=== PATIENT | male | born 1955 | race Caucasian/White ===

== ENCOUNTER 2016-05-09 21:38 | Observation (INO) | payer MEDICAID ==
[~2016-05-09 21:38] MED LIST: REGADENOSON INJ 0.4 MG/5 ML DISP.SYRIN IV ONE
--- NOTE | 2016-05-09 22:01 | ER Document Report ---
ED Medical Screen (RME) - General Stated Complaint: CHEST PAIN Notes: 61 yo male c/o substernal chest pain, intermittant, x 1 hr. pressure. nonradiating. + nausea, + shortness of breath. 3/5. pt took 1 Ntg spray with some relief. presently 2/5. Hx/o PA x 2. CABG x 6 in 2004. + HTN, no DM. former smoker. BP is elevated. pt reports being under alot of stress recently. 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 TRAVEL OUTSIDE OF THE [place] IN LAST 30 DAYS: No - Related Data Allergies/Adverse Reactions: No Known Allergies Allergy (Unverified 05/04/14 13:05) Past Medical History - Past Medical History Cardiac Medical History: Reports: Hx Congestive Heart Failure, Hx Coronary Artery Disease, Hx Heart Attack, Hx Hypercholesterolemia, Hx Hypertension Pulmonary Medical History: Denies: Hx Asthma, Hx Bronchitis, Hx COPD, Hx Pneumonia Neurological Medical History: Denies: Hx Cerebrovascular Accident, Hx Seizures Malignancy Medical History: Reports Hx Prostate Cancer Musculoskeltal Medical History: Denies Hx Arthritis - Immunizations Hx Diphtheria, Pertussis, Tetanus Vaccination: Yes
--- NOTE | 2016-05-09 22:06 | ER Document Report ---
ED General - General Chief Complaint: Chest Pain Stated Complaint: CHEST PAIN Notes: Patient is 61-year-old male who presents with complaint of chest pain shortness of breath. He had a AK in 2004 and had coronary artery bypass. No fevers. No vomiting. No abdominal pain. Patient says that the pain is mostly in the substernal area and nonradiating. He also short of breath and gets up and exerts himself. Pain has since subsided after he took nitroglycerin and aspirin at home. He took nitroglycerin and aspirin just prior to come to ER. He still smokes shortness of breath. No recent changes in his medications. He is followed by heart doctor at [facility]. No cardiac catheterization since his bypass. Last cardiac stress test was a few years ago. TRAVEL OUTSIDE OF THE [place] IN LAST 30 DAYS: No - Related Data Allergies/Adverse Reactions: No Known Allergies Allergy (Unverified 05/04/14 13:05) Past Medical History - Social History Smoking Status: Former Smoker Frequency of alcohol use: None Drug Abuse: None Family History: Reviewed & Not Pertinent Patient has suicidal ideation: No Patient has homicidal ideation: No - Past Medical History Cardiac Medical History: Reports: Hx Congestive Heart Failure, Hx Coronary Artery Disease, Hx Heart Attack, Hx Hypercholesterolemia, Hx Hypertension Pulmonary Medical History: Denies: Hx Asthma, Hx Bronchitis, Hx COPD, Hx Pneumonia Neurological Medical History: Denies: Hx Cerebrovascular Accident, Hx Seizures Renal/ Medical History: Denies: Hx Peritoneal Dialysis Malignancy Medical History: Reports Hx Prostate Cancer Musculoskeltal Medical History: Denies Hx Arthritis - Immunizations Hx Diphtheria, Pertussis, Tetanus Vaccination: Yes Review of Systems - Review of Systems Notes: My Normal Review Basic REVIEW OF SYSTEMS: CONSTITUTIONAL : Denies fever, chills, or sweats. Denies recent illness. EENT: Denies eye, ear, throat, or mouth pain or symptoms. Denies nasal or sinus congestion. CARDIOVASCULAR: Had chest pain RESPIRATORY: Some dyspnea. GASTROINTESTINAL: Denies abdominal pain. Denies nausea, vomiting, or diarrhea. Denies constipation. Last BM: MUSCULOSKELETAL: Denies neck or back pain or joint pain or swelling. SKIN: Denies rash or skin lesions. NEUROLOGICAL: Denies altered mental status or loss of consciousness. Denies headache. Denies weakness or paralysis or loss of use of either side. Denies problems with gait or speech. Denies sensory or motor loss. ALL OTHER SYSTEMS REVIEWED AND NEGATIVE. Physical Exam - Vital signs Vitals: Temp Pulse BP Pulse Ox 98.2 F 77 155/103 H 95 05/09/16 21:51 05/09/16 21:51 05/09/16 21:51 05/09/16 21:51 - Notes Notes: General Appearance: Well nourished, alert, cooperative, no acute distress, no obvious discomfort. Well-appearing. Vitals: reviewed, See vital signs table. Head: no swelling or tenderness to the head Eyes: PERRL, EOMI, Conjuctiva clear Mouth: No decreasd moisture Neck: Supple, no neck tenderness, No thyromegaly Lungs: No wheezing, No rales, No rhonci, No accessory muscle use, good air exchange bilaterally. Heart: Normal rate, Regular rythm, No murmur, no rub Abdomen: Normal BS, soft, No rigidity, No abdominal tenderness, No guarding, no rebound, no abdominal masses, no organomegaly Extremities: strength 5/5 in all extremities, good pulses in all extremities, no swelling or tenderness in the extremities, no edema. Skin: warm, dry, appropriate color, no rash Neuro: speech clear, oriented x 3, normal affect, responds appropriately to questions. Course - Re-evaluation Re-evalutation: 05/09/16 23:27 - Vital Signs Vital signs: Temp Pulse Resp BP Pulse Ox 98.2 F 77 15 158/86 H 95 05/09/16 21:51 05/09/16 21:51 05/09/16 22:25 05/09/16 22:25 05/09/16 22:25 - Laboratory Result Diagrams: 05/09/16 22:17 05/09/16 22:17 Laboratory results interpreted by me: 05/09/16 22:17 RBC 4.23 L Hgb 12.6 L Hct 37.4 L - EKG Interpretation by Me Additional EKG results interpreted by me: 05/09/16 22:05 EKG is reviewed and interpreted by me. EKG shows normal sinus rhythm with rate of [address] segment elevation or depression. No ischemic T wave inversions. Occasional PVC. WA interval, QRS duration, QTC intervals are within normal range. There is no old EKG available for comparison. 05/09/16 22:07 05/09/16 23:40 - Transfer of Care Notes: 05/09/16 23:27 Patient is currently chest pain-free and the nitroglycerin did help his shortness of breath. He feels much improved. I am still concerned that symptoms could be related to coronary disease based on his history is Q symptoms today. I will speak with the hospitalist for consideration for admission. Discharge - Discharge Clinical Impression: Chest pain Qualifiers: Chest pain type: unspecified Qualified Code(s): R07.9 - Chest pain, unspecified Condition: Stable Disposition: ADMITTED OBSERVATION Admitting Provider: Hospitalist Unit Admitted: Telemetry
[2016-05-09] MEDS ORDERED: NITROGLYCERIN 2% OINTMENT 1 GM PACKET TP ONE (22:12)
[2016-05-09 22:29] LABS: ABSOLUTE BASOPHILS # (AUTO) 0.1 10^3/uL (0.0-0.2); ABSOLUTE EOSINOPHILS # (AUTO) 0.2 10^3/uL (0.0-0.6); ABSOLUTE LYMPHOCYTES (AUTO) 1.5 10^3/uL (0.5-4.7); ABSOLUTE MONOCYTES (AUTO) 0.7 10^3/uL (0.1-1.4); ABSOLUTE NEUT (AUTO) 5.2 10^3/uL (1.7-8.2); BASOPHILS % (AUTO) 0.8 % (0-2); HEMATOCRIT 37.4 % (37.9-51.0); HEMOGLOBIN 12.6 g/dL (13.5-17.0); HGB HCT DIFFERENCE 0.4; LYMPHOCYTES % (AUTO) 19.8 % (13-45); MEAN CORPUSCULAR HEMOGLOBIN 29.8 pg (27.0-33.4); MEAN CORPUSCULAR HGB CONC 33.8 g/dL (32.0-36.0); MEAN CORPUSCULAR VOLUME 88 fl (80-97); MONOCYTES % (AUTO) 8.6 % (3-13); RED BLOOD COUNT 4.23 10^6/uL (4.35-5.55); RED CELL DISTRIBUTION WIDTH 13.8 % (11.5-14.0); SEGMENTED NEUTROPHILS % (AUTO) 67.8 % (42-78); WHITE BLOOD COUNT 7.6 10^3/uL (4.0-10.5)
[2016-05-09 22:48] LABS: ALANINE AMINOTRANSFERASE 27 U/L (21-72); ALBUMIN 4.4 g/dL (3.5-5.0); ALKALINE PHOSPHATASE 60 U/L (38-126); ANION GAP 10 (5-19); ASPARTATE AMINO TRANSFERASE 18 U/L (17-59); BILIRUBIN,TOTAL 0.7 mg/dL (0.2-1.3); BLOOD UREA NITROGEN 18 mg/dL (7-20); CALCIUM 9.7 mg/dL (8.4-10.2); CARBON DIOXIDE 29 mmol/L (22-30); CHLORIDE 104 mmol/L (98-107); CREATINE KINASE 64 U/L (55-170); CREATININE RESULT 0.81 mg/dL (0.52-1.25); GLUCOSE 100 mg/dL (75-110); POTASSIUM 4.3 mmol/L (3.6-5.0); SODIUM 142.8 mmol/L (137-145); TOTAL PROTEIN 6.9 g/dL (6.3-8.2)
[2016-05-09 23:00] LABS: CREATINE KINASE MB 0.71 ng/mL (<4.55)
[2016-05-09 23:01] LABS: TROPONIN I < 0.012 ng/mL
[2016-05-09] MEDS ORDERED: NITROGLYCERIN 0.4 MG/TAB 25 TAB/BOTTLE SL PRN (23:42)
[2016-05-09] MEDS ORDERED: ENALAPRILAT DIHYDRATE INJ/PF 1.25 MG/1 ML SDV IV PRN (23:42)
[2016-05-10] MEDS ORDERED: AMLODIPINE BESYLATE 5 MG TABLET PO ONE (01:00)
[2016-05-10 04:24] LABS: CHOLESTEROL 139.35 mg/dL (0-200); CREATINE KINASE 52 U/L (55-170); Direct HDL 47 mg/dL (>40); TRIGLYCERIDES 141 mg/dL (<150)
[2016-05-10 04:35] LABS: DIRECT LDL 67 mg/dL (<100)
[2016-05-10 04:37] LABS: CREATINE KINASE MB 0.61 ng/mL (<4.55)
[2016-05-10 04:44] LABS: TROPONIN I < 0.012 ng/mL
--- NOTE | 2016-05-10 04:58 | PDOC H&P ---
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 Who had been in his usual state of health until approximately 24 hours prior to presentation noting exertional shortness of breath which improved with rest but had a recurrence prior to presentation associated with pain in the anterior chest which was relieved by nitroglycerin paste in the emergency room. Patient denies current chest pain and is comfortable. He recently started androgen deprivation therapy resulting in hot flashes within the last 2 weeks. Past Medical History Cardiac Medical History: Reports: Congestive Heart Failure, Coronary Artery Disease, Myocardial Infarction, Hyperlipidema, Hypertension Pulmonary Medical History: Denies: Asthma, Bronchitis, Chronic Obstructive Pulmonary Disease (COPD), Pneumonia Neurological Medical History: Denies: Seizures Musculoskeltal Medical History: Denies: Arthritis Psychiatric Medical History: Reports: Depression Hematology: Denies: Anemia Past Surgical History Past Surgical History: Reports: Coronary Artery Bypass Graft Social History Information Source: Patient Lives with: Family Smoking Status: Former Smoker Frequency of Alcohol Use: None Hx Recreational Drug Use: No Drugs: None - Advance Directive Resuscitation Status: Full Code Family History Family History: CAD Parental Family History Reviewed: Yes Children Family History Reviewed: Yes Sibling(s) Family History Reviewed.: Yes Medication/Allergy Home Medications: Aspirin [Aspirin EC] 81 mg PO DAILY 05/04/14 Furosemide [Lasix] 40 mg PO DAILY 05/04/14 Nebivolol HCl [Bystolic 2.5 mg Tablet] 2.5 mg PO DAILY 05/04/14 Simvastatin 40 mg PO QHS 05/04/14 Valsartan [Diovan 80 mg Tablet] 80 mg PO DAILY 05/04/14 Fluticasone/Salmeterol [Advair 250-50 Diskus 14 Dose/Diskus] 1 inh PO DAILY Oxycodone HCl/Acetaminophen [Percocet 5-325 mg Tablet] 1 tab PO Q4HP PRN #20 tablet 05/03/15 Allergies/Adverse Reactions: No Known Allergies Allergy (Unverified 05/04/14 13:05) Review of Systems Constitutional: ABSENT: chills, fever(s), headache(s), weight gain, weight loss Eyes: ABSENT: visual disturbances Ears: ABSENT: hearing changes Cardiovascular: ABSENT: chest pain, dyspnea on exertion, edema, orthropnea, palpitations Respiratory: ABSENT: cough, hemoptysis Gastrointestinal: ABSENT: abdominal pain, constipation, diarrhea, hematemesis, hematochezia, nausea, vomiting Genitourinary: ABSENT: dysuria, hematuria Musculoskeletal: ABSENT: joint swelling Integumentary: ABSENT: rash, wounds Neurological: ABSENT: abnormal gait, abnormal speech, confusion, dizziness, focal weakness, syncope Psychiatric: ABSENT: anxiety, depression, homidical ideation, suicidal ideation Endocrine: ABSENT: cold intolerance, heat intolerance, polydipsia, polyuria Hematologic/Lymphatic: ABSENT: easy bleeding, easy bruising Physical Exam Vital Signs: Temp Pulse Resp BP Pulse Ox 97.8 F 65 16 146/83 H 100 05/10/16 02:10 05/10/16 02:10 05/10/16 02:10 05/10/16 02:10 05/10/16 02:10 Intake & Output 05/08/16 05/09/16 05/10/16 11:59 11:59 11:59 Weight 86.2 kg General appearance: PRESENT: no acute distress, well-developed, well-nourished Head exam: PRESENT: atraumatic, normocephalic Eye exam: PRESENT: conjunctiva pink, EOMI, PERRLA. ABSENT: scleral icterus Ear exam: PRESENT: normal external ear exam Mouth exam: PRESENT: moist, tongue midline Neck exam: ABSENT: carotid bruit, JVD, lymphadenopathy, thyromegaly Respiratory exam: PRESENT: clear to auscultation ana. ABSENT: rales, rhonchi, wheezes Cardiovascular exam: PRESENT: RRR. ABSENT: diastolic murmur, rubs, systolic murmur Pulses: PRESENT: normal dorsalis pedis pul Vascular exam: PRESENT: normal capillary refill GI/Abdominal exam: PRESENT: normal bowel sounds, soft. ABSENT: distended, guarding, mass, organolmegaly, rebound, tenderness Rectal exam: PRESENT: deferred Extremities exam: PRESENT: full ROM. ABSENT: calf tenderness, clubbing, pedal edema Neurological exam: PRESENT: alert, awake, oriented to person, oriented to place , oriented to time, oriented to situation, CN II-XII grossly intact. ABSENT: motor sensory deficit Psychiatric exam: PRESENT: appropriate affect, normal mood. ABSENT: homicidal ideation, suicidal ideation Skin exam: PRESENT: dry, intact, warm. ABSENT: cyanosis, rash Results Laboratory Results: 05/10/16 04:00 Triglycerides 141 Cholesterol 139.35 LDL Cholesterol Direct 67 VLDL Cholesterol 28.0 HDL Cholesterol 47 05/10/16 05/10/16 04:00 04:00 Creatine Kinase 52 L CK-MB (CK-2) 0.61 Troponin I < 0.012 Impressions: Chest X-Ray 05/09/16 22:02 IMPRESSION: No consolidation, masses or pneumothorax. Mild right basilar pleural scarring. No acute effusion. Assessment & Plan - Diagnosis (1) Coronary artery disease Is this a current diagnosis for this admission?: YesPlan: Chest pain with coronary artery disease without recent stress test he'll be observed on a monitored bed evaluated for acute coronary syndrome and risk factors for coronary artery disease and a Cardiolite stress test (2) COPD (chronic obstructive pulmonary disease) Is this a current diagnosis for this admission?: YesPlan: Albuterol, Atrovent and consideration of antibiotics if bronchitis evolves (3) Prostate cancer Is this a current diagnosis for this admission?: YesPlan: Known prostate cancer with recent initiation of androgen deprivation therapy, clear increased risk for thromboembolism though his history does not suggest. If persistent pain or shortness of breath strongly consider CT of the chest for evaluation of PE - Time Time Spent: 30 to 50 Minutes
[2016-05-10] MEDS ORDERED: LANSOPRAZOLE 15 MG TAB.RAP.DR PO SCH (06:00)
[2016-05-10] MEDS: HEPARIN SOD (PORCINE) 5,000 UNIT/ML 1 ML SYRINGE SUBCUT SCH ×2 (06:08→13:34)
[2016-05-10] MEDS ORDERED: FLUTICASONE/SALMETEROL DISKUS 250-50 MCG/DOSE IH SCH (08:00)
[2016-05-10] MEDS ORDERED: NEBIVOLOL HCL 2.5 MG TABLET PO SCH (10:00)
[2016-05-10] MEDS ORDERED: VALSARTAN 80 MG TABLET PO SCH (10:00)
[2016-05-10] MEDS ORDERED: DOCUSATE SODIUM 100 MG CAPSULE PO SCH (10:00)
[2016-05-10] MEDS ORDERED: FUROSEMIDE 20 MG TABLET PO SCH (10:00)
[2016-05-10] MEDS ORDERED: FUROSEMIDE 40 MG TABLET PO SCH (10:00)
[2016-05-10] MEDS ORDERED: CALCIUM CARBONATE 250 MG/VITAMIN D3 125 UNIT TABLET PO SCH (10:00)
[2016-05-10 10:11] LABS: CREATINE KINASE MB 0.48 ng/mL (<4.55)
[2016-05-10 10:16] LABS: TROPONIN I < 0.012 ng/mL
[2016-05-10] MEDS: ASPIRIN 81 MG TABLET, ENT COATED PO SCH ×2 (10:46→12:00)
--- NOTE | 2016-05-10 11:14 | EKG REPORT ---
SEVERITY:- BORDERLINE ECG - SINUS RHYTHM VENTRICULAR PREMATURE COMPLEX CONSIDER ANTERIOR INFARCT : Confirmed by: Gil Howell 10-May-2016 11:13:25
[2016-05-10 12:21] VITALS: BP 167/80
[2016-05-10] MEDS ORDERED: NEBIVOLOL HCL 5 MG TABLET PO ONE (13:00)
[2016-05-10] MEDS ORDERED: ACETAMINOPHEN 325 MG TABLET PO PRN (13:03)
--- NOTE | 2016-05-10 14:58 | PDOC DISCHARGE SUMMARY ---
General - Admit/Disc Date/PCP Admission Date/Primary Care Provider: 05/09/16 23:42 MIRANDA LOU MD Discharge Date: 05/10/16 - Discharge Diagnosis (1) Coronary artery disease Is this a current diagnosis for this admission?: Yes (2) Recent pneumonia Is this a current diagnosis for this admission?: YesSummary: Chest x-ray shows clearance (3) Chest pain Is this a current diagnosis for this admission?: Yes (4) COPD (chronic obstructive pulmonary disease) Is this a current diagnosis for this admission?: Yes (5) Prostate cancer Is this a current diagnosis for this admission?: Yes - Additional Information Resuscitation Status: Full Code Discharge Diet: Cardiac Discharge Activity: Activity As Tolerated Home Medications: Aspirin [Aspirin EC] 81 mg PO DAILY 05/10/16 Fluticasone/Salmeterol [Advair 250-50 Diskus 14 Dose/Diskus] 1 inh IH Q12 #1 inhaler 05/10/16 Furosemide [Lasix] 40 mg PO DAILY 05/10/16 Nebivolol HCl [Bystolic 2.5 mg Tablet] 2.5 mg PO DAILY 05/10/16 Oxycodone HCl/Acetaminophen [Oxycodone-Acetaminophen 5-325] 1 each PO TID Simvastatin [Zocor 40 mg Tablet] 40 mg PO QHS 05/10/16 Valsartan [Diovan 80 mg Tablet] 80 mg PO DAILY 05/10/16 History of Present Illness Patient complains of: Chest pain History of Present Illness: JEANNINE VALLECILLO is a 61 year old male with a past medical history of COPD, prostate cancer with 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 Who had been in his usual state of health until approximately 24 hours prior to presentation noting exertional shortness of breath which improved with rest but had a recurrence prior to presentation associated with pain in the anterior chest which was relieved by nitroglycerin paste in the emergency room. Patient denies current chest pain and is comfortable. He recently started androgen deprivation therapy resulting in hot flashes within the last 2 weeks. Hospital Course Hospital Course: The patient was observed in a continues telemetry unit, serial cardiac enzymes were obtained which were nonsuggestive. 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 Patient had no further replication of symptoms. The patient underwent a Cardiolite stress test which showed 3 separate areas of scarring fixed defect and minimal reversible ischemia. Cardiology recommendations were to maximize medical therapy. The patient is currently on beta flakita, ARB, aspirin and statin therapies. The patient feels his symptoms may be related to his recent pneumonia. The patient denies any further wheezing and no further symptoms and is ready for discharge. Physical Exam Vital Signs: Temp Pulse Resp BP Pulse Ox 98.1 F 75 12 167/80 H 99 05/10/16 14:35 05/10/16 14:35 05/10/16 14:35 05/10/16 14:35 05/10/16 14:35 Intake & Output 05/08/16 05/09/16 05/10/16 23:59 23:59 23:59 Intake Total 3 Balance 3 Weight 86.2 kg General appearance: PRESENT: no acute distress, cooperative, well-developed, well-nourished Head exam: PRESENT: atraumatic, normocephalic Eye exam: PRESENT: conjunctiva pink, EOMI, PERRLA. ABSENT: scleral icterus Ear exam: PRESENT: normal external ear exam Mouth exam: PRESENT: moist, tongue midline Neck exam: ABSENT: carotid bruit, JVD, lymphadenopathy, thyromegaly Respiratory exam: PRESENT: clear to auscultation ana, symmetrical, unlabored. ABSENT: rales, rhonchi, tachypnea, wheezes Cardiovascular exam: PRESENT: RRR. ABSENT: diastolic murmur, rubs, systolic murmur Pulses: PRESENT: normal dorsalis pedis pul Vascular exam: PRESENT: normal capillary refill GI/Abdominal exam: PRESENT: normal bowel sounds, soft. ABSENT: distended, guarding, mass, organolmegaly, rebound, tenderness Rectal exam: PRESENT: deferred Extremities exam: PRESENT: full ROM. ABSENT: calf tenderness, clubbing, pedal edema Neurological exam: PRESENT: alert, awake, oriented to person, oriented to place , oriented to time, oriented to situation, CN II-XII grossly intact. ABSENT: motor sensory deficit Psychiatric exam: PRESENT: appropriate affect, normal mood. ABSENT: homicidal ideation, suicidal ideation Skin exam: PRESENT: dry, intact, warm. ABSENT: cyanosis, rash Results Laboratory Results: Labs- Last Values WBC 7.6 10^3/uL (4.0-10.5) 05/09/16 22:17 RBC 4.23 10^6/uL (4.35-5.55) L 05/09/16 22:17 Hgb 12.6 g/dL (13.5-17.0) L 05/09/16:17 Hct 37.4 % (37.9-51.0) L 05/09/16: MCV 88 fl (80-97) 05/09/16: MCH 29.8 pg (27.0-33.4) 05/09/16: MCHC 33.8 g/dL (32.0-36.0) 05/09/16: RDW 13.8 % (11.5-14.0) 05/09/16: Plt Count 173 10^3/uL (150-450) 05/09/16: Seg Neutrophils % 67.8 % (42-78) 05/09/16: Lymphocytes % 19.8 % (13-45) 05/09/16: Monocytes % 8.6 % (3-13) 05/09/16: Eosinophils % 3.0 % (0-6) 05/09/16: Basophils % 0.8 % (0-2) 05/09/16: Absolute Neutrophils 5.2 10^3/uL (1.7-8.2) 05/09/16: Absolute Lymphocytes 1.5 10^3/uL (0.5-4.7) 05/09/16: Absolute Monocytes 0.7 10^3/uL (0.1-1.4) 05/09/16: Absolute Eosinophils 0.2 10^3/uL (0.0-0.6) 05/09/16: Absolute Basophils 0.1 10^3/uL (0.0-0.2) 05/09/16:17 Sodium 142.8 mmol/L (137-145) 05/09/16 22:17 Potassium 4.3 mmol/L (3.6-5.0) 05/09/16 22:17 Chloride 104 mmol/L (98-107) 05/09/16 22:17 Carbon Dioxide 29 mmol/L (22-30) 05/09/16 22:17 Anion Gap 10 (5-19) 05/09/16 22: BUN 18 mg/dL (7-20) 05/09/16 22: Creatinine 0.81 mg/dL (0.52-1.25) 05/09/16 22:17 Est GFR ( Amer) > 60 (>60) 05/09/16 22: Est GFR (Non-Af Amer) > 60 (>60) 05/09/16 22: Glucose 100 mg/dL (75-110) 05/09/16 22: Calcium 9.7 mg/dL (8.4-10.2) 05/09/16 22: Total Bilirubin 0.7 mg/dL (0.2-1.3) 05/09/16: Direct Bilirubin 0.0 mg/dL (0.0-0.3) 05/09/16 22: AST 18 U/L (17-59) 05/09/16 22: ALT 27 U/L (21-72) 05/09/16 22: Alkaline Phosphatase 60 U/L (38-126) 05/09/16 22:17 Creatine Kinase 52 U/L (55-170) L 05/10/16 04:00 CK-MB (CK-2) 0.48 ng/mL (<4.55) 05/10/16 08:49 Troponin I < 0.012 ng/mL 05/10/16 08:49 Total Protein 6.9 g/dL (6.3-8.2) 05/09/16 22: Albumin 4.4 g/dL (3.5-5.0) 05/09/16 22:17 Triglycerides 141 mg/dL (<150) 05/10/16 04:00 Cholesterol 139.35 mg/dL (0-200) 05/10/16 04:00 LDL Cholesterol Direct 67 mg/dL (<100) 05/10/16 04:00 VLDL Cholesterol 28.0 mg/dL (10-31) 05/10/16 04:00 HDL Cholesterol 47 mg/dL (>40) 05/10/16 04:00 TSH 2.24 uIU/mL (0.47-4.68) 05/09/16 22:17 Impressions: Chest X-Ray 05/09/16 22:02 IMPRESSION: No consolidation, masses or pneumothorax. Mild right basilar pleural scarring. No acute effusion. Qualifiers PATEINT BEING DISCHARGED WITH ANY OF THE FOLLOWING DIAGNOSIS?: No Plan Time Spent: Less than 30 Minutes
[2016-05-10] MEDS ORDERED: SIMVASTATIN 40 MG TABLET PO SCH (22:00)
--- NOTE | 2016-05-12 19:04 | DRAGON STRESS TEST REPORT ---
Intravenous Lexiscan Cardiolite stress test using single photon emmision computerized tomography. Date of procedure: Ordering Provider: Indication: Chest pain. Coronary risk factors: Resting EKG: Stress EKG:[ No changes of ischemia. Reason for termination: Protocol. Conclusions: Normal EKG and hemodynamic response to IV Lexiscan. Nuclear data: At rest the patient was given millicuries of technetium 99m sestamibi injected intravenously. As per protocol rest non gated SPECT images were obtained. Subsequently the patient was given intravenous Lexiscan at a dose of 0.4 mg in 5 mL intravenously, followed by flush with normal saline. Subsequently the stress dose of millicuries of technetium 99m sestamibi was injected intravenously. As per protocol stress gated images were obtained. Nuclear interpretation: Review of images showed that all segments of the myocardium had normal perfusion at rest, and normal perfusion post stress with IV Lexiscan. All segments of the myocardium had normal motion, contraction, and thickening by gated study. T. I D. ratio was normal at . Computer read rest, and stress left ventricular ejection fraction were %, and %, respectively. Visually both the stress and rest ejection fractions were normal, and greater than 55%. Conclusion: 1. There is no scintigraphic evidence of Lexiscan induced myocardial ischemia. 2. There is no scintigraphic evidence of myocardial infarction/scar. Recommendations: Aggressive risk factor modification, and treating the underlying co- morbidities. MTDD
== END 2016-05-10 15:06 | disposition home or self-care (01) ==
LOC: ER 21:38 → EEVIPCON 21:38 → EH 23:42 → 5 05-10 02:09
PROVIDERS: ADMIT Internal Medicine; ATTEND Internal Medicine
DX: R07.9 Chest pain, unspecified (principal); I25.10 Atherosclerotic heart disease of native coronary artery without angina pectoris; I11.0 Hypertensive heart disease with heart failure; I50.9 Heart failure, unspecified; J44.9 Chronic obstructive pulmonary disease, unspecified; C61 Malignant neoplasm of prostate; C79.51 Secondary malignant neoplasm of bone; I25.2 Old myocardial infarction; Z95.1 Presence of aortocoronary bypass graft; Z87.891 Personal history of nicotine dependence
CPT/HCPCS: 93005; 99285; 36415 ×2; 82553 ×2; 82550 ×2; 84443; 85025; 80053; 84484 ×2; 80061; 93017; 71020; 78452; 93010; G0378 ×2; A9500; J2785; J3490 ×6; J1644; Q9969

== ENCOUNTER → 2017-03-26 | Outpatient (CLI) | payer MEDICAID ==
--- NOTE | 2017-03-26 17:20 | RADIOLOGY REPORT (SQ) ---
EXAM DESCRIPTION: CT CHEST WITH COMPLETED DATE/TIME: 03/26/2017 4:58 pm REASON FOR STUDY: PROSTATE CA (C61), CHEST PAIN (R07.9) C61 MALIGNANT NEOPLASM OF PROSTATE R07.9 C HEST PAIN, UNSPECIFIED COMPARISON: CT chest 09/30/2015, 07/27/2009, 04/07/2009 TECHNIQUE: CT scan of the chest performed using helical scanning technique with dynamic intravenous contrast injection. Images reviewed with lung, soft tissue and bone windows. Reconstructed coronal and sagittal MPR images reviewed. All images stored on PACS. All CT scanners at this facility use dose modulation, iterative reconstruction, and/or weight based d osing when appropriate to reduce radiation dose to as low as reasonably achievable (ALARA). [facility]: Dose Right [facility]: CareDose [facility]: Dose Right [facility]: Teradose 4D [facility]: Diagnovus CONTRAST TYPE AND DOSE: contrast/concentration: Isovue 370.00 mg/ml; Total Contrast Delivered: 80.0 ml; Total Saline Delivered: 41.0 ml RENAL FUNCTION: Creatinine 1.2 RADIATION DOSE: CT Rad equipment meets quality standard of care and radiation dose reduction techniq ues were employed. CTDIvol: 18.8 mGy. DLP: 749 mGy-cm. . LIMITATIONS: None. FINDINGS: LUNGS AND PLEURA: There is stable bandlike scarring in the posterior aspect and medial asp ect of the right lower lobe. This is very similar compared to studies dating back to 2009 in the rig posterior costophrenic sulcus. There is stable right pleural thickening. Left lung and pleura unremarkable. No pneumothorax. No pleural effusions. HILAR AND MEDIASTINAL STRUCTURES: No identified masses or abnormal nodes. HEART AND VASCULAR STRUCTURES: No aneurysm or dissection. No central pulmonary emboli. No pericardi al effusion. Mild cardiomegaly. Diffuse heavily calcified coronary arteries. Old sternotomy and CA BG HARDWARE: Right-sided permanent central line tip superior vena cava. Left-sided pacemaker. UPPER ABDOMEN: No significant findings. Limited exam. THYROID AND OTHER SOFT TISSUES: Bilateral gynecomastia BONES: Stable bony metastatic disease in the thoracic spine, heavy is burden is at the T11 level OTHER: No other significant finding. IMPRESSION: Stable sclerotic bony metastatic lesions. No worrisome lung or pleural findings TECHNICAL DOCUMENTATION: JOB ID: [id number] Quality ID # [id number]: Final reports with documentation of one or more dose reduction techniques (e.g., Au tomated exposure control, adjustment of the mA and/or kV according to patient size, use of iterative reconstruction technique) 2010 [employer]- All Rights Reserved
== END ==
LOC: RAD 13:39
PROVIDERS: ATTEND Internal Medicine Hematology & Oncology
DX: R07.89 Other chest pain (principal); C61 Malignant neoplasm of prostate
CPT/HCPCS: 71260

== ENCOUNTER 2018-01-02 13:54 | Observation (INO) | payer MEDICAID ==
[2018-01-02] MEDS ORDERED: NITROGLYCERIN 0.4 MG/TAB 25 TAB/BOTTLE SL PRN ×2 (14:39→21:06)
[2018-01-02] MEDS ORDERED: ASPIRIN 81 MG TABLET, CHEWABLE PO ONE (14:39)
--- NOTE | 2018-01-02 14:44 | ER Document Report ---
ED Medical Screen (RME) - General Chief Complaint: Chest Pain Stated Complaint: CHEST PAIN Time Seen by Provider: 01/02/18 14:33 Notes: 62-year-old male with a history of 6 way bypass in 2 heart attacks presents the emergency department complaining of sharp substernal chest pain that has been going on since noon when he was eating. States that he tried nitroglycerin 3 times and it did not make a difference. He did take aspirin before coming to the emergency department. TRAVEL OUTSIDE OF THE [place] IN LAST 30 DAYS: No - Related Data Allergies/Adverse Reactions: lisinopril Adverse Reaction (Verified 01/02/18 14:38) cough Past Medical History - General Information source: Patient - Social History Cigarette use (# per day): No - Former smoker Chew tobacco use (# tins/day): No Frequency of alcohol use: None Drug Abuse: None - Past Medical History Cardiac Medical History: Reports: Hx Congestive Heart Failure, Hx Coronary Artery Disease, Hx Heart Attack, Hx Hypercholesterolemia, Hx Hypertension Pulmonary Medical History: Denies: Hx Asthma, Hx Bronchitis, Hx COPD, Hx Pneumonia Neurological Medical History: Denies: Hx Cerebrovascular Accident, Hx Seizures Renal/ Medical History: Denies: Hx Peritoneal Dialysis Malignancy Medical History: Reports Hx Prostate Cancer Musculoskeltal Medical History: Denies Hx Arthritis Psychiatric Medical History: Reports: Hx Depression Past Surgical History: Reports: Hx Cardiac Surgery - defib, Hx Coronary Artery Bypass Graft, Hx Open Heart Surgery - x 6 v - Immunizations Hx Diphtheria, Pertussis, Tetanus Vaccination: Yes Review of Systems - Review of Systems Constitutional: Diaphoresis EENT: No symptoms reported Cardiovascular: See HPI Physical Exam - Vital signs Vitals: Temp Pulse Resp BP Pulse Ox 98.4 F 75 18 152/81 H 99 01/02/18 13:58 01/02/18 13:58 01/02/18 13:58 01/02/18 13:58 01/02/18 13:58 Interpretation: Hypertensive - Notes Notes: Patient is diaphoretic, appears uncomfortable, intermittently clutching his chest and is shifting back and forth in his chair. Heart: Regular rate and rhythm no murmurs gallops or rubs. Lungs: clear to auscultation bilaterally Skin: Facial skin has spider veins. Course - Vital Signs Vital signs: Temp Pulse Resp BP Pulse Ox 98.4 F 75 18 152/81 H 99 01/02/18 13:58 01/02/18 13:58 01/02/18 13:58 01/02/18 13:58 01/02/18 13:58 Doctor's Discharge - Discharge Referrals: KHRIS CANTRELL MD [Primary Care Provider] - Follow up as needed
[2018-01-02 15:05] LABS: ABSOLUTE BASOPHILS # (AUTO) 0.1 10^3/uL (0.0-0.2); ABSOLUTE EOSINOPHILS # (AUTO) 0.2 10^3/uL (0.0-0.6); ABSOLUTE LYMPHOCYTES (AUTO) 2.4 10^3/uL (0.5-4.7); ABSOLUTE MONOCYTES (AUTO) 0.8 10^3/uL (0.1-1.4); ABSOLUTE NEUT (AUTO) 5.3 10^3/uL (1.7-8.2); BASOPHILS % (AUTO) 0.6 % (0-2); EOSINOPHILS % (AUTO) 2.2 % (0-6); HEMATOCRIT 37.5 % (37.9-51.0); HEMOGLOBIN 12.7 g/dL (13.5-17.0); LYMPHOCYTES % (AUTO) 27.7 % (13-45); MEAN CORPUSCULAR HEMOGLOBIN 29.7 pg (27.0-33.4); MEAN CORPUSCULAR VOLUME 88 fl (80-97); PLATELET COUNT 188 10^3/uL (150-450); RED BLOOD COUNT 4.28 10^6/uL (4.35-5.55); RED CELL DISTRIBUTION WIDTH 13.7 % (11.5-14.0); SEGMENTED NEUTROPHILS % (AUTO) 60.5 % (42-78); TOTAL CELLS COUNTED % (AUTO) 100 %; WHITE BLOOD COUNT 8.7 10^3/uL (4.0-10.5)
[2018-01-02 15:19] LABS: ALANINE AMINOTRANSFERASE 33 U/L (21-72); ALBUMIN 4.3 g/dL (3.5-5.0); ALKALINE PHOSPHATASE 199 U/L (38-126); ANION GAP 13 (5-19); ASPARTATE AMINO TRANSFERASE 31 U/L (17-59); BILIRUBIN,DIRECT 0.1 mg/dL (0.0-0.4); BILIRUBIN,TOTAL 0.4 mg/dL (0.2-1.3); BLOOD UREA NITROGEN 18 mg/dL (7-20); CALCIUM 9.2 mg/dL (8.4-10.2); CARBON DIOXIDE 27 mmol/L (22-30); CHLORIDE 103 mmol/L (98-107); CREATINE KINASE 126 U/L (55-170); GLUCOSE 89 mg/dL (75-110); POTASSIUM 3.7 mmol/L (3.6-5.0); SODIUM 143.3 mmol/L (137-145); TOTAL PROTEIN 7.3 g/dL (6.3-8.2)
--- NOTE | 2018-01-02 15:27 | RADIOLOGY REPORT (SQ) ---
EXAM DESCRIPTION: CHEST SINGLE VIEW COMPLETED DATE/TIME: 01/02/2018 3:10 pm REASON FOR STUDY: chest pain COMPARISON: 05/09/2016 EXAM PARAMETERS: NUMBER OF VIEWS: One view. TECHNIQUE: Single frontal radiographic view of the chest acquired. RADIATION DOSE: NA LIMITATIONS: None. FINDINGS: LUNGS AND PLEURA: No opacities, masses or pneumothorax. No pleural effusion. MEDIASTINUM AND HILAR STRUCTURES: No masses. Contour normal. HEART AND VASCULAR STRUCTURES: Stable heart size. Normal vasculature. BONES: No acute findings. HARDWARE: CABG. Stable position of left defibrillator. Right-sided port not significantly changed. OTHER: No other significant finding. IMPRESSION: NO ACUTE RADIOGRAPHIC FINDING IN THE CHEST. TECHNICAL DOCUMENTATION: JOB ID: [id number] [employer]- All Rights Reserved Reading location - IP/workstation name: [email or web address]
[2018-01-02 15:31] LABS: CREATINE KINASE MB 1.22 ng/mL (<4.55)
[2018-01-02 15:32] LABS: TROPONIN I < 0.012 ng/mL
[2018-01-02] MEDS ORDERED: NITROGLYCERIN 2% OINTMENT 1 GM PACKET TP ONE (15:34)
--- NOTE | 2018-01-02 15:40 | ER Document Report ---
ED General - General Chief Complaint: Chest Pain Stated Complaint: CHEST PAIN Time Seen by Provider: 01/02/18 14:33 Mode of Arrival: Ambulatory Information source: Patient Notes: Patient presents emergency department with complaints of substernal chest pain that started at noon when he was eating lunch. He describes the pain as constant sharp with episodes of stabbing pain and some pressure that radiates to his back. Reports history of bypass in 2005 defibrillator back surgery prostate surgery and is currently being treated for cancer that has metastasized to his bones. Reports the pain stays in the substernal area. He denies shortness of breath. He denies nausea vomiting diarrhea. Denies trauma. Reports he took aspirin and nitro spray before arriving. Reports no relief. Reports the nitro was from April 2017. Reports he had the same symptoms approximately 1 month ago. He followed up with his audio video tech Dr. Del Rio in [place]. They report no EKG changes. A stress test was done he reports in 2018 TRAVEL OUTSIDE OF THE [place] IN LAST 30 DAYS: No - HPI Onset: This afternoon Onset/Duration: Sudden, Persistent Quality of pain: Sharp Severity: Severe Pain Level: 4 Associated symptoms: None Exacerbated by: Denies Relieved by: Denies Similar symptoms previously: Yes Recently seen / treated by doctor: Yes - Related Data Allergies/Adverse Reactions: lisinopril Adverse Reaction (Verified 01/02/18 14:38) cough Past Medical History - General Information source: Patient - Social History Smoking Status: Former Smoker Cigarette use (# per day): No - Former smoker Chew tobacco use (# tins/day): No Frequency of alcohol use: None Drug Abuse: None Family History: CAD Patient has suicidal ideation: No Patient has homicidal ideation: No - Past Medical History Cardiac Medical History: Reports: Hx Congestive Heart Failure, Hx Coronary Artery Disease, Hx Heart Attack, Hx Hypercholesterolemia, Hx Hypertension Pulmonary Medical History: Denies: Hx Asthma, Hx Bronchitis, Hx COPD, Hx Pneumonia Neurological Medical History: Denies: Hx Cerebrovascular Accident, Hx Seizures Renal/ Medical History: Denies: Hx Peritoneal Dialysis Malignancy Medical History: Reports Hx Prostate Cancer Musculoskeletal Medical History: Denies Hx Arthritis Psychiatric Medical History: Reports: Hx Depression Past Surgical History: Reports: Hx Cardiac Surgery - defib, Hx Coronary Artery Bypass Graft, Hx Open Heart Surgery - x 6 v - Immunizations Hx Diphtheria, Pertussis, Tetanus Vaccination: Yes Review of Systems - Review of Systems Notes: Review HPI for review of systems., All other systems negative Physical Exam - Vital signs Vitals: Temp Pulse Resp BP Pulse Ox 98.4 F 75 18 152/81 H 99 01/02/18 13:58 01/02/18 13:58 01/02/18 13:58 01/02/18 13:58 01/02/18 13:58 - Notes Notes: PHYSICAL EXAMINATION: GENERAL: Non toxic looking HEAD: Atraumatic, normocephalic. EYES: extraocular movements intact, sclera anicteric, conjunctiva are normal. ENT: nares patent, Moist mucous membranes. NECK: Normal range of motion, supple without lymphadenopathy LUNGS: CTAB and equal. No wheezes rales or rhonchi. HEART: Irregular, sinus, no chest pain on palpation ABDOMEN: Soft, no tenderness. No guarding, no rebound EXTREMITIES: Normal range of motion, no pitting edema. No cyanosis. NEUROLOGICAL: Cranial nerves grossly intact. Normal sensory/motor exams. PSYCH: Normal mood, normal affect. SKIN: Warm, Dry, normal turgor, no rashes or lesions noted Course - Re-evaluation Re-evalutation: 01/02/18 16:14 Reports chest pain was relieved with Nitropaste. Patient reports his back is hurting but this is typical for him. He reports since he had surgery he has had back pain. PT REPORTS he is unable to undergo another cath due to his arteries, his audio video tech advises echo versus another stress test 01/02/18 17:57 ck 1.22 elevated from last visit, troponin 0.012 pt requested [facility] for history of back pain. pt is taking his own narcotic pain medication for his chronic back pain 01/02/18 17:59 Heart score of greater than 4. Patient has history of bypass MS. Patient is 62 years old former smoker also currently cancer that has metastasized to his bone. Pain controlled with Nitropaste. 01/02/18 18:55 No increase in second troponin. Patient requesting to go home. We discussed risk versus benefits. Patient reports that he if he could just have the Nitropaste that help control his pain. He reports he has had patches in the past but they made him feel sick he feels a lot better with the Nitropaste. 01/02/18 19:[address] Banda, noted some depression in lead I avl, advised patient to stay. I discussed this with patient patient is refusing to be admitted, I did tell patient that possibly he will go home and . He reports he will go home and in his chair. patients son was in the room when we discussed this and he verbalized understanding. 01/02/18 19:20 Son came to the nurses station reports patient is now willing to stay. Attempted to contact hospitalist dr borrego. 01/02/18 19:[address] Borrego who agrees to admit patient observation for chest pain. son and patient aware. - Vital Signs Vital signs: Temp Pulse Resp BP Pulse Ox 98.4 F 75 13 114/75 98 01/02/18 13:58 01/02/18 13:58 01/02/18 19:01 01/02/18 19:01 01/02/18 19:01 - Laboratory Result Diagrams: 01/02/18 14:50 01/02/18 14:50 Laboratory results interpreted by me: 01/02/18 01/02/18 14:50 14:50 RBC 4.28 L Hgb 12.7 L Hct 37.5 L Alkaline Phosphatase 199 H - Diagnostic Test Radiology reviewed: Image reviewed, Reports reviewed - EXAM DESCRIPTION: CHEST SINGLE VIEW COMPLETED DATE/TIME: 01/02/2018 3:10 pm REASON FOR STUDY: chest pain COMPARISON: 05/09/2016 EXAM PARAMETERS: NUMBER OF VIEWS: One view. TECHNIQUE: Single frontal radiographic view of the chest acquired. RADIATION DOSE: NA LIMITATIONS: None. FINDINGS: LUNGS AND PLEURA: No opacities, masses or pneumothorax. No pleural effusion. MEDIASTINUM AND HILAR STRUCTURES: No masses. Contour normal. HEART AND VASCULAR STRUCTURES: Stable heart size. Normal vasculature. BONES: No acute findings. HARDWARE: CABG. Stable position of left defibrillator. Right-sided port not significantly changed. OTHER: No other significant finding. IMPRESSION: NO ACUTE RADIOGRAPHIC FINDING IN THE CHEST - EKG Interpretation by Me EKG shows normal: Sinus rhythm Rate: Normal Rhythm: PVC's When compared to previous EKG there are: Changes noted - EKG shows normal sinus rhythm with rate of [address] segment elevation slight depression lead I. No ischemic T wave inversions. Occasional PVC. Discharge - Discharge Clinical Impression: Chest pain Qualifiers: Chest pain type: unspecified Qualified Code(s): R07.9 - Chest pain, unspecified Chronic back pain Qualifiers: Back pain location: back pain in other location Qualified Code(s): M54.9 - Dorsalgia, unspecified; G89.29 - Other chronic pain; G89.29 - Other chronic pain Condition: Stable Disposition: ADMITTED OBSERVATION Admitting Provider: [facility] Unit Admitted: Telemetry
[2018-01-02] MEDS ORDERED: CAPSAICIN HP 0.075% CREAM 60 GM TP ONE (17:54)
[2018-01-02] MEDS ORDERED: CAPSAICIN 0.025% CREAM 60 GM TP ONE (18:30)
[2018-01-02] MEDS ORDERED: MAG HYDROX/AL HYDROX/SIMETH SUSP 30 ML UDCUP PO PRN (21:06)
[2018-01-02] MEDS ORDERED: NEBIVOLOL HCL 2.5 MG TABLET PO SCH (22:00)
--- NOTE | 2018-01-02 22:25 | EKG REPORT ---
SEVERITY:- ABNORMAL ECG - SINUS RHYTHM MULTIFORM VENTRICULAR PREMATURE COMPLEXES NONSPECIFIC INTRAVENTRICULAR CONDUCTION DELAY PROBABLE INFERIOR INFARCT, OLD PROBABLE ANTEROSEPTAL INFARCT, OLD : Confirmed by: Fany Preston MD 02-Jan-2018 22:25:10
--- NOTE | 2018-01-02 22:26 | EKG REPORT ---
SEVERITY:- ABNORMAL ECG - SINUS RHYTHM VENTRICULAR PREMATURE COMPLEX NONSPECIFIC INTRAVENTRICULAR CONDUCTION DELAY BORDERLINE INFERIOR Q WAVES ABNRM R PROG, CONSIDER ASMI OR LEAD PLACEMENT : Confirmed by: Fany Preston MD 02-Jan-2018 22:25:18
[2018-01-02] MEDS ORDERED: SUCRALFATE SUSP 1 GM/10 ML UDCUP PO ONE (23:18)
[2018-01-02] MEDS ORDERED: CAPSAICIN HP 0.075% CREAM 60 GM TP PRN (23:42)
[2018-01-03 05:30] LABS: CHOLESTEROL 129.68 mg/dL (0-200); CREATINE KINASE 1244 U/L (55-170); TRIGLYCERIDES 172 mg/dL (<150)
[2018-01-03 05:41] LABS: DIRECT LDL 65 mg/dL (<100); VLDL CHOLESTEROL 34.4 mg/dL (10-31)
--- NOTE | 2018-01-03 05:52 | PDOC H&P ---
History of Present Illness Admission Date/PCP: 01/02/18 19:49 MIRANDA LOU MD Patient complains of: Chest pain History of Present Illness: JEANNINE VALLECILLO is a 62 year old male with a past medical history of COPD, prostate cancer with metastasis to bone, coronary artery disease status post coronary artery bypass grafting 2004, complicated by plaque rupture with CVA. April 2016 Cardiolite stress test suggests reversible ischemia. Patient states shear scrapman Dr. Del Rio in [place] will not consider coronary catheterization given the above complication. Subsequently recommending aggressive medical management. Patient presents 1 hour after 5 out of 5 sharp, retrosternal versus epigastric chest pain, radiating to the back associated with nausea without vomiting. His pain lasted approximately an hour he took nitroglycerin spray x2 without significant improvement. Patient states he sometimes gets similar pain associated with hunger. He denies GI workup, Recent change in medications. Past Medical History Cardiac Medical History: Reports: Congestive Heart Failure, Coronary Artery Disease, Myocardial Infarction, Hyperlipidema, Hypertension Pulmonary Medical History: Denies: Asthma, Bronchitis, Chronic Obstructive Pulmonary Disease (COPD), Pneumonia Neurological Medical History: Denies: Seizures Musculoskeltal Medical History: Denies: Arthritis Psychiatric Medical History: Reports: Depression Hematology: Denies: Anemia Past Surgical History Past Surgical History: Reports: Coronary Artery Bypass Graft Social History Information Source: Patient Smoking Status: Former Smoker Frequency of Alcohol Use: None Hx Recreational Drug Use: No Drugs: None - Advance Directive Resuscitation Status: Full Code Family History Family History: CAD Parental Family History Reviewed: Yes Children Family History Reviewed: Yes Sibling(s) Family History Reviewed.: Yes Medication/Allergy Home Medications: Aspirin [Aspirin EC] 81 mg PO DAILY 01/02/18 Calcium Carbonate/Vitamin D3 [Calcium 600-Vit D3 800 Tablet] 1 tab PO DAILY 02/09 Fluticasone/Salmeterol [Advair 250-50 Diskus 14 Dose/Diskus] 1 puff IH Q12 01/02 Furosemide [Lasix 40 mg Tablet] 40 mg PO DAILY 01/02/18 Nebivolol HCl [Bystolic 2.5 mg Tablet] 2.5 mg PO DAILY 01/02/18 Oxycodone HCl [Oxycontin] 10 mg PO QHS 01/02/18 Oxycodone HCl/Acetaminophen [Percocet 10-325 mg Tablet] 1 tab PO Q8HP PRN 10/11/ 18 Valsartan [Diovan 80 mg Tablet] 80 mg PO DAILY 01/02/18 Allergies/Adverse Reactions: lisinopril Adverse Reaction (Verified 01/02/18 14:38) cough Review of Systems Constitutional: ABSENT: chills, fever(s), headache(s), weight gain, weight loss Eyes: ABSENT: visual disturbances Ears: ABSENT: hearing changes Cardiovascular: ABSENT: chest pain, dyspnea on exertion, edema, orthropnea, palpitations Respiratory: ABSENT: cough, hemoptysis Gastrointestinal: ABSENT: abdominal pain, constipation, diarrhea, hematemesis, hematochezia, nausea, vomiting Genitourinary: ABSENT: dysuria, hematuria Musculoskeletal: ABSENT: joint swelling Integumentary: ABSENT: rash, wounds Neurological: ABSENT: abnormal gait, abnormal speech, confusion, dizziness, focal weakness, syncope Psychiatric: ABSENT: anxiety, depression, homidical ideation, suicidal ideation Endocrine: ABSENT: cold intolerance, heat intolerance, polydipsia, polyuria Hematologic/Lymphatic: ABSENT: easy bleeding, easy bruising Physical Exam Vital Signs: Temp Pulse Resp BP Pulse Ox 97.7 F 64 14 140/75 H 100 01/02/18 22:40 01/03/18 01:13 01/02/18 22:40 01/02/18 22:40 01/02/18 22:40 Intake & Output 01/01/18 01/02/18 01/03/18 11:59 11:59 11:59 Weight 115.6 kg General appearance: PRESENT: no acute distress, well-developed, well-nourished Head exam: PRESENT: atraumatic, normocephalic Eye exam: PRESENT: conjunctiva pink, EOMI, PERRLA. ABSENT: scleral icterus Ear exam: PRESENT: normal external ear exam Mouth exam: PRESENT: moist, tongue midline Neck exam: ABSENT: carotid bruit, JVD, lymphadenopathy, thyromegaly Respiratory exam: PRESENT: clear to auscultation ana. ABSENT: rales, rhonchi, wheezes Cardiovascular exam: PRESENT: RRR. ABSENT: diastolic murmur, rubs, systolic murmur Pulses: PRESENT: normal dorsalis pedis pul Vascular exam: PRESENT: normal capillary refill GI/Abdominal exam: PRESENT: normal bowel sounds, soft. ABSENT: distended, guarding, mass, organolmegaly, rebound, tenderness Rectal exam: PRESENT: deferred Extremities exam: PRESENT: full ROM. ABSENT: calf tenderness, clubbing, pedal edema Neurological exam: PRESENT: alert, awake, oriented to person, oriented to place , oriented to time, oriented to situation, CN II-XII grossly intact. ABSENT: motor sensory deficit Psychiatric exam: PRESENT: appropriate affect, normal mood. ABSENT: homicidal ideation, suicidal ideation Skin exam: PRESENT: dry, intact, warm. ABSENT: cyanosis, rash Results Laboratory Results: 01/02/18 22:25 Lipase 87.8 01/02/18 22:25 Troponin I < 0.012 Impressions: Chest X-Ray 01/02/18 14:39 IMPRESSION: NO ACUTE RADIOGRAPHIC FINDING IN THE CHEST. Assessment & Plan - Diagnosis (1) Atypical chest pain Is this a current diagnosis for this admission?: Yes Plan: Atypical chest pain complicated by known coronary artery disease, positive stress test April 2016. Not a candidate for invasive management given history of plaque rupture. Serial cardiac enzymes optimize medical management. (2) Gastritis Is this a current diagnosis for this admission?: Yes Plan: Most likely source of #1, Carafate and Prevacid. (3) Coronary artery disease Is this a current diagnosis for this admission?: Yes Plan: Optimize medical management. - Time Time Spent: 50 to 70 Minutes
[2018-01-03] MEDS ORDERED: LANSOPRAZOLE 30 MG TAB.RAP.DR PO SCH (06:00)
[2018-01-03] MEDS ORDERED: OXYCODONE-ACETAMINOPHEN 5-325 MG TABLET PO ONE ×2 (06:45→13:15)
[2018-01-03] MEDS ORDERED: DOCUSATE SODIUM 100 MG CAPSULE PO SCH (10:00)
[2018-01-03] MEDS ORDERED: ASPIRIN 81 MG TABLET, ENT COATED PO SCH (10:00)
[2018-01-03] MEDS ORDERED: VALSARTAN 80 MG TABLET PO SCH (10:00)
[2018-01-03] MEDS ORDERED: NEBIVOLOL HCL 2.5 MG TABLET PO SCH (10:15)
--- NOTE | 2018-01-03 12:32 | PDOC DISCHARGE SUMMARY ---
General - Admit/Disc Date/PCP Admission Date/Primary Care Provider: 01/02/18 19:49 MIRANDA LOU MD Discharge Date: 01/03/18 - Discharge Diagnosis (1) Atypical chest pain Is this a current diagnosis for this admission?: Yes Summary: Patient's pain was sharp and sternal. He has known metastatic disease to the sternum documented in 2016. His serial troponins were negative. Interestingly his CPKs which were done as part of his cardiac enzymes were 126 initially and rising to 1200. Patient did have a fall at home and has swelling in his left wrist. When informed that his troponins were negative he was insistent on leaving the hospital as soon as possible. Offered to repeat his CPK and do an x -ray of his wrist but he refused saying he would follow-up with his oncologist on Saturday and did not want to stay any longer. As his enzymes were negative he was discharged rather than signing out AGAINST MEDICAL ADVICE. (2) Elevated CPK Is this a current diagnosis for this admission?: Yes Summary: An unexplained rise of CPK with normal cardiac enzymes. Like related to his fall at home. Offered to do a stat repeat to confirm the elevated level was real he refused desiring to be discharged as soon as possible. Patient informed to have his oncologist check another level on Saturday when he sees him in the office. (3) Prostate cancer metastatic to bone Is this a current diagnosis for this admission?: Yes Summary: Widely metastatic disease documented 2 years ago more than likely has progressed. Suggest patient discuss his disease status with his oncologist and make a decision about resuscitation which currently is full code. (4) COPD (chronic obstructive pulmonary disease) Is this a current diagnosis for this admission?: Yes Summary: No active bronchospasm continue home medications (5) Coronary artery disease Is this a current diagnosis for this admission?: Yes - Additional Information Resuscitation Status: Full Code Discharge Activity: Activity As Tolerated Home Medications: Aspirin [Aspirin EC] 81 mg PO DAILY 01/02/18 Calcium Carbonate/Vitamin D3 [Calcium 600-Vit D3 800 Tablet] 1 tab PO DAILY 02/09 Fluticasone/Salmeterol [Advair 250-50 Diskus 14 Dose/Diskus] 1 puff IH Q12 01/02 Furosemide [Lasix 40 mg Tablet] 40 mg PO DAILY 01/02/18 Nebivolol HCl [Bystolic 2.5 mg Tablet] 2.5 mg PO DAILY 01/02/18 Oxycodone HCl [Oxycontin] 10 mg PO QHS 01/02/18 Oxycodone HCl/Acetaminophen [Percocet 10-325 mg Tablet] 1 tab PO Q8HP PRN Valsartan [Diovan 80 mg Tablet] 80 mg PO DAILY 01/02/18 History of Present Illness Patient complains of: Chest pain History of Present Illness: JEANNINE VALLECILLO is a 62 year old male with a past medical history of COPD, prostate cancer with metastasis to bone, coronary artery disease status post coronary artery bypass grafting 2004, complicated by plaque rupture with CVA. April 2016 Cardiolite stress test suggests reversible ischemia. Patient states airport operations officer Dr. Del Rio in [place] will not consider coronary catheterization given the above complication. Subsequently recommending aggressive medical management. Patient presents 1 hour after 5 out of 5 sharp, retrosternal versus epigastric chest pain, radiating to the back associated with nausea without vomiting. His pain lasted approximately an hour he took nitroglycerin spray x2 without significant improvement. Patient states he sometimes gets similar pain associated with hunger. He denies GI workup, Recent change in medications. Hospital Course Hospital Course: Patient was admitted to the telemetry floor and serial cardiac enzymes were done. His troponins were negative x3. Patient has chronic pain in the back and sternum from his known metastatic disease. Once informed that his cardiac enzymes were negative he requested to be discharged as he did not like the bed and could not get comfortable in the chair. He was informed that despite his troponins being negative his CPK had increased to 1000 without explanation. Patient said he did fall at home and his left wrist was swollen and somewhat tender. Offered to x-ray the wrist and repeat a stat CPK and if stable will discharge him he refused and insisting on being discharged immediately. As his CPK was not dangerously high using encouraged to hydrate and he has an appointment with his oncologist on Saturday and see his oncologist and have them repeat the level. He was informed of the risks of increasing CPK and its effect on the kidneys informed refusal was given and patient was discharged as per his request Physical Exam Vital Signs: Temp Pulse Resp BP Pulse Ox 98.1 F 76 16 169/82 H 100 01/03/18 11:19 01/03/18 11:19 01/03/18 11:19 01/03/18 11:19 01/03/18 11:19 Intake & Output 01/02/18 01/03/18 01/04/18 06:59 06:59 06:59 Weight 115.6 kg General appearance: PRESENT: no acute distress, well-developed, well-nourished Eye exam: PRESENT: conjunctiva pink, EOMI, PERRLA. ABSENT: scleral icterus Neck exam: ABSENT: carotid bruit, JVD, lymphadenopathy, thyromegaly Respiratory exam: PRESENT: clear to auscultation ana. ABSENT: rales, rhonchi, wheezes Cardiovascular exam: PRESENT: RRR. ABSENT: diastolic murmur, rubs, systolic murmur GI/Abdominal exam: PRESENT: normal bowel sounds, soft. ABSENT: distended, guarding, mass, organolmegaly, rebound, tenderness Extremities exam: PRESENT: tenderness - Left wrist mild swelling. ABSENT: calf tenderness Results Laboratory Results: 01/02/18 01/03/18 22:25 04:46 Triglycerides 172 H Cholesterol 129.68 LDL Cholesterol Direct 65 VLDL Cholesterol 34.4 H HDL Cholesterol 41 Lipase 87.8 01/02/18 01/03/18 01/03/18 22:25 04:46 04:46 Creatine Kinase 1244 H CK-MB (CK-2) Troponin I < 0.012 < 0.012 01/03/18 04:46 Creatine Kinase CK-MB (CK-2) 0.54 Troponin I Impressions: Chest X-Ray 01/02/18 14:39 IMPRESSION: NO ACUTE RADIOGRAPHIC FINDING IN THE CHEST. Qualifiers - * PATIENT BEING DISCHARGED WITH ANY OF THE FOLLOWING DIAGNOSIS: No Plan Time Spent: Less than 30 Minutes
[2018-01-03] MEDS ORDERED: OXYCODONE HCL IR 5 MG TABLET PO ONE (13:15)
[2018-01-03 13:25] VITALS: BP 140/73
== END 2018-01-03 13:45 | disposition home or self-care (01) ==
LOC: ER 13:54 → EH 19:49 → 4S 22:31
PROVIDERS: ADMIT Internal Medicine; ATTEND Internal Medicine
DX: R07.89 Other chest pain (principal); M25.432 Effusion, left wrist; W19.XXXA Unspecified fall, initial encounter; Z53.21 Procedure and treatment not carried out due to patient leaving prior to being seen by health care provider; R74.8 Abnormal levels of other serum enzymes; C61 Malignant neoplasm of prostate; C78.1 Secondary malignant neoplasm of mediastinum; C79.51 Secondary malignant neoplasm of bone; J44.9 Chronic obstructive pulmonary disease, unspecified; I25.10 Atherosclerotic heart disease of native coronary artery without angina pectoris; G89.3 Neoplasm related pain (acute) (chronic); M54.9 Dorsalgia, unspecified; K29.70 Gastritis, unspecified, without bleeding; I49.3 Ventricular premature depolarization; R61 Generalized hyperhidrosis; I25.2 Old myocardial infarction; I11.0 Hypertensive heart disease with heart failure; I50.9 Heart failure, unspecified; Z79.82 Long term (current) use of aspirin; Z79.899 Other long term (current) drug therapy; Z95.1 Presence of aortocoronary bypass graft; Z86.73 Personal history of transient ischemic attack (TIA), and cerebral infarction without residual deficits; Z82.49 Family history of ischemic heart disease and other diseases of the circulatory system; Z87.891 Personal history of nicotine dependence; Z95.810 Presence of automatic (implantable) cardiac defibrillator; Z98.890 Other specified postprocedural states; Z23 Encounter for immunization
CPT/HCPCS: 93005; 99285; 36415 ×2; 82553 ×2; 82550 ×2; 83690; 85025; 80053; 84484 ×2; 80061; 71045; 90686; 93010; G0378 ×3; G0008; J3490 ×7; 90471

== ENCOUNTER 2018-01-04 05:41 | Emergency (ER) | payer MEDICAID ==
[2018-01-04] MEDS ORDERED: HYDROMORPHONE HCL INJ/PF 2 MG/ML AMPULE IM ONE ×2 (07:10→09:10)
--- NOTE | 2018-01-04 07:15 | ER Document Report ---
ED General - General Chief Complaint: Back Pain Stated Complaint: BACK PAIN/SIDE Time Seen by Provider: 01/04/18 06:52 TRAVEL OUTSIDE OF THE [place]. IN LAST 30 DAYS: No - HPI Notes: Patient is a 62-year-old male that presents to the emergency department for chief complaint of left side pain. Patient has metastatic prostate cancer and chronic pain from metastasis. He states he has been having pain over his left side that radiates around into his left upper quadrant for the last few weeks. The pain is getting more severe. He has been taking OxyContin 10 mg and oxycodone 10/325 at home as prescribed by pain management. His last dose was the oxycodone at 3 AM. He states his pain medication is not improving his symptoms at all. He was just discharged from the hospital after cardiac evaluation that he states was a normal. He denies any change in his pain other than increased severity. He denies new injury or trauma. He denies any difficulty breathing, fevers, cough and diaphoresis. Past Medical History: Metastatic prostate cancer Past Surgical History: Reviewed in chart Social History: Reviewed in chart Family History: Reviewed and noncontributory for presenting illness Allergies: Reviewed, see documented allergy list. REVIEW OF SYSTEMS: CONSTITUTIONAL : No fever No chills No diaphoresis No recent illness EENT: No vision changes No congestion No sore throat CARDIOVASCULAR: chest pain No palpitations RESPIRATORY: No shortness of breath No cough No difficulty breathing GASTROINTESTINAL: No abdominal pain No nausea No vomiting No diarrhea GENITOURINARY: No dysuria No hematuria No difficulty urinating MUSCULOSKELETAL: back pain No leg pain No arm pain SKIN: No rashes No lesions LYMPHATIC: No swollen, enlarged glands. NEUROLOGICAL: No lightheadedness No headache No weakness No paresthesias PSYCHIATRIC: No anxiety No depression PHYSICAL EXAMINATION: Vital signs reviewed, nursing noted reviewed. GENERAL: Well-appearing, well-nourished and in no acute distress. HEAD: Atraumatic, normocephalic. EYES: Eyes appear normal, extraocular movements intact, sclera anicteric, conjunctiva are normal. ENT: nares patent, oropharynx clear without exudates. Moist mucous membranes. NECK: Normal range of motion, supple without lymphadenopathy LUNGS: Breath sounds diminished to auscultation bilaterally and equal. No wheezes rales or rhonchi. Lateral chest wall tenderness HEART: Regular rate and rhythm without murmurs ABDOMEN: Soft, nontender, normoactive bowel sounds. No rebound, guarding, or rigidity. No masses appreciated. EXTREMITIES: Nontender, good range of motion, no pitting or edema. NEUROLOGICAL: No focal neurological deficits. Moves all extremities spontaneously Motor and sensory grossly intact on exam. PSYCH: Normal mood, normal affect. SKIN: Warm, Dry, normal turgor, no rashes or lesions noted on exposed skin - Related Data Allergies/Adverse Reactions: lisinopril Adverse Reaction (Verified 01/02/18 14:38) cough Past Medical History - Social History Smoking Status: Never Smoker Family History: CAD Patient has suicidal ideation: No Patient has homicidal ideation: No - Past Medical History Cardiac Medical History: Reports: Hx Congestive Heart Failure, Hx Coronary Artery Disease, Hx Heart Attack, Hx Hypercholesterolemia, Hx Hypertension Pulmonary Medical History: Denies: Hx Asthma, Hx Bronchitis, Hx COPD, Hx Pneumonia Neurological Medical History: Denies: Hx Cerebrovascular Accident, Hx Seizures Renal/ Medical History: Denies: Hx Peritoneal Dialysis Malignancy Medical History: Reports Hx Prostate Cancer Musculoskeletal Medical History: Denies Hx Arthritis Psychiatric Medical History: Reports: Hx Depression Past Surgical History: Reports: Hx Cardiac Surgery - defib, Hx Coronary Artery Bypass Graft, Hx Open Heart Surgery - x 6 v - Immunizations Hx Diphtheria, Pertussis, Tetanus Vaccination: Yes Review of Systems - Review of Systems Notes: Dictated Physical Exam - Vital signs Vitals: Temp Pulse Resp BP Pulse Ox 98.0 F 91 16 169/92 H 97 01/04/18 05:49 01/04/18 05:49 01/04/18 05:49 01/04/18 05:49 01/04/18 05:49 - Notes Notes: Dictated Course - Re-evaluation Re-evalutation: 01/04/18 07:14 Vitals reviewed. Nursing notes reviewed. Patient given IM Dilaudid for pain control. 01/04/18 09:11 Patient reevaluated and had significant improvement of his symptoms. He states he is still having some discomfort on the left side but feels much better. He was given 1 more dose of IM Dilaudid. He will continue taking his home medications as prescribed. He will follow with oncology and pain management for further symptomatic treatment at home. He will return for new or worsening symptoms. Discharged home in stable condition. - Vital Signs Vital signs: Temp Pulse Resp BP Pulse Ox 98.0 F 91 16 169/92 H 97 01/04/18 05:49 01/04/18 05:49 01/04/18 05:49 01/04/18 05:49 01/04/18 05:49 Discharge - Discharge Clinical Impression: Left sided chest pain, Pain of metastatic malignancy Condition: Stable Disposition: HOME, SELF-CARE Instructions: Pain Medication Injection ([facility]) Additional Instructions: Please return to the emergency department if you have any worsening, or concern of your symptoms. Please return to the emergency department if you develop chest pain, difficulty breathing, severe abdominal pain, or ongoing vomiting. Please follow-up with your primary care physician in 2-3 days and any other recommended physicians. If prescribed, take all medications as directed. If you have any questions or concerns do not hesitate to return the emergency department for evaluation. [] Referrals: MIRANDA LOU MD [Primary Care Provider] - Follow up as needed
--- NOTE | 2018-01-04 08:36 | RADIOLOGY REPORT (SQ) ---
EXAM DESCRIPTION: CHEST SINGLE VIEW COMPLETED DATE/TIME: 01/04/2018 7:25 am REASON FOR STUDY: left chest pain COMPARISON: 01/02/2018. EXAM PARAMETERS: NUMBER OF VIEWS: One view. TECHNIQUE: Single frontal radiographic view of the chest acquired. RADIATION DOSE: NA LIMITATIONS: None. FINDINGS: LUNGS AND PLEURA: No opacities, masses or pneumothorax. Small right pleural effusion vers us pleural thickening, unchanged. MEDIASTINUM AND HILAR STRUCTURES: No masses. Contour normal. HEART AND VASCULAR STRUCTURES: Heart normal in size. Normal vasculature. BONES: No acute findings. Degenerative changes in the shoulders HARDWARE: Sternotomy wires. Defibrillator. Vascular access port. OTHER: No other significant finding. IMPRESSION: SMALL RIGHT PLEURAL EFFUSION VERSUS PLEURAL THICKENING, UNCHANGED. NO ACUTE RADIOGRAPHI C FINDING IN THE CHEST. TECHNICAL DOCUMENTATION: JOB ID: [id number] [employer]- All Rights Reserved Reading location - IP/workstation name: [email or web address]
[2018-01-04 09:51] VITALS: BP 147/75
== END 2018-01-04 09:50 | disposition home or self-care (01) ==
LOC: ER 05:41
DX: G89.3 Neoplasm related pain (acute) (chronic) (principal); C61 Malignant neoplasm of prostate; C79.9 Secondary malignant neoplasm of unspecified site; M54.9 Dorsalgia, unspecified; R07.9 Chest pain, unspecified; I50.9 Heart failure, unspecified; I25.10 Atherosclerotic heart disease of native coronary artery without angina pectoris; E78.00 Pure hypercholesterolemia, unspecified; I11.0 Hypertensive heart disease with heart failure; I25.2 Old myocardial infarction; Z95.1 Presence of aortocoronary bypass graft
CPT/HCPCS: 99283; 96372; 71045; J1170

== ENCOUNTER → 2018-01-08 | Outpatient (CLI) | payer MEDICAID ==
--- NOTE | 2018-01-08 15:21 | RADIOLOGY REPORT (SQ) ---
EXAM DESCRIPTION: NM WHOLE BODY BONE SCAN COMPLETED DATE/TIME: 01/08/2018 3:09 pm REASON FOR STUDY: MALIGNANT NEOPLASM OF PROSTATE C61 MALIGNANT NEOPLASM OF PROSTATE COMPARISON: 09/27/2015. RADIONUCLIDE AND DOSE: 20.0 millicuries Tc99m HDP. The route of agent administration: Intravenous. ADDITIONAL DRUGS AND DOSES: None. TECHNIQUE: Routine delayed images at 3 hour post radionuclide injection acquired of the bony skeleto n including anterior and posterior whole-body projections and additional focused images as needed. LIMITATIONS: None. FINDINGS: BONES: Interval increase in number of foci of increased uptake throughout the axial skelet on, ribs and pelvis. KIDNEYS: Symmetric excretion without obstruction. OTHER: No other significant finding. IMPRESSION: Increase in degree of bone metastasis. COMMENT: Quality measure 147: Current bone scan is compared with any available plain radiographs, p rior bone scans, and CT/MRI. TECHNICAL DOCUMENTATION: JOB ID: [id number] [employer]- All Rights Reserved Reading location - IP/workstation name: [email or web address]
== END ==
LOC: RAD 11:01
PROVIDERS: ATTEND Internal Medicine Hematology & Oncology
DX: C61 Malignant neoplasm of prostate (principal); C79.51 Secondary malignant neoplasm of bone; R07.9 Chest pain, unspecified; M54.9 Dorsalgia, unspecified
CPT/HCPCS: 78306; A9561; Q9969

== ENCOUNTER → 2018-01-09 | Outpatient (CLI) | payer MEDICAID ==
--- NOTE | 2018-01-09 14:49 | RADIOLOGY REPORT (SQ) ---
EXAM DESCRIPTION: CT CHEST WITH COMPLETED DATE/TIME: 01/09/2018 2:18 pm REASON FOR STUDY: PROSTATE CA (C61) C61 MALIGNANT NEOPLASM OF PROSTATE COMPARISON: 03/26/2017 TECHNIQUE: CT scan of the chest performed using helical scanning technique with dynamic intravenous contrast injection. Images reviewed with lung, soft tissue and bone windows. Reconstructed coronal and sagittal MPR and MIP images reviewed. All images stored on PACS. All CT scanners at this facility use dose modulation, iterative reconstruction, and/or weight based d osing when appropriate to reduce radiation dose to as low as reasonably achievable (ALARA). [facility]: Dose Right [facility]: CareDose [facility]: Dose Right [facility]: Teradose 4D [facility]: [employer] CONTRAST TYPE AND DOSE: 100 mL Omnipaque 350- low osmolar. RENAL FUNCTION: BUN 18 creatinine 0.85 RADIATION DOSE: . LIMITATIONS: None. FINDINGS: LUNGS AND PLEURA: Pleural/parenchymal scarring in the right lower lobe. This appears to b e stable. No pulmonary masses. HILAR AND MEDIASTINAL STRUCTURES: No identified masses or abnormal nodes. HEART AND VASCULAR STRUCTURES: No aneurysm or dissection. No central pulmonary emboli. No pericardi al effusion. HARDWARE: Sternotomy wires. Pacemaker/ defibrillator. Injection port on the right. UPPER ABDOMEN: See separate report of the CT of the abdomen. THYROID AND OTHER SOFT TISSUES: No masses. No adenopathy. BONES: Extensive osseous metastases. See report for recent bone scan. OTHER: No other significant finding. IMPRESSION: Osseous metastases. No acute findings in the chest. TECHNICAL DOCUMENTATION: JOB ID: [id number] Quality ID # [id number]: Final reports with documentation of one or more dose reduction techniques (e.g., Au tomated exposure control, adjustment of the mA and/or kV according to patient size, use of iterative reconstruction technique) 2010 [employer]- All Rights Reserved Reading location - IP/workstation name: [email or web address]
--- NOTE | 2018-01-09 14:55 | RADIOLOGY REPORT (SQ) ---
EXAM DESCRIPTION: CT ABD/PELVIS WITH IV ORAL COMPLETED DATE/TIME: 01/09/2018 2:18 pm REASON FOR STUDY: PROSTATE CA (C61) C61 MALIGNANT NEOPLASM OF PROSTATE COMPARISON: 09/29/2017 TECHNIQUE: CT scan of the abdomen and pelvis performed using helical scanning technique with dynamic intravenous contrast injection. Oral contrast. Images reviewed with lung, soft tissue, and bone win dows. Reconstructed coronal and sagittal MPR images reviewed. Delayed images for evaluation of the ur inary system also acquired. All images stored on PACS. All CT scanners at this facility use dose modulation, iterative reconstruction, and/or weight based d osing when appropriate to reduce radiation dose to as low as reasonably achievable (ALARA). [facility]: Dose Right [facility]: CareDose [facility]: Dose Right [facility]: Teradose 4D [facility]: [employer] CONTRAST TYPE AND DOSE: contrast/concentration: Isovue 350.00 mg/ml; Total Contrast Delivered: 100.0 ml; Total Saline Delivered: 72.0 ml RENAL FUNCTION: BUN 18 creatinine 0.85 RADIATION DOSE: CT Rad equipment meets quality standard of care and radiation dose reduction techniq ues were employed. CTDIvol: 16.4 - 23.1 mGy. DLP: 3057 mGy-cm.. LIMITATIONS: None. FINDINGS: LOWER CHEST: See separate report of the CT of the chest. LIVER: The liver is diffusely hypoattenuating. No masses. SPLEEN: Normal size. No focal lesions. PANCREAS: No masses. No significant calcifications. No adjacent inflammation or peripancreatic fluid collections. Pancreatic duct not dilated. GALLBLADDER: No identified stones by CT criteria. No inflammatory changes to suggest cholecystitis. ADRENAL GLANDS: No significant masses or asymmetry. RIGHT KIDNEY AND URETER: No solid masses. No significant calcifications. No hydronephrosis or hyd roureter. LEFT KIDNEY AND URETER: No solid masses. No significant calcifications. No hydronephrosis or hydr oureter. AORTA AND VESSELS: No aneurysm. No dissection. Renal arteries, SMA, celiac without stenosis. RETROPERITONEUM: No retroperitoneal adenopathy, hemorrhage or masses. BOWEL AND PERITONEAL CAVITY: No masses or inflammatory changes. No free fluid or peritoneal masses. APPENDIX: Normal. PELVIS: No mass. No free fluid. Normal bladder. ABDOMINAL WALL: No masses. No hernias. BONES: Extensive osseous metastatic disease. Refer to report for recent nuclear medicine bone scan. OTHER: No other significant finding. IMPRESSION: Fatty infiltration of the liver. Osseous metastases. TECHNICAL DOCUMENTATION: JOB ID: [id number] Quality ID # 436: Final reports with documentation of one or more dose reduction techniques (e.g., Au tomated exposure control, adjustment of the mA and/or kV according to patient size, use of iterative reconstruction technique) 2010 [employer]- All Rights Reserved Reading location - IP/workstation name: [email or web address]
== END ==
LOC: RAD 13:18
PROVIDERS: ATTEND Internal Medicine Hematology & Oncology
DX: C61 Malignant neoplasm of prostate (principal); R07.9 Chest pain, unspecified; M54.6 Pain in thoracic spine
CPT/HCPCS: 71260; 74177

== ENCOUNTER → 2018-04-07 | Outpatient (CLI) | payer MEDICAID ==
--- NOTE | 2018-04-07 15:32 | RADIOLOGY REPORT (SQ) ---
EXAM DESCRIPTION: CT THORACIC SPINE WITHOUT COMPLETED DATE/TIME: 04/07/2018 3:21 pm REASON FOR STUDY: C61 MALIGNANT NEOPLASM OF PROSTATE C61 MALIGNANT NEOPLASM OF PROSTATE COMPARISON: 2016 TECHNIQUE: Axial images acquired through the thoracic spine without intravenous contrast. Images re viewed with lung, soft tissue and bone windows. Reconstructed coronal and sagittal MPR images review ed. Images stored on PACS. All CT scanners at this facility use dose modulation, iterative reconstruction, and/or weight based d osing when appropriate to reduce radiation dose to as low as reasonably achievable (ALARA). [facility]: Dose Right [facility]: CareDose [facility]: Dose Right [facility]: Teradose 4D [facility]: [employer] RADIATION DOSE: CT Rad equipment meets quality standard of care and radiation dose reduction techniq ues were employed. CTDIvol: 26.3 mGy. DLP: 1105 mGy-cm. mGy. LIMITATIONS: None. FINDINGS: Multiple mixed sclerotic and lytic lesions in multiple vertebral bodies and ribs consisten t with metastatic disease. No pathologic fracture. No obvious paraspinal mass. No obvious acute di sc herniation. Trace right pleural effusion. IMPRESSION: Bone metastasis. No evidence of pathologic fracture. TECHNICAL DOCUMENTATION: JOB ID: [id number] Quality ID # 436: Final reports with documentation of one or more dose reduction techniques (e.g., Au tomated exposure control, adjustment of the mA and/or kV according to patient size, use of iterative reconstruction technique) 2010 [employer]- All Rights Reserved Reading location - IP/workstation name: [email or web address]
--- NOTE | 2018-04-07 15:37 | RADIOLOGY REPORT (SQ) ---
EXAM DESCRIPTION: CT LUMBAR SPINE WITHOUT COMPLETED DATE/TIME: 04/07/2018 3:21 pm REASON FOR STUDY: C61 MALIGNANT NEOPLASM OF PROSTATE C61 MALIGNANT NEOPLASM OF PROSTATE COMPARISON: 01/09/2018 TECHNIQUE: Axial images acquired through the lumbar spine without intravenous contrast. Images revi ewed with lung, soft tissue and bone windows. Reconstructed coronal and sagittal MPR images reviewed . All images stored on PACS. All CT scanners at this facility use dose modulation, iterative reconstruction, and/or weight based d osing when appropriate to reduce radiation dose to as low as reasonably achievable (ALARA). [facility]: Dose Right [facility]: CareDose [facility]: Dose Right [facility]: Teradose 4D [facility]: [employer] RADIATION DOSE: CT Rad equipment meets quality standard of care and radiation dose reduction techniq ues were employed. CTDIvol: 31.5 mGy. DLP: 1081 mGy-cm. mGy. LIMITATIONS: None. FINDINGS: Known bone metastatic lesions without evidence of pathologic fracture or obvious paraspina l mass. Extensive spondylosis status post multilevel posterior decompression and fusion. No obvious acute disc herniation. IMPRESSION: Bone metastasis. No evidence of pathologic fracture. TECHNICAL DOCUMENTATION: JOB ID: [id number] Quality ID # 436: Final reports with documentation of one or more dose reduction techniques (e.g., Au tomated exposure control, adjustment of the mA and/or kV according to patient size, use of iterative reconstruction technique) 2010 [employer]- All Rights Reserved Reading location - IP/workstation name: [email or web address]
--- NOTE | 2018-04-07 15:38 | RADIOLOGY REPORT (SQ) ---
EXAM DESCRIPTION: CT CERVICAL SPINE WITHOUT COMPLETED DATE/TIME: 04/07/2018 3:21 pm REASON FOR STUDY: C61 MALIGNANT NEOPLASM OF PROSTATE C61 MALIGNANT NEOPLASM OF PROSTATE COMPARISON: 04/12/2015 TECHNIQUE: Axial images acquired through the cervical spine without intravenous contrast. Images re viewed with lung, soft tissue and bone windows. Reconstructed coronal and sagittal MPR images review ed. Images stored on PACS. All CT scanners at this facility use dose modulation, iterative reconstruction, and/or weight based d osing when appropriate to reduce radiation dose to as low as reasonably achievable (ALARA). [facility]: Dose Right [facility]: CareDose [facility]: Dose Right [facility]: Teradose 4D [facility]: [employer] RADIATION DOSE: CT Rad equipment meets quality standard of care and radiation dose reduction techniq ues were employed. CTDIvol: 22.9 mGy. DLP: 615 mGy-cm. mGy. LIMITATIONS: None. FINDINGS: ALIGNMENT: Anatomic. MINERALIZATION: Normal. VERTEBRAL BODIES: No fractures. Sclerotic lesions are seen in the thoracic spine. DISCS: Disc spaces are narrowed at C7 and T1 with marginal osteophytes. Anterior osteophytes are pre sent at C3-4 and C5-6 as well. FACETS, LATERAL MASSES, POSTERIOR ELEMENTS: Mild hypertrophic facet changes in the lower cervical spi ne. HARDWARE: None in the spine. VISUALIZED RIBS: No fractures. LUNG APICES AND SOFT TISSUES: No significant or acute findings. OTHER: No other significant finding. IMPRESSION: No acute findings. Degenerative disc disease, spondylosis, facet arthropathy. Metastas es in the upper thoracic spine. TECHNICAL DOCUMENTATION: JOB ID: [id number] Quality ID # [id number]: Final reports with documentation of one or more dose reduction techniques (e.g., Au tomated exposure control, adjustment of the mA and/or kV according to patient size, use of iterative reconstruction technique) 2010 [employer]- All Rights Reserved Reading location - IP/workstation name: [email or web address]
== END ==
LOC: RAD 16:26
PROVIDERS: ATTEND Internal Medicine Hematology & Oncology
DX: C79.51 Secondary malignant neoplasm of bone (principal); C61 Malignant neoplasm of prostate; M50.323 Other cervical disc degeneration at C6-C7 level; M54.9 Dorsalgia, unspecified
CPT/HCPCS: 72125; 72128; 72131

== ENCOUNTER 2018-04-22 16:19 | Emergency (ER) | payer MEDICAID ==
[2018-04-22] MEDS ORDERED: HYDROMORPHONE HCL INJ/PF 2 MG/ML AMPULE IV ONE (16:37)
[2018-04-22] MEDS ORDERED: DEXAMETHASONE SOD PHOS INJ 10 MG/1 ML VIAL IV ONE (16:49)
--- NOTE | 2018-04-22 16:54 | ER Document Report ---
ED Medical Screen (RME) - General Chief Complaint: Weakness Stated Complaint: LEG WEAKNESS Time Seen by Provider: 04/22/18 16:35 Primary Care Provider: KHRIS CANTRELL MD [Primary Care Provider] - Follow up as needed TRAVEL OUTSIDE OF THE [place] IN LAST 30 DAYS: No - HPI Patient complains to provider of: Lower extremity weakness Notes: 04/22/18 16:50 Patient is a 63-year-old male with a history of metastatic prostate cancer who presents to the emergency room today with concerns of worsening lower extremity weakness with the inability to ambulate, he was sent to the emergency department by his oncologist for further evaluation and treatment I did place a call to patient's oncologist Dr. Cantrell, who can be reached on his cell phone at [phone], he does report that patient's condition today is a start contrast from last week when he was able to stand and ambulate without difficulty, he is concerned about the possibility of a spinal cord compression secondary to spinal metastases, he requests imaging, dexamethasone 10 mg IV and pain medication as necessary, depending on findings patient may need to be transferred to [facility] in [place] if there is evidence of a cord compression with neurosurgery, patient was scheduled to start radiation therapy with Dr. Guzman here in [place], however Dr. Cantrell is willing to accept patient at [facility] if appropriate for further evaluation and treatment Ideally to rule out a cord compression patient should have an MRI of the lumbar spine, however he has a AICD in place, therefore is unable to get an MRI at this time, so I did place a call to the radiologist, Dr Redding, to inquire about the next best test, he reports that a CT scan of the lumbar spine without contrast would be appropriate 04/22/18 16:53 RAPID MEDICAL EVALUATION DISCLOSURE I have seen this patient as part of a Rapid Medical Evaluation and, if applicable, placed any initially appropriate orders. The patient will be seen and fully evaluated, including a full history and physical exam, by a provider (in Main ED or Fast Track) when a room becomes available. - Related Data Allergies/Adverse Reactions: lisinopril Adverse Reaction (Verified 01/02/18 14:38) cough Past Medical History - Social History Frequency of alcohol use: None Drug Abuse: None - Past Medical History Cardiac Medical History: Reports: Hx Congestive Heart Failure, Hx Coronary Artery Disease, Hx Heart Attack, Hx Hypercholesterolemia, Hx Hypertension Pulmonary Medical History: Denies: Hx Asthma, Hx Bronchitis, Hx COPD, Hx Pneumonia Neurological Medical History: Denies: Hx Cerebrovascular Accident, Hx Seizures Renal/ Medical History: Denies: Hx Peritoneal Dialysis Malignancy Medical History: Reports Hx Prostate Cancer Musculoskeltal Medical History: Denies Hx Arthritis Psychiatric Medical History: Reports: Hx Depression Past Surgical History: Reports: Hx Cardiac Surgery - defib, Hx Coronary Artery Bypass Graft, Hx Open Heart Surgery - x 6 v - Immunizations Hx Diphtheria, Pertussis, Tetanus Vaccination: Yes Physical Exam - Vital signs Vitals: Temp Pulse Resp BP Pulse Ox 98.9 F 98 18 170/104 H 99 04/22/18 16:31 04/22/18 16:31 04/22/18 16:04/22/18 16:31 04/22/18 16:31 Course - Vital Signs Vital signs: Temp Pulse Resp BP Pulse Ox 98.9 F 98 18 170/104 H 99 04/22/18 16:31 04/22/18 16:31 04/22/18 16:31 04/22/18 16:31 04/22/18 16:31 Doctor's Discharge - Discharge Referrals: KHRIS CANTRELL MD [Primary Care Provider] - Follow up as needed
--- NOTE | 2018-04-22 17:42 | ER Document Report ---
ED General - General Chief Complaint: Weakness Stated Complaint: LEG WEAKNESS Time Seen by Provider: 04/22/18 16:35 Primary Care Provider: KHRIS CANTRELL MD [ASSOCIATE] - Follow up as needed Mode of Arrival: Wheelchair TRAVEL OUTSIDE OF THE [place] IN LAST 30 DAYS: No - HPI Patient complains to provider of: Lower extremity weakness Onset: Other - 1 month Quality of pain: Achy Severity: Moderate Associated symptoms: None Exacerbated by: Movement, Walking Relieved by: Denies Similar symptoms previously: Yes Recently seen / treated by doctor: Yes Notes: 04/22/18 16:50 Patient is a 63-year-old male with a history of metastatic prostate cancer who presents to the emergency room today with concerns of worsening lower extremity weakness with the inability to ambulate, he was sent to the emergency department by his oncologist for further evaluation and treatment I did place a call to patient's oncologist Dr. Cantrell, who can be reached on his cell phone at [phone], he does report that patient's condition today is a start contrast from last week when he was able to stand and ambulate without difficulty, he is concerned about the possibility of a spinal cord compression secondary to spinal metastases, he requests imaging, dexamethasone 10 mg IV and pain medication as necessary, depending on findings patient may need to be transferred to [facility] in [place] if there is evidence of a cord compression with neurosurgery, patient was scheduled to start radiation therapy with Dr. Guzman here in [place], however Dr. Cantrell is willing to accept patient at [facility] if appropriate for further evaluation and treatment Ideally to rule out a cord compression patient should have an MRI of the lumbar spine, however he has a AICD in place, therefore is unable to get an MRI at this time, so I did place a call to the radiologist, Dr Redding, to inquire about the next best test, he reports that a CT scan of the lumbar spine without contrast would be appropriate - Related Data Allergies/Adverse Reactions: lisinopril Adverse Reaction (Verified 01/02/18 14:38) cough Past Medical History - General Information source: Patient - Social History Smoking Status: Former Smoker Frequency of alcohol use: None Drug Abuse: None Family History: CAD Patient has suicidal ideation: No Patient has homicidal ideation: No - Past Medical History Cardiac Medical History: Reports: Hx Congestive Heart Failure, Hx Coronary Artery Disease, Hx Heart Attack, Hx Hypercholesterolemia, Hx Hypertension Pulmonary Medical History: Denies: Hx Asthma, Hx Bronchitis, Hx COPD, Hx Pneumonia Neurological Medical History: Denies: Hx Cerebrovascular Accident, Hx Seizures Renal/ Medical History: Denies: Hx Peritoneal Dialysis Malignancy Medical History: Reports Hx Prostate Cancer Musculoskeletal Medical History: Denies Hx Arthritis Psychiatric Medical History: Reports: Hx Depression Past Surgical History: Reports: Hx Cardiac Surgery - defib, Hx Coronary Artery Bypass Graft, Hx Open Heart Surgery - x 6 v - Immunizations Hx Diphtheria, Pertussis, Tetanus Vaccination: Yes Review of Systems - Review of Systems Constitutional: No symptoms reported EENT: No symptoms reported Cardiovascular: No symptoms reported Respiratory: No symptoms reported Gastrointestinal: No symptoms reported Genitourinary: No symptoms reported Male Genitourinary: No symptoms reported Musculoskeletal: See HPI Skin: No symptoms reported Hematologic/Lymphatic: No symptoms reported Neurological/Psychological: See HPI -: Yes All other systems reviewed and negative Physical Exam - Vital signs Vitals: Temp Pulse Resp BP Pulse Ox 98.9 F 98 18 170/104 H 99 04/22/18 16:31 04/22/18 16:31 04/22/18 16:31 04/22/18 16:31 04/22/18 16:31 Interpretation: Hypertensive - General General appearance: Alert In distress: None - HEENT Head: Normocephalic, Atraumatic Eyes: Normal Conjunctiva: Normal Extraocular movements intact: Yes Eyelashes: Normal Pupils: PERRL - Respiratory Respiratory status: No respiratory distress Chest status: Nontender Breath sounds: Normal Chest palpation: Normal - Cardiovascular Rhythm: Regular Heart sounds: Normal auscultation Murmur: No - Abdominal Inspection: Normal Distension: No distension Bowel sounds: Normal Tenderness: Nontender Organomegaly: No organomegaly - Back Back: Normal - Extremities General upper extremity: Normal inspection, Nontender, Normal color, Normal ROM, Normal temperature General lower extremity: Normal inspection, Nontender, Normal color, Normal ROM, Normal temperature. No: Vesna's sign - Neurological Neuro grossly intact: Yes Cognition: Normal Orientation: AAOx4 [place]aris Coma Scale Eye Opening: Spontaneous [place] Coma Scale Verbal: Oriented [place] Coma Scale Motor: Obeys Commands Damaris Coma Scale Total: 15 Speech: Normal Motor strength normal: LUE, RUE Sensory: Normal Notes: Patient has good sensation in bilateral lower extremities, he has 4 out of 5 strength bilaterally in lower extremities - Psychological Associated symptoms: Normal affect, Normal mood - Skin Skin Temperature: Warm Skin Moisture: Dry Skin Color: Normal Course - Re-evaluation Re-evalutation: 04/22/18 18:03 When I discussed treatment options with patient and a CT scan of the lumbar spine he reports that he had when here 2 weeks ago and that his symptoms are not any different or worse than they were 2 weeks ago, he reports that he is able to ambulate with a walker and since receiving IV dexamethasone and Dilaudid in the he actually is moving his legs much more and feels quite stronger and better, he also reports that he was at the radiation oncology office today and had a CT scan of the lumbar spine again to get markers for radiation which he believes will start next Saturday, patient was under the impression that he would receive a dose of IV steroids in the emergency department and be discharged home with a prescription for p.o. steroids, therefore I placed another call to his oncologist Dr. Cantrell, who is in agreement with this plan since his symptoms are no worse than 2 weeks ago when he is otherwise neurologically intact with no physical exam findings concerning for cord compression, he recommends I placed patient on dexamethasone 4 mg p.o. every 6 hours, dispense 60 tablets, advised patient to return to the emergency room immediately if his symptoms worsen in any way, otherwise follow-up as directed, this plan was discussed with patient who is in agreement - Vital Signs Vital signs: Temp Pulse Resp BP Pulse Ox 98.2 F 92 20 178/91 H 97 04/22/18 17:50 04/22/18 17:50 04/22/18 17:50 04/22/18 17:50 04/22/18 17:50 Discharge - Discharge Clinical Impression: Lower extremity weakness, Prostate cancer metastatic to bone Condition: Stable Disposition: HOME, SELF-CARE Instructions: Weakness ([facility]) Additional Instructions: Follow-up with your primary care provider, your oncologist and your radiation oncologist within the next 2-3 days. Return to the emergency room immediately if symptoms worsen or any additional concerns. Prescriptions: Dexamethasone [Decadron 4 mg Tablet] 4 mg PO Q6 #60 tablet Referrals: KHRIS CANTRELL MD [ASSOCIATE] - Follow up as needed
[2018-04-22 18:05] VITALS: BP 178/91
== END 2018-04-22 17:53 | disposition home or self-care (01) ==
LOC: ER 16:19
DX: M62.81 Muscle weakness (generalized) (principal); C61 Malignant neoplasm of prostate; C79.51 Secondary malignant neoplasm of bone; Z87.891 Personal history of nicotine dependence; I50.9 Heart failure, unspecified; I11.0 Hypertensive heart disease with heart failure; I25.10 Atherosclerotic heart disease of native coronary artery without angina pectoris
CPT/HCPCS: 99284; 96374; 96375; J1170; J1100

== ENCOUNTER 2018-06-23 10:52 | Inpatient (IN) | payer MEDICAID ==
--- NOTE | 2018-06-23 11:47 | RADIOLOGY REPORT (SQ) ---
EXAM DESCRIPTION: CHEST SINGLE VIEW COMPLETED DATE/TIME: 06/23/2018 11:18 am REASON FOR STUDY: bed 7 sepsis protocol COMPARISON: Two-view chest 05/09/2016 AP chest 01/04/2018 CT chest 01/09/2018 EXAM PARAMETERS: NUMBER OF VIEWS: One view. TECHNIQUE: Single frontal radiographic view of the chest acquired. RADIATION DOSE: NA LIMITATIONS: None. FINDINGS: LUNGS AND PLEURA: Minimal right lateral costophrenic sulcus chronic pleural thickening. No acute infiltrates. No pleural effusion. No pneumothorax. MEDIASTINUM AND HILAR STRUCTURES: No masses. Contour normal. HEART AND VASCULAR STRUCTURES: Old sternotomy for CABG. No cardiomegaly BONES: No acute findings. HARDWARE: Right permanent central line tip superior vena cava. Left-sided single lead pacemaker OTHER: No other significant finding. IMPRESSION: Chronic right lateral costophrenic sulcus pleural thickening. No acute findings TECHNICAL DOCUMENTATION: JOB ID: [id number] [employer]- All Rights Reserved Reading location - IP/workstation name: [email or web address]
[2018-06-23 11:53] LABS: HEMATOCRIT 27.2 % (37.9-51.0); HEMOGLOBIN 9.2 g/dL (13.5-17.0); MEAN CORPUSCULAR HEMOGLOBIN 30.7 pg (27.0-33.4); MEAN CORPUSCULAR HGB CONC 33.8 g/dL (32.0-36.0); MEAN CORPUSCULAR VOLUME 91 fl (80-97); PLATELET COUNT 199 10^3/uL (150-450); RED CELL DISTRIBUTION WIDTH 18.7 % (11.5-14.0); WHITE BLOOD COUNT 7.7 10^3/uL (4.0-10.5)
[2018-06-23 11:53] LABS: VENOUS BLOOD BASE EXCESS 6.1 mmol/L; VENOUS BLOOD HCO3 30.6 mmol/L (20-32); VENOUS BLOOD PCO2 43.2 mmHg (35-63); VENOUS BLOOD PH 7.47 (7.30-7.42)
[2018-06-23] MEDS ORDERED: IPRATROPIUM/ALBUTEROL 0.5-2.5 MG/3 ML AMPUL NEB ONE (11:56)
[2018-06-23 11:57] LABS: INTERNATIONAL RATION (INR) 1.09; PROTHROMBIN TIME 14.7 SEC (11.4-15.4)
[2018-06-23] MEDS ORDERED: MORPHINE SULFATE 10 MG/ML INJ IV ONE (12:07)
[2018-06-23] MEDS ORDERED: ACETAMINOPHEN 325 MG TABLET PO ONE (12:11)
[2018-06-23 12:19] LABS: ALANINE AMINOTRANSFERASE 28 U/L (21-72); ALBUMIN 2.8 g/dL (3.5-5.0); ALKALINE PHOSPHATASE 370 U/L (38-126); ANION GAP 8 (5-19); ASPARTATE AMINO TRANSFERASE 20 U/L (17-59); BILIRUBIN,DIRECT 0.6 mg/dL (0.0-0.4); BILIRUBIN,TOTAL 1.1 mg/dL (0.2-1.3); BLOOD UREA NITROGEN 15 mg/dL (7-20); CALCIUM 8.5 mg/dL (8.4-10.2); CARBON DIOXIDE 30 mmol/L (22-30); CHLORIDE 98 mmol/L (98-107); GLUCOSE 126 mg/dL (75-110); POTASSIUM 4.4 mmol/L (3.6-5.0); SODIUM 135.5 mmol/L (137-145); TOTAL PROTEIN 5.5 g/dL (6.3-8.2)
[2018-06-23 12:19] LABS: APPEARANCE,URINE TURBID; BILIRUBIN,URINE SMALL (NEGATIVE); COLOR,URINE AMBER; GLUCOSE, URINE NEGATIVE (NEGATIVE); KETONES,URINE NEGATIVE (NEGATIVE); LEUKOCYTE ESTERASE,URINE MODERATE (NEGATIVE); NITRITE,URINE NEGATIVE (NEGATIVE); PROTEIN,URINE 100 mg/dL (NEGATIVE); URINE SPECIFIC GRAVITY 1.027
[2018-06-23 12:19] LABS: ABSOLUTE LYMPHOCYTES# (MANUAL) 2.1 10^3/uL (0.5-4.7); ABSOLUTE MONOCYTES # (MANUAL) 0.5 10^3/uL (0.1-1.4); ABSOLUTE NEUTROPHILS# (MANUAL) 4.9 10^3/uL (1.7-8.2); BASOPHILS % (MANUAL) 1 % (0-2); EOSINOPHILS % (MANUAL) 2 % (0-6); LYMPHOCYTES % (MANUAL) 27 % (13-45); METAMYELOCYTES % (MANUAL) 1 % (0); MONOCYTES % (MANUAL) 7 % (3-13); NUCLEATED RED BLOOD CELLS 3 /100 WBC (0); SEGMENTED NEUTROPHILS % (MAN) 62 % (42-78); TOTAL CELLS COUNTED 100
[2018-06-23 12:20] LABS: ANISOCYTOSIS 2+; OVALOCYTES 1+; PLATELET COMMENT ADEQUATE; POIKILOCYTOSIS 1+; TEAR DROP CELLS SLIGHT; TOXIC GRANULATION 2+
--- NOTE | 2018-06-23 12:49 | EKG REPORT ---
SEVERITY:- ABNORMAL ECG - SINUS TACHYCARDIA NONSPECIFIC T ABNORMALITIES, LATERAL LEADS LATE PRECORDIAL TRANSITION ANTERIOR LEADS. : Confirmed by: Elliott Dao MD 23-Jun-2018 12:48:54
[2018-06-23] MEDS ORDERED: LEVOFLOXACIN 750 MG/D5W RTU 750 MG/150 ML RTUPB IV ONE (13:09)
--- NOTE | 2018-06-23 13:24 | ER Document Report ---
Entered by DENISE IRAHETA SCRIBE 06/23/18 1208 Acting as scribe for:ADILSON FREY MD ED General - General Stated Complaint: DIFFICULTY BREATHING Time Seen by Provider: 06/23/18 11:47 Primary Care Provider: MIRANDA LOU MD [Primary Care Provider] - Follow up as needed Mode of Arrival: Ambulatory Information source: Patient Notes: Patient is a 63 year old paraplegic male with Stage IV prostate cancer with mets to bone, CAD, and a history of 6 vessel bypass presents to the emergency department accompanied by complaining of shortness of breath. states the patient developed shortness of breath this morning which she describes as shallow breathing. She states he also developed a non productive cough approximately 1 week ago. states the patient is not normally on oxygen at home. EMS reports an oxygen saturation rate of 85-90% on room air prior to arrival to the ED. Patient's PCP is Dr. Lou. TRAVEL OUTSIDE OF THE [place] IN LAST 30 DAYS: No - Related Data Allergies/Adverse Reactions: lisinopril Adverse Reaction (Verified 01/02/18 14:38) cough Past Medical History - General Information source: Patient, Relative - Social History Smoking Status: Former Smoker Cigarette use (# per day): No Chew tobacco use (# tins/day): No Smoking Education Provided: No Frequency of alcohol use: None Family History: CAD - Past Medical History Cardiac Medical History: Reports: Hx Congestive Heart Failure, Hx Coronary Artery Disease, Hx Heart Attack, Hx Hypercholesterolemia, Hx Hypertension Malignancy Medical History: Reports Hx Prostate Cancer - w/mets to bone. Tumor encroached on spinal cord subsequent paraplegia -2019 Psychiatric Medical History: Reports: Hx Depression Past Surgical History: Reports: Hx Cardiac Surgery - defib, Hx Coronary Artery Bypass Graft, Hx Open Heart Surgery - x 6 v - Immunizations Hx Diphtheria, Pertussis, Tetanus Vaccination: Yes Review of Systems - Review of Systems Constitutional: No symptoms reported EENT: No symptoms reported Cardiovascular: No symptoms reported Respiratory: See HPI Gastrointestinal: No symptoms reported Genitourinary: No symptoms reported Male Genitourinary: No symptoms reported Musculoskeletal: No symptoms reported Skin: No symptoms reported Hematologic/Lymphatic: No symptoms reported Neurological/Psychological: No symptoms reported -: Yes All other systems reviewed and negative Physical Exam - Vital signs Vitals: Temp Resp BP Pulse Ox 100.8 F H 19 122/80 98 06/23/18 11:03 06/23/18 11:03 06/23/18 11:03 06/23/18 11:03 - Notes Notes: GENERAL: Alert, paraplegic, interacts well. No acute distress. HEAD: Normocephalic, atraumatic. EYES: Pupils equal, round, and reactive to light. Extraocular movements intact. ENT: Oral mucosa moist, tongue midline. NECK: Full range of motion. Supple. Trachea midline. LUNGS: Actively receiving breathing treatment. Wheezes and rhonchi. No respiratory distress. HEART: Regular rate and rhythm. No murmurs, gallops, or rubs. ABDOMEN: Soft, obese, non-tender. Non-distended. Bowel sounds present in all 4 quadrants. No guarding, rigidity, or rebound. EXTREMITIES: Paraplegic. Moves BUE spontaneously. Edema in the BLE. NEUROLOGICAL: Alert and oriented x3. Normal speech. PSYCH: Normal affect, normal mood. SKIN: Warm, diaphoretic, normal turgor. No rashes or lesions noted. Course - Vital Signs Vital signs: Temp Pulse Resp BP Pulse Ox 100.8 F H 19 122/80 97 06/23/18 11:03 06/23/18 11:03 06/23/18 11:03 06/23/18 11:12 - Laboratory Result Diagrams: 06/23/18 10:58 06/23/18 11:32 Laboratory results interpreted by me: 06/23/18 06/23/18 06/23/18 10:58 11:32 11:32 RBC 3.00 L Hgb 9.2 L Hct 27.2 L RDW 18.7 H Metamyelocytes % 1 H VBG pH Sodium 135.5 L Glucose 126 H Lactic Acid 2.5 H Direct Bilirubin 0.6 H Alkaline Phosphatase 370 H Total Protein 5.5 L Albumin 2.8 L Urine Protein Urine Blood Urine Bilirubin Urine Urobilinogen Ur Leukocyte Esterase 06/23/18 06/23/18 11:32 12:02 RBC Hgb Hct RDW Metamyelocytes % VBG pH 7.47 H Sodium Glucose Lactic Acid Direct Bilirubin Alkaline Phosphatase Total Protein Albumin Urine Protein 100 H Urine Blood SMALL H Urine Bilirubin SMALL H Urine Urobilinogen 4.0 H Ur Leukocyte Esterase MODERATE H - Diagnostic Test Radiology reviewed: Image reviewed, Reports reviewed - Chest x-ray shows chronic changes with nothing acute. - EKG Interpretation by Me EKG shows normal: Sinus rhythm, [place], Intervals, QRS Complexes. abnormal: ST-T Waves - Nonspecific lateral T abnormalities Rate: Tachycardia - 132 - Consults Dr. Garnett Time consulted: 13:15 Consulted provider: will come to ER - Telemetry admission Critical Care Note - Critical Care Note Total time excluding time spent on procedures (mins): 35 Discharge - Discharge Clinical Impression: Prostate cancer metastatic to bone, Paraplegia, Tachycardia, COPD with acute exacerbation, Hypoxia Urinary tract infection Qualifiers: Urinary tract infection type: site unspecified Hematuria presence: with hematuria Qualified Code(s): N39.0 - Urinary tract infection, site not specified; R31.9 - Hematuria, unspecified Fever Qualifiers: Fever type: unspecified Qualified Code(s): R50.9 - Fever, unspecified Condition: Stable Disposition: ADMITTED INPATIENT Admitting Provider: Hospitalist Unit Admitted: Telemetry Referrals: MIRANDA LOU MD [Primary Care Provider] - Follow up as needed I personally performed the services described in the documentation, reviewed and edited the documentation which was dictated to the scribe in my presence, and it accurately records my words and actions.
[2018-06-23] MEDS ORDERED: (PENDING PHARMACY ID) (Oxycodone Hcl/Acetaminophen [Percocet 10-325 Mg Tablet] 1 TAB) PO PRN (16:30)
[2018-06-23] MEDS: OXYCODONE-ACETAMINOPHEN 5-325 MG TABLET PO PRN (16:53)
[2018-06-23] MEDS ORDERED: NORMAL SALINE 1000 ML 1,000 ML IV PRN (18:30)
[2018-06-23] MEDS: PREDNISONE 10 MG TABLET PO SCH (18:31)
--- NOTE | 2018-06-23 18:53 | PDOC H&P ---
History of Present Illness Admission Date/PCP: 06/23/18 13:29 MIRANDA LOU MD Patient complains of: fever, SOB History of Present Illness: JEANNINE VALLECILLO is a 63 year old male with a a Stage IV prostate cancer with spinal metastases, paraplegia from the spinal mets on Xtandi, CAD with prior CABG and asthma who was brought in from [facility] due to fever, cough and increasing SOB. His sister who's an RN is on bedside says that he had fever last Saturday but says no high temperature was actually reported. This was associated with minimally productive cough and wheezing. He was also noted to be more irritable last night. He as seen by EMS this morning and per ER provider was reportedly having wheezing and was saturating at 85% on room air. In the ER, he was reported to be tachypneic, have bilateral wheezing and rhonchi and was given breathing treatments. Hi sister says he does not have COPD but has asthma. Upon my encounter, he is saturating at 94% on nasal cannula. He is oriented x 4 and says his breathing has slightly improved with the breathing treatments. Work-up was remarkable for elevated lactic acid and pyuria. He is not able to report lower urinary tract symptoms as he says he barely can feel if he is urinating. Past Medical History Cardiac Medical History: Reports: Congestive Heart Failure, Coronary Artery Disease, Myocardial Infarction, Hyperlipidema, Hypertension Pulmonary Medical History: Denies: Asthma, Bronchitis, Chronic Obstructive Pulmonary Disease (COPD), Pneumonia Neurological Medical History: Denies: Seizures Musculoskeltal Medical History: Denies: Arthritis Psychiatric Medical History: Reports: Depression Hematology: Denies: Anemia Past Surgical History Past Surgical History: Reports: Coronary Artery Bypass Graft Social History Smoking Status: Former Smoker Frequency of Alcohol Use: None Hx Recreational Drug Use: No Drugs: None Family History Family History: CAD Parental Family History Reviewed: Yes - no premature CAD Children Family History Reviewed: No Sibling(s) Family History Reviewed.: No Medication/Allergy Home Medications: Fluticasone/Salmeterol [Advair 250-50 Diskus 14 Dose/Diskus] 1 puff IH Q12 01/02/18 Furosemide [Lasix 40 mg Tablet] 40 mg PO DAILY 01/02/18 Nebivolol HCl [Bystolic 2.5 mg Tablet] 2.5 mg PO DAILY 01/02/18 Oxycodone HCl/Acetaminophen [Percocet 10-325 mg Tablet] 1 tab PO Q8HP PRN 01/02/18 Valsartan [Diovan 80 mg Tablet] 80 mg PO DAILY 01/02/18 Bisacodyl [Dulcolax 10 mg Supp.rect] 10 mg OR DAILYP PRN 06/23/18 Dexamethasone [Decadron 4 Mg Tablet] 4 mg PO Q8 06/23/18 Enzalutamide [Xtandi] 160 mg PO DAILY 06/23/18 Gabapentin [Neurontin 300 mg Capsule] 900 mg PO Q8 06/23/18 Loperamide HCl [Imodium A-D] 2 mg PO PRN PRN 06/23/18 Morphine Sulfate [Morphine Ir 30 mg Tablet] 30 mg PO Q8HP PRN 06/23/18 Ondansetron [Zofran Odt 4 mg Tablet] 4 mg PO Q8HP PRN 06/23/18 Pantoprazole Sodium [Protonix [address] Tablet] 40 mg PO QAM 06/23/18 Polyethylene Glycol 3350 [Miralax Powder 17 gm/Packet] 1 packet PO DAILY 06/23/18 Sennosides [Senna] 8.6 mg PO QPM 06/23/18 Simvastatin [Zocor 10 mg Tablet] 10 mg PO QHS 06/23/18 Allergies/Adverse Reactions: lisinopril Adverse Reaction (Verified 01/02/18 14:38) cough Review of Systems All systems: reviewed and no additional remarkable complaints except as stated - as mentioned in HPI Physical Exam Vital Signs: Temp Pulse Resp BP Pulse Ox 98.4 F 19 122/80 97 06/23/18 14:04 06/23/18 11:03 06/23/18 11:03 06/23/18 11:12 Intake & Output 06/22/18 06/23/18 06/24/18 06:59 06:59 06:59 Weight 225 lb 15.581 oz General appearance: PRESENT: no acute distress, well-developed, well-nourished Head exam: PRESENT: atraumatic, normocephalic Eye exam: PRESENT: conjunctiva pink, EOMI, PERRLA. ABSENT: scleral icterus Ear exam: PRESENT: normal external ear exam Mouth exam: PRESENT: moist, tongue midline Neck exam: ABSENT: carotid bruit, JVD, lymphadenopathy, thyromegaly Respiratory exam: PRESENT: rhonchi. ABSENT: rales, wheezes Cardiovascular exam: PRESENT: RRR. ABSENT: diastolic murmur, rubs, systolic murmur Pulses: PRESENT: normal dorsalis pedis pul GI/Abdominal exam: PRESENT: normal bowel sounds, soft. ABSENT: distended, guarding, mass, organolmegaly, rebound, tenderness Rectal exam: PRESENT: deferred Neurological exam: PRESENT: alert, awake, oriented to person, oriented to place, oriented to time, oriented to situation, CN II-XII grossly intact, motor sensory deficit - 3/5 motor strenght on both LEs Results Laboratory Results: 06/23/18 10:58 06/23/18 11:32 06/23/18 06/23/18 06/23/18 10:58 11:32 11:32 WBC 7.7 RBC 3.00 L Hgb 9.2 L Hct 27.2 L MCV 91 MCH 30.7 MCHC 33.8 RDW 18.7 H Plt Count 199 Seg Neutrophils % Not Reportable Lymphocytes % Not Reportable Monocytes % Not Reportable Eosinophils % Not Reportable Basophils % Not Reportable Absolute Neutrophils Not Reportable Absolute Lymphocytes Not Reportable Absolute Monocytes Not Reportable Absolute Eosinophils Not Reportable Absolute Basophils Not Reportable VBG pH VBG pCO2 VBG HCO3 VBG Base Excess Sodium 135.5 L Potassium 4.4 Chloride 98 Carbon Dioxide 30 Anion Gap 8 BUN 15 Creatinine 0.54 Est GFR ( Amer) > 60 Est GFR (Non-Af Amer) > 60 Glucose 126 H Lactic Acid 2.5 H Calcium 8.5 Total Bilirubin 1.1 AST 20 ALT 28 Alkaline Phosphatase 370 H Total Protein 5.5 L Albumin 2.8 L Urine Color Urine Appearance Urine pH Ur Specific Hay Urine Protein Urine Glucose (UA) Urine Ketones Urine Blood Urine Nitrite Ur Leukocyte Esterase Urine WBC (Auto) Urine RBC (Auto) 06/23/18 06/23/18 11:32 12:02 WBC RBC Hgb Hct MCV MCH MCHC RDW Plt Count Seg Neutrophils % Lymphocytes % Monocytes % Eosinophils % Basophils % Absolute Neutrophils Absolute Lymphocytes Absolute Monocytes Absolute Eosinophils Absolute Basophils VBG pH 7.47 H VBG pCO2 43.2 VBG HCO3 30.6 VBG Base Excess 6.1 Sodium Potassium Chloride Carbon Dioxide Anion Gap BUN Creatinine Est GFR ( Amer) Est GFR (Non-Af Amer) Glucose Lactic Acid Calcium Total Bilirubin AST ALT Alkaline Phosphatase Total Protein Albumin Urine Color NESSA Urine Appearance TURBID Urine pH 5.0 Ur Specific Hay 1.027 Urine Protein 100 H Urine Glucose (UA) NEGATIVE Urine Ketones NEGATIVE Urine Blood SMALL H Urine Nitrite NEGATIVE Ur Leukocyte Esterase MODERATE H Urine WBC (Auto) >182 Urine RBC (Auto) 36 06/23/18 11:32 Troponin I < 0.012 Impressions: Chest X-Ray 06/23/18 10:59 IMPRESSION: Chronic right lateral costophrenic sulcus pleural thickening. No acute findings Assessment and Plan - Diagnosis (1) Acute respiratory failure with hypoxia Is this a current diagnosis for this admission?: Yes Plan: Possibly from asthma exacerbation. He has clear breath sounds upon encounter after breathing treatments. He has metastatic prostate CA and paraplegia. Will assess for PE due to his degree of hypoxia initially in the setting of being at risk for VTE and will roder a VQ scan. Continue breathing treatments. Start prednisone. (2) Asthma exacerbation Is this a current diagnosis for this admission?: Yes Plan: As per number 1. (3) Sepsis Is this a current diagnosis for this admission?: Yes Plan: Possible sepsis form UTI. Lacitc acid is elevated. Will start patient on IV fluids. Start Rocephin. Blood and urine cultures. Will cycle lactic acid. (4) UTI (urinary tract infection) Is this a current diagnosis for this admission?: Yes Plan: As per number 3. (5) Prostate cancer metastatic to bone Is this a current diagnosis for this admission?: Yes Plan: Patient has stage 4 prostate cancer with spinal metastases. He is on Xtandi. - Time Time Spent with patient: 25-34 minutes
--- NOTE | 2018-06-23 18:58 | ADVANCED CARE ---
- Diagnosis (1) Acute respiratory failure with hypoxia Diagnosis Current: Yes (2) Asthma exacerbation Diagnosis Current: Yes (3) Sepsis Diagnosis Current: Yes (4) UTI (urinary tract infection) Diagnosis Current: Yes (5) Prostate cancer metastatic to bone Diagnosis Current: Yes Resuscitation Status: Full Code Discussion: Discussed with patient and sister who is on bedside. He is aware of his metastatic prostate CA. Both expressed that he remains a Full Code at this time and prefers full resuscitation including chest compressions, defibrillation and mechanical ventilation. He and his sister expressed that his surrogate decision maker is his son but that his sister is also involved in medical decision making as she is a nurse.
[2018-06-23] MEDS: GABAPENTIN 300 MG CAPSULE PO SCH (21:06)
[2018-06-23] MEDS: OXYCODONE HCL IR 5 MG TABLET PO PRN (21:06)
[2018-06-23] MEDS: SIMVASTATIN 10 MG TABLET PO SCH (21:08)
[2018-06-23] MEDS ORDERED: HEPARIN SOD (PORCINE) 5,000 UNIT/ML 1 ML SYRINGE SUBCUT SCH (22:00)
[2018-06-24] MEDS: ALBUTEROL SULFATE 0.083% NEB 2.5 MG/3 ML AMPUL NEB PRN ×2 (03:21→21:04)
[2018-06-24] MEDS: GABAPENTIN 300 MG CAPSULE PO SCH ×3 (07:13→21:22)
[2018-06-24] MEDS: OXYCODONE HCL IR 5 MG TABLET PO PRN ×2 (10:31→20:12)
[2018-06-24] MEDS: PREDNISONE 10 MG TABLET PO SCH ×2 (10:32→17:39)
[2018-06-24] MEDS: OXYCODONE-ACETAMINOPHEN 5-325 MG TABLET PO PRN (10:32)
[2018-06-24] MEDS: CEFTRIAXONE 1 GM/D5W RTU 1 GM/50 ML RTUPB IV SCH (10:33)
[2018-06-24] MEDS: ENOXAPARIN SODIUM INJ 40 MG/0.4 ML DISP.SYRIN SUBCUT SCH (10:33)
[2018-06-24] MEDS: NEBIVOLOL HCL 2.5 MG TABLET PO SCH (10:34)
--- NOTE | 2018-06-24 12:59 | RADIOLOGY REPORT (SQ) ---
EXAM DESCRIPTION: NM LUNG VENT/PERF SCAN COMPLETED DATE/TIME: 06/24/2018 12:17 pm REASON FOR STUDY: hypoxia,metastatic prostate CA COMPARISON: None. RADIONUCLIDE AND DOSE: 5.04 millicuries TC-99m MAA Intravenous 30.8 millicuries TC-99m DTPA Inhaled aerosol TECHNIQUE: Three views of the lungs acquired post ventilation of DTPA aerosol. Three views of the l ungs acquired following injection of MAA. LIMITATIONS: Limited images acquired due to lack of patient tolerance. Ventilation images consisten t only anterior and posterior views. Perfusion images consist of only anterior, posterior, and LPO a nd GOMEZ views. FINDINGS: VENTILATION: Multiple subsegmental ventilation defects. PERFUSION: Multiple subsegmental perfusion defects, generally matching ventilation defects. OTHER: No other significant finding. IMPRESSION: LIMITED STUDY. THERE ARE MULTIPLE MATCHING SUBSEGMENTAL VENTILATION AND PERFUSION DEFEC TS. HOWEVER, A LIMITED SET OF IMAGES WERE ACQUIRED. FINDINGS ARE INDETERMINATE. IF THERE IS STRONG CLINICAL SUSPICION, THEN MAY CONSIDER PULMONARY CTA. MAY ALSO CONSIDER VENOUS DOPPLER OF THE LOWER EXTREMITIES TO DETERMINE IF THERE IS ANY EVIDENCE OF UNDERLYING DEEP VENOUS THROMBOSIS. TECHNICAL DOCUMENTATION: JOB ID: [id number] [employer]- All Rights Reserved Reading location - IP/workstation name: [email or web address]
[2018-06-24] MEDS ORDERED: DIPHENHYDRAMINE HCL 25 MG CAPSULE PO PRN (13:34)
[2018-06-24] MEDS ORDERED: DIPHENHYDRAMINE HCL 50 MG/ML VIAL IV ONE (14:30)
[2018-06-24] MEDS ORDERED: NORMAL SALINE 1000 ML 1,000 ML IV PRN (14:52)
[2018-06-24 15:40] LABS: HEMATOCRIT 21.6 % (37.9-51.0); MEAN CORPUSCULAR HEMOGLOBIN 31.1 pg (27.0-33.4); MEAN CORPUSCULAR VOLUME 92 fl (80-97); PLATELET COUNT 146 10^3/uL (150-450); RED BLOOD COUNT 2.36 10^6/uL (4.35-5.55); WHITE BLOOD COUNT 6.4 10^3/uL (4.0-10.5)
[2018-06-24 16:03] LABS: BLOOD UREA NITROGEN 11 mg/dL (7-20); CALCIUM 8.2 mg/dL (8.4-10.2); GLUCOSE 144 mg/dL (75-110)
[2018-06-24 16:06] LABS: ABSOLUTE LYMPHOCYTES# (MANUAL) 1.7 10^3/uL (0.5-4.7); ABSOLUTE MONOCYTES # (MANUAL) 0.4 10^3/uL (0.1-1.4); BASOPHILS % (MANUAL) 1 % (0-2); EOSINOPHILS % (MANUAL) 2 % (0-6); LYMPHOCYTES % (MANUAL) 27 % (13-45); MONOCYTES % (MANUAL) 7 % (3-13); SEGMENTED NEUTROPHILS % (MAN) 63 % (42-78); TOTAL CELLS COUNTED 100
[2018-06-24 16:08] LABS: CARBON DIOXIDE 27 mmol/L (22-30); CHLORIDE 104 mmol/L (98-107); SODIUM 135.2 mmol/L (137-145)
[2018-06-24 16:09] LABS: ANISOCYTOSIS 2+; HYPOCHROMASIA SLIGHT; POIKILOCYTOSIS SLIGHT; TOXIC GRANULATION SLIGHT
[2018-06-24 16:10] LABS: PLATELET COMMENT DECREASED
[2018-06-24 16:12] LABS: HEMOGLOBIN 7.3 g/dL (13.5-17.0)
[2018-06-24 16:23] LABS: ANION GAP 4 (5-19)
[2018-06-24] MEDS: SIMVASTATIN 10 MG TABLET PO SCH (21:22)
[2018-06-25] MEDS: OXYCODONE-ACETAMINOPHEN 5-325 MG TABLET PO PRN ×2 (04:21→11:43)
[2018-06-25] MEDS: ALBUTEROL SULFATE 0.083% NEB 2.5 MG/3 ML AMPUL NEB PRN ×2 (04:38→17:20)
[2018-06-25] MEDS: GABAPENTIN 300 MG CAPSULE PO SCH ×2 (05:50→14:14)
[2018-06-25] MEDS: OXYCODONE HCL IR 5 MG TABLET PO PRN ×2 (05:52→11:44)
[2018-06-25 06:40] LABS: ANION GAP 5 (5-19); BLOOD UREA NITROGEN 9 mg/dL (7-20); CARBON DIOXIDE 27 mmol/L (22-30); CHLORIDE 103 mmol/L (98-107); GLUCOSE 90 mg/dL (75-110); POTASSIUM 3.8 mmol/L (3.6-5.0); SODIUM 135.1 mmol/L (137-145)
[2018-06-25 07:02] LABS: HEMATOCRIT 21.5 % (37.9-51.0); MEAN CORPUSCULAR HEMOGLOBIN 30.7 pg (27.0-33.4); MEAN CORPUSCULAR HGB CONC 33.6 g/dL (32.0-36.0); MEAN CORPUSCULAR VOLUME 91 fl (80-97); RED BLOOD COUNT 2.35 10^6/uL (4.35-5.55); RED CELL DISTRIBUTION WIDTH 18.6 % (11.5-14.0); WHITE BLOOD COUNT 6.2 10^3/uL (4.0-10.5)
[2018-06-25 07:34] LABS: ABSOLUTE LYMPHOCYTES# (MANUAL) 1.5 10^3/uL (0.5-4.7); ABSOLUTE MONOCYTES # (MANUAL) 0.4 10^3/uL (0.1-1.4); ABSOLUTE NEUTROPHILS# (MANUAL) 4.2 10^3/uL (1.7-8.2); BAND NEUTROPHILS % (MANUAL) 2 % (3-5); BASOPHILS % (MANUAL) 1 % (0-2); EOSINOPHILS % (MANUAL) 2 % (0-6); LYMPHOCYTES % (MANUAL) 24 % (13-45); METAMYELOCYTES % (MANUAL) 2 % (0); MONOCYTES % (MANUAL) 6 % (3-13); SEGMENTED NEUTROPHILS % (MAN) 63 % (42-78); TOTAL CELLS COUNTED 100
[2018-06-25 07:36] LABS: ANISOCYTOSIS 2+; OVALOCYTES SLIGHT; PLATELET CLUMPS PRESENT; PLATELET COMMENT ADEQUATE; PLATELET COUNT 150 10^3/uL (150-450); POIKILOCYTOSIS SLIGHT; POLYCHROMASIA 1+; TEAR DROP CELLS SLIGHT; TOXIC GRANULATION 1+
[2018-06-25 07:54] LABS: HEMOGLOBIN 7.2 g/dL (13.5-17.0)
[2018-06-25] MEDS: ENOXAPARIN SODIUM INJ 40 MG/0.4 ML DISP.SYRIN SUBCUT SCH (11:08)
[2018-06-25] MEDS: NEBIVOLOL HCL 2.5 MG TABLET PO SCH (11:08)
[2018-06-25] MEDS: PREDNISONE 10 MG TABLET PO SCH ×2 (11:08→17:11)
[2018-06-25] MEDS: CEFTRIAXONE 1 GM/D5W RTU 1 GM/50 ML RTUPB IV SCH (11:09)
[2018-06-25] MEDS ORDERED: TRAZODONE HCL 50 MG TABLET PO PRN (11:48)
[2018-06-25] MEDS ORDERED: NORMAL SALINE 250 ML IV PRN ×3 (11:49→15:51)
[2018-06-25] MEDS ORDERED: OXYCODONE-ACETAMINOPHEN 5-325 MG TABLET PO PRN (11:49)
[2018-06-25] MEDS ORDERED: OXYCODONE HCL IR 5 MG TABLET PO PRN ×2 (11:49→20:41)
[2018-06-25] MEDS ORDERED: NORMAL SALINE 1000 ML 1,000 ML IV PRN (11:50)
[2018-06-25] MEDS: LEVOFLOXACIN 750 MG/D5W RTU 750 MG/150 ML RTUPB IV SCH (13:06)
--- NOTE | 2018-06-25 13:55 | RADIOLOGY REPORT (SQ) ---
EXAM DESCRIPTION: CHEST SINGLE VIEW COMPLETED DATE/TIME: 06/25/2018 1:44 pm REASON FOR STUDY: Cough/CHF COMPARISON: None. EXAM PARAMETERS: NUMBER OF VIEWS: One view. TECHNIQUE: Single frontal radiographic view of the chest acquired. RADIATION DOSE: NA LIMITATIONS: None. FINDINGS: LUNGS AND PLEURA: Mildly increased ill-defined right basilar patchy opacities. Stable rig ht basilar pleural thickening versus small effusion. No dense consolidation. No pneumothorax. MEDIASTINUM AND HILAR STRUCTURES: No masses. Contour normal. HEART AND VASCULAR STRUCTURES: Normal size of the cardiac silhouette. BONES: Median sternotomy changes with fractured median sternotomy wires. No acute findings HARDWARE: Left-sided single lead defibrillator with tip overlying right ventricle. Right-sided chest port with catheter tip at SVC. OTHER: Right-sided IMPRESSION: Mild patchy right basilar opacities possibly infection or asymmetric edema. Unchanged right basilar pleural thickening. TECHNICAL DOCUMENTATION: JOB ID: [id number] [email or web address] Rights Reserved Reading location - IP/workstation name: [email or web address]
[2018-06-25] MEDS: GUAIFENESIN/D-METHORPHAN (200-20 MG) SYRUP 10 ML PO PRN (14:11)
[2018-06-25] MEDS ORDERED: MAG HYDROX/AL HYDROX/SIMETH SUSP 30 ML UDCUP PO PRN (14:33)
[2018-06-25] MEDS: PANTOPRAZOLE SODIUM 40 MG TABLET.DR PO SCH (15:34)
[2018-06-25] MEDS ORDERED: FUROSEMIDE INJ/PF 20 MG/2 ML SDV IV PRN (15:51)
[2018-06-25] MEDS: DOCUSATE SODIUM 100 MG CAPSULE PO SCH (17:11)
[2018-06-25] MEDS: ONDANSETRON HCL INJ/PF 4 MG/2 ML SDV IV PRN (19:48)
--- NOTE | 2018-06-25 20:54 | PDOC PROGRESS REPORT ---
Subjective Progress Note for:: 06/24/18 Subjective:: The patient complains of pain. He appears flushed. Reason For Visit: ACUTE RESPIRATORY FAILURE,PROSTATE CA, UTI Physical Exam Vital Signs: Temp Pulse Resp BP Pulse Ox 100.2 F 82 16 149/76 H 96 06/24/18 20:00 06/24/18 21:06 06/24/18 21:06 06/24/18 20:00 06/24/18 21:06 Intake & Output 06/23/18 06/24/18 06/25/18 06:59 06:59 06:59 Intake Total 150 620 Balance 150 620 Weight 104.1 kg 104.1 kg General appearance: PRESENT: cooperative, mild distress, obese, well-developed Head exam: PRESENT: atraumatic, normocephalic Eye exam: PRESENT: conjunctiva pale Ear exam: PRESENT: normal external ear exam Respiratory exam: PRESENT: clear to auscultation ana, symmetrical, unlabored. ABSENT: accessory muscle use, rales, rhonchi, wheezes Cardiovascular exam: PRESENT: RRR, +S1, +S2 GI/Abdominal exam: PRESENT: normal bowel sounds, soft. ABSENT: tenderness Rectal exam: PRESENT: deferred Extremities exam: PRESENT: pedal edema Neurological exam: PRESENT: alert, awake, oriented to person, oriented to place, oriented to situation Psychiatric exam: PRESENT: flat affect. ABSENT: agitated, anxious Focused psych exam: ABSENT: delusional, restlessness Results Laboratory Results: 06/24/18 15:10 06/24/18 15:10 06/23/18 06/24/18 06/24/18 23:02 15:10 15:10 WBC 6.4 RBC 2.36 L Hgb 7.3 L Hct 21.6 L MCV 92 MCH 31.1 MCHC 34.0 RDW 19.0 H Plt Count 146 L Seg Neutrophils % Not Reportable Lymphocytes % Not Reportable Monocytes % Not Reportable Eosinophils % Not Reportable Basophils % Not Reportable Absolute Neutrophils Not Reportable Absolute Lymphocytes Not Reportable Absolute Monocytes Not Reportable Absolute Eosinophils Not Reportable Absolute Basophils Not Reportable Sodium 135.2 L Potassium 4.0 Chloride 104 Carbon Dioxide 27 Anion Gap 4 L BUN 11 Creatinine 0.41 L Est GFR ( Amer) > 60 Est GFR (Non-Af Amer) > 60 Glucose 144 H Lactic Acid 2.9 H Calcium 8.2 L 04/02/19 15:10 WBC RBC Hgb Hct MCV MCH MCHC RDW Plt Count Seg Neutrophils % Lymphocytes % Monocytes % Eosinophils % Basophils % Absolute Neutrophils Absolute Lymphocytes Absolute Monocytes Absolute Eosinophils Absolute Basophils Sodium Potassium Chloride Carbon Dioxide Anion Gap BUN Creatinine Est GFR ( Amer) Est GFR (Non-Af Amer) Glucose Lactic Acid 2.9 H Calcium 06/23/18 11:32 Troponin I < 0.012 Impressions: Lung Scan-VQ NM 06/23/18 00:00 IMPRESSION: LIMITED STUDY. THERE ARE MULTIPLE MATCHING SUBSEGMENTAL VENTILATION AND PERFUSION DEFECTS. HOWEVER, A LIMITED SET OF IMAGES WERE ACQUI RED. FINDINGS ARE INDETERMINATE. IF THERE IS STRONG CLINICAL SUSPICION, THEN MAY CONSIDER PULMONARY CTA. MAY ALSO CONSIDER VENOUS DOPPLER OF THE LOWER EXTREMITIES TO DETERMINE IF THERE IS ANY EVIDENCE OF UNDERLYING DEEP VENOUS THROMBOSIS. Chest X-Ray 06/23/18 10:59 IMPRESSION: Chronic right lateral costophrenic sulcus pleural thickening. No acute findings Assessment and Plan - Diagnosis (1) Sepsis Qualifiers: Sepsis type: Streptococcus, other Qualified Code(s): A40.8 - Other streptococcal sepsis Is this a current diagnosis for this admission?: Yes Plan: Etiology of sepsis is a urinary infection. The urine culture is positive for gram-positive cocci and gram-negative bacilli. Await final culture results to modify antibiotic therapy. The patient has received IV fluids. He is normotensive. He is now afebrile. He did require oxygen supplementation for hypoxia and his fever has resolved. His lactic acid, however, is still elevated. (2) Acute respiratory failure with hypoxia Is this a current diagnosis for this admission?: Yes Plan: The patient does have a history of asthma. He does require oxygen suppleme ntation. He is currently on 2 L nasal cannula. We will try and wean him to room air. He has a history of asthma and has been on high-dose narcotic analgesia for his metastatic bone pain. The patient also has a history of congestive heart failure. He does not appear to be in acute failure at this time. With aggressive IV fluids will need to monitor closely. (3) Acute cystitis with positive culture Is this a current diagnosis for this admission?: Yes Plan: Gram-positive cocci and gram-negative bacilli identified. Await final culture results. (4) Prostate cancer metastatic to bone Is this a current diagnosis for this admission?: Yes Plan: The patient's sister reports that he is on higher dose of medication at the residential facility. It is possible that the medication may have contributed to hypoxia however he is having pain. I will increase his medication but not quite to the point/level that he was on prior. (5) Paraplegia Is this a current diagnosis for this admission?: Yes Plan: Secondary to spine metastases. Unfortunate this is a chronic condition. The sister reports that the patient is in a fair amount of denial despite discussions with oncology. (6) Pain of metastatic malignancy Is this a current diagnosis for this admission?: Yes Plan: As noted above he is on reduced pain medication at this time. He is still complaining of pain. I will increase his medication slowly. - Time Time Spent with patient: 15-24 minutes Medications reviewed and adjusted accordingly: Yes Anticipated discharge: SNF
--- NOTE | 2018-06-25 21:12 | PDOC PROGRESS REPORT ---
Subjective Progress Note for:: 06/25/18 Subjective:: The patient is still complaining of pain. He also complains of his cough. Reason For Visit: ACUTE RESPIRATORY FAILURE,PROSTATE CA, UTI Physical Exam Vital Signs: Temp Pulse Resp BP Pulse Ox 100.1 F 99 18 148/75 H 98 06/25/18 11:29 06/25/18 11:29 06/25/18 11:29 06/25/18 11:29 06/25/18 11:29 Intake & Output 06/24/18 06/25/18 06/26/18 06:59 06:59 06:59 Intake Total 150 2120 Balance 150 2120 Weight 104.1 kg 107.1 kg General appearance: PRESENT: mild distress, obese, well-developed Respiratory exam: PRESENT: rales - Right base, symmetrical. ABSENT: accessory muscle use, rhonchi, tachypnea, wheezes Cardiovascular exam: PRESENT: RRR, +S1, +S2 GI/Abdominal exam: PRESENT: normal bowel sounds, soft. ABSENT: tenderness Rectal exam: PRESENT: deferred Extremities exam: PRESENT: pedal edema Neurological exam: PRESENT: alert - The patient did keep his eyes closed for most of today's encounter. Verbal interaction was limited., awake, oriented to person, oriented to place, oriented to time, oriented to situation Psychiatric exam: PRESENT: flat affect. ABSENT: agitated, anxious Focused psych exam: ABSENT: delusional, restlessness Results Laboratory Results: 06/25/18 06:42 06/25/18 06:05 06/24/18 06/24/18 06/24/18 15:10 15:10 15:10 WBC 6.4 RBC 2.36 L Hgb 7.3 L Hct 21.6 L MCV 92 MCH 31.1 MCHC 34.0 RDW 19.0 H Plt Count 146 L Seg Neutrophils % Not Reportable Lymphocytes % Not Reportable Monocytes % Not Reportable Eosinophils % Not Reportable Basophils % Not Reportable Absolute Neutrophils Not Reportable Absolute Lymphocytes Not Reportable Absolute Monocytes Not Reportable Absolute Eosinophils Not Reportable Absolute Basophils Not Reportable Sodium 135.2 L Potassium 4.0 Chloride 104 Carbon Dioxide 27 Anion Gap 4 L BUN 11 Creatinine 0.41 L Est GFR ( Amer) > 60 Est GFR (Non-Af Amer) > 60 Glucose 144 H Lactic Acid 2.9 H Calcium 8.2 L 06/25/18 06/25/18 06/25/18 06:05 06:05 06:42 WBC 6.2 RBC 2.35 L Hgb 7.2 L Hct 21.5 L MCV 91 MCH 30.7 MCHC 33.6 RDW 18.6 H Plt Count 150 Seg Neutrophils % Not Reportable Lymphocytes % Not Reportable Monocytes % Not Reportable Eosinophils % Not Reportable Basophils % Not Reportable Absolute Neutrophils Not Reportable Absolute Lymphocytes Not Reportable Absolute Monocytes Not Reportable Absolute Eosinophils Not Reportable Absolute Basophils Not Reportable Sodium 135.1 L Potassium 3.8 Chloride 103 Carbon Dioxide 27 Anion Gap 5 BUN 9 Creatinine 0.40 L Est GFR ( Amer) > 60 Est GFR (Non-Af Amer) > 60 Glucose 90 Lactic Acid 1.3 Calcium 8.0 L 06/23/18 12:02 Catheterized Urine Urine Culture - Final Klebsiella Pneumoniae Enterococcus Faecalis(Group D) 06/23/18 11:32 Troponin I < 0.012 Impressions: Lung Scan-VQ NM 06/23/18 00:00 IMPRESSION: LIMITED STUDY. THERE ARE MULTIPLE MATCHING SUBSEGMENTAL VENTILATION AND PERFUSION DEFECTS. HOWEVER, A LIMITED SET OF IMAGES WERE ACQUIRED. FINDINGS ARE INDETERMINATE. IF THERE IS STRONG CLINICAL SUSPICION, THEN MAY CONSIDER PULMONARY CTA. MAY ALSO CONSIDER VENOUS DOPPLER OF THE LOWER EXTREMITIES TO DETERMINE IF THERE IS ANY EVIDENCE OF UNDERLYING DEEP VENOUS THROMBOSIS. Chest X-Ray 06/23/18 10:59 IMPRESSION: Chronic right lateral costophrenic sulcus pleural thickening. No acute findings Assessment and Plan - Diagnosis (1) Sepsis Qualifiers: Sepsis type: Streptococcus, other Qualified Code(s): A40.8 - Other streptococcal sepsis Is this a current diagnosis for this admission?: Yes Plan: With ongoing fluid resuscitation the patient's lactic acid is finally back to normal. Unfortunately I believe he has developed some congestive failure. See discussion below. (2) Acute respiratory failure with hypoxia Is this a current diagnosis for this admission?: Yes Plan: Likely related to congestive failure. The patient is quite anemic. He declined transfusion last night but has accepted transfusion today. I did try to expl ain, as did his sister, that with his severe anemia it is easy for fluid to build up in the lungs especially with his cardiac history. He continues to require oxygen supplementation. (3) Acute cystitis with positive culture Is this a current diagnosis for this admission?: Yes Plan: Enterococcus and Klebsiella were isolated. Levofloxacin is effective against both. Antibiotic therapy is now levofloxacin. (4) Acute congestive heart failure Qualifiers: Heart failure type: unspecified Qualified Code(s): I50.9 - Heart failure, unspecified Is this a current diagnosis for this admission?: Yes Plan: The patient has a history of coronary artery disease and myocardial infarction. There is no record of an echocardiogram in our computer system. As noted above I discussed with the patient his risk factors for failure. He is getting transfused which should help. I will give furosemide between the units of blood. I will also consider resuming scheduled diuretic therapy. (5) Anemia Qualifiers: Anemia type: other cause Is this a current diagnosis for this admission?: Yes Plan: Likely a combination related to his chronic illness, metastatic malignancy and hemodilution. Today, with the help of his sister's encouragement, he has elected to receive 2 units of packed red blood cells. This should make him feel better as well as improve his oncotic pressure and help resolve his failure. (6) Hypoxia Is this a current diagnosis for this admission?: Yes Plan: Still requiring oxygen supplementation. Continue to wean to room air. (7) Pain of metastatic malignancy Is this a current diagnosis for this admission?: Yes Plan: I will slowly continue to increase narcotic analgesia to try to achieve better pain control without compromising respiratory status. (8) Paraplegia Is this a current diagnosis for this admission?: Yes Plan: I did review the fact that his paraplegia will not go away. His oncologist has told him that. This is a factor in discussing the advance care planning issues. - Time Time Spent with patient: 15-24 minutes Medications reviewed and adjusted accordingly: Yes Anticipated discharge: SNF
--- NOTE | 2018-06-25 21:15 | ADVANCED CARE ---
Attendance: Earlier in the day I started discussing status and prognosis with the patient. That discussion continued with the patient's son, who is the power of associate attorney, and several times during the day with the patient's sister. Resuscitation Status: Full Code Discussion: The patient's sister is an oncology nurse. The patient is in denial. Whenever we begin discussing the subject of CODE STATUS and prognosis if he tends to be asleep. His sister states that this is an ongoing problem. I have ordered palliative care consult and they will be meeting with the family and the patient tomorrow. The patient's oncologist has tried to be realistic with his prognosis and despite this the patient for a while felt that he would be getting better and leaving the assisted and possibly even walking again. My discussion with the patient's sister we will try and focus on having the patient understand that there can be some quality of life but that there is only so much improvement that he will be able to obtain. We also would like to have him consider changing his CODE STATUS to DO NOT RESUSCITATE. The patient's sister is certainly supportive of our efforts. Care Planning Goals: Initially to change CODE STATUS to DNR. Consider antidepressant therapy as a possibility to help with quality of life. Document(s) Completed: No documents completed at this time. The patient's son is his power of associate attorney. He will be present for the palliative care consult tomorrow. Time Spent: 25 minutes
[2018-06-26] MEDS: GABAPENTIN 300 MG CAPSULE PO SCH ×4 (01:07→21:28)
[2018-06-26] MEDS: SIMVASTATIN 10 MG TABLET PO SCH ×2 (01:07→21:28)
[2018-06-26] MEDS: GUAIFENESIN/D-METHORPHAN (200-20 MG) SYRUP 10 ML PO PRN ×4 (03:04→20:00)
[2018-06-26] MEDS: MORPHINE SULFATE SR 15 MG TABLET PO SCH ×3 (03:08→21:28)
[2018-06-26] MEDS: ALBUTEROL SULFATE 0.083% NEB 2.5 MG/3 ML AMPUL NEB PRN ×2 (03:23→13:44)
[2018-06-26] MEDS: PANTOPRAZOLE SODIUM 40 MG TABLET.DR PO SCH (06:09)
[2018-06-26 07:40] LABS: HEMATOCRIT 28.1 % (37.9-51.0); MEAN CORPUSCULAR HEMOGLOBIN 30.5 pg (27.0-33.4); MEAN CORPUSCULAR HGB CONC 34.1 g/dL (32.0-36.0); MEAN CORPUSCULAR VOLUME 90 fl (80-97); PLATELET COUNT 143 10^3/uL (150-450); RED BLOOD COUNT 3.14 10^6/uL (4.35-5.55); RED CELL DISTRIBUTION WIDTH 17.1 % (11.5-14.0); WHITE BLOOD COUNT 6.4 10^3/uL (4.0-10.5)
[2018-06-26 07:43] LABS: HEMOGLOBIN 9.6 g/dL (13.5-17.0)
[2018-06-26 07:55] LABS: BLOOD UREA NITROGEN 9 mg/dL (7-20); CALCIUM 8.3 mg/dL (8.4-10.2); GLUCOSE 80 mg/dL (75-110)
[2018-06-26 08:00] LABS: CARBON DIOXIDE 25 mmol/L (22-30); CHLORIDE 106 mmol/L (98-107); SODIUM 135.1 mmol/L (137-145)
[2018-06-26 08:03] LABS: ANION GAP 4 (5-19)
[2018-06-26 08:04] LABS: ABSOLUTE LYMPHOCYTES# (MANUAL) 1.7 10^3/uL (0.5-4.7); ABSOLUTE MONOCYTES # (MANUAL) 0.4 10^3/uL (0.1-1.4); BAND NEUTROPHILS % (MANUAL) 3 % (3-5); BASOPHILS % (MANUAL) 0 % (0-2); EOSINOPHILS % (MANUAL) 4 % (0-6); LYMPHOCYTES % (MANUAL) 21 % (13-45); METAMYELOCYTES % (MANUAL) 1 % (0); MONOCYTES % (MANUAL) 7 % (3-13); SEGMENTED NEUTROPHILS % (MAN) 58 % (42-78); TOTAL CELLS COUNTED 100
[2018-06-26 08:05] LABS: ANISOCYTOSIS 1+; POIKILOCYTOSIS SLIGHT; POLYCHROMASIA 1+
[2018-06-26 08:06] LABS: OVALOCYTES SLIGHT; PLATELET COMMENT DECREASED; TEAR DROP CELLS SLIGHT
[2018-06-26] MEDS: PREDNISONE 10 MG TABLET PO SCH ×2 (09:23→17:18)
[2018-06-26] MEDS: DOCUSATE SODIUM 100 MG CAPSULE PO SCH ×2 (09:23→17:18)
[2018-06-26] MEDS: ENOXAPARIN SODIUM INJ 40 MG/0.4 ML DISP.SYRIN SUBCUT SCH (09:25)
[2018-06-26] MEDS: NEBIVOLOL HCL 2.5 MG TABLET PO SCH (09:26)
[2018-06-26] MEDS: LEVOFLOXACIN 750 MG/D5W RTU 750 MG/150 ML RTUPB IV SCH (11:50)
[2018-06-26] MEDS: OXYCODONE HCL IR 5 MG TABLET PO PRN ×2 (13:28→19:59)
[2018-06-26] MEDS: ONDANSETRON HCL INJ/PF 4 MG/2 ML SDV IV PRN (20:26)
[2018-06-27] MEDS: ALBUTEROL SULFATE 0.083% NEB 2.5 MG/3 ML AMPUL NEB PRN (00:20)
[2018-06-27] MEDS: PANTOPRAZOLE SODIUM 40 MG TABLET.DR PO SCH (05:01)
[2018-06-27] MEDS: GABAPENTIN 300 MG CAPSULE PO SCH ×3 (05:01→22:11)
[2018-06-27 06:59] LABS: HEMATOCRIT 28.5 % (37.9-51.0); HEMOGLOBIN 9.9 g/dL (13.5-17.0); MEAN CORPUSCULAR HEMOGLOBIN 31.1 pg (27.0-33.4); MEAN CORPUSCULAR HGB CONC 34.7 g/dL (32.0-36.0); MEAN CORPUSCULAR VOLUME 90 fl (80-97); RED BLOOD COUNT 3.17 10^6/uL (4.35-5.55); RED CELL DISTRIBUTION WIDTH 17.6 % (11.5-14.0); WHITE BLOOD COUNT 5.6 10^3/uL (4.0-10.5)
[2018-06-27 07:15] LABS: BLOOD UREA NITROGEN 9 mg/dL (7-20); CALCIUM 8.5 mg/dL (8.4-10.2); CARBON DIOXIDE 28 mmol/L (22-30); CHLORIDE 102 mmol/L (98-107); GLUCOSE 94 mg/dL (75-110); SODIUM 135.2 mmol/L (137-145)
[2018-06-27 07:16] LABS: ANION GAP 5 (5-19)
[2018-06-27 07:56] LABS: ABSOLUTE LYMPHOCYTES# (MANUAL) 1.5 10^3/uL (0.5-4.7); ABSOLUTE MONOCYTES # (MANUAL) 0.5 10^3/uL (0.1-1.4); ABSOLUTE NEUTROPHILS# (MANUAL) 3.6 10^3/uL (1.7-8.2); BAND NEUTROPHILS % (MANUAL) 5 % (3-5); BASOPHILS % (MANUAL) 0 % (0-2); EOSINOPHILS % (MANUAL) 0 % (0-6); LYMPHOCYTES % (MANUAL) 23 % (13-45); METAMYELOCYTES % (MANUAL) 2 % (0); MONOCYTES % (MANUAL) 9 % (3-13); SEGMENTED NEUTROPHILS % (MAN) 58 % (42-78); TOTAL CELLS COUNTED 100
[2018-06-27 07:58] LABS: ANISOCYTOSIS 1+; POIKILOCYTOSIS SLIGHT; POLYCHROMASIA 1+; TOXIC GRANULATION SLIGHT; TOXIC VACUOLATION PRESENT
[2018-06-27 07:59] LABS: OVALOCYTES SLIGHT; PLATELET CLUMPS PRESENT; PLATELET COMMENT DECREASED; PLATELET COUNT 134 10^3/uL (150-450); TEAR DROP CELLS SLIGHT
[2018-06-27] MEDS: ENOXAPARIN SODIUM INJ 40 MG/0.4 ML DISP.SYRIN SUBCUT SCH (09:44)
[2018-06-27] MEDS: NEBIVOLOL HCL 2.5 MG TABLET PO SCH (09:49)
[2018-06-27] MEDS: DOCUSATE SODIUM 100 MG CAPSULE PO SCH ×2 (09:49→17:46)
[2018-06-27] MEDS: PREDNISONE 10 MG TABLET PO SCH ×2 (09:49→17:46)
[2018-06-27] MEDS: MORPHINE SULFATE SR 15 MG TABLET PO SCH ×2 (09:50→22:11)
[2018-06-27] MEDS ORDERED: (PENDING PHARMACY ID) (Enzalutamide [Xtandi] 160 MG) PO SCH (10:00)
[2018-06-27] MEDS: LEVOFLOXACIN 750 MG/D5W RTU 750 MG/150 ML RTUPB IV SCH (12:32)
[2018-06-27] MEDS: ONDANSETRON HCL INJ/PF 4 MG/2 ML SDV IV PRN (15:49)
[2018-06-27] MEDS: SIMVASTATIN 10 MG TABLET PO SCH (22:11)
[2018-06-28] MEDS: OXYCODONE HCL IR 5 MG TABLET PO PRN (00:50)
[2018-06-28] MEDS: PANTOPRAZOLE SODIUM 40 MG TABLET.DR PO SCH (05:29)
[2018-06-28] MEDS: GABAPENTIN 300 MG CAPSULE PO SCH ×3 (05:29→22:03)
[2018-06-28] MEDS: MORPHINE SULFATE SR 15 MG TABLET PO SCH ×2 (09:43→22:03)
[2018-06-28] MEDS: PREDNISONE 10 MG TABLET PO SCH ×2 (09:43→17:01)
[2018-06-28] MEDS: DOCUSATE SODIUM 100 MG CAPSULE PO SCH ×2 (09:44→17:01)
[2018-06-28] MEDS: NEBIVOLOL HCL 2.5 MG TABLET PO SCH (09:44)
[2018-06-28] MEDS: ENOXAPARIN SODIUM INJ 40 MG/0.4 ML DISP.SYRIN SUBCUT SCH (09:46)
[2018-06-28] MEDS: GUAIFENESIN/D-METHORPHAN (200-20 MG) SYRUP 10 ML PO PRN (09:53)
[2018-06-28] MEDS ORDERED: FLUTICASONE/VILANTEROL 200-25 MCG/DOSE IH ONE (12:15)
[2018-06-28] MEDS ORDERED: TIOTROPIUM BROMIDE DPI 5 CAP/KIT (18 MCG/CAP) IH ONE (12:17)
[2018-06-28] MEDS ORDERED: FUROSEMIDE INJ/PF 20 MG/2 ML SDV IV ONE (12:18)
[2018-06-28] MEDS: LEVOFLOXACIN 750 MG/D5W RTU 750 MG/150 ML RTUPB IV SCH (12:48)
[2018-06-28] MEDS: TIOTROPIUM BROMIDE DPI 5 CAP/KIT (18 MCG/CAP) IH SCH (15:05)
[2018-06-28] MEDS: FLUTICASONE/VILANTEROL 200-25 MCG/DOSE IH SCH (15:05)
--- NOTE | 2018-06-28 15:10 | PDOC PROGRESS REPORT ---
Subjective Progress Note for:: 06/26/18 Subjective:: The patient is resting in bed. Palliative care met with the patient earlier today. Plans are in the works for palliative care at home. The patient still has discomfort. He still appears quite depressed. His appetite is been poor. Breathing is occasionally congested. Reason For Visit: ACUTE RESPIRATORY FAILURE,PROSTATE CA, UTI Physical Exam Vital Signs: Temp Pulse Resp BP Pulse Ox 98.8 F 87 18 124/74 97 06/26/18 19:35 06/26/18 19:35 06/26/18 19:35 06/26/18 19:35 06/26/18 19:35 Intake & Output 06/25/18 06/26/18 06/27/18 06:59 06:59 06:59 Intake Total 2120 1426 750 Balance 2120 1426 750 Weight 107.1 kg 106.2 kg General appearance: PRESENT: cooperative - Not very talkative today., mild distress, obese, well-developed Head exam: PRESENT: atraumatic, normocephalic Ear exam: PRESENT: normal external ear exam Respiratory exam: PRESENT: clear to auscultation ana, symmetrical. ABSENT: accessory muscle use, rales, rhonchi, tachypnea, wheezes Cardiovascular exam: PRESENT: RRR, +S1, +S2 GI/Abdominal exam: PRESENT: normal bowel sounds, soft. ABSENT: distended, tenderness Rectal exam: PRESENT: deferred Extremities exam: PRESENT: pedal edema Neurological exam: PRESENT: alert, awake, oriented to person, oriented to place, oriented to time, oriented to situation, CN II-XII grossly intact Psychiatric exam: PRESENT: flat affect. ABSENT: agitated, anxious Focused psych exam: ABSENT: delusional, restlessness Results Laboratory Results: 06/26/18 06:50 06/26/18 06:50 06/25/18 06/26/18 06/26/18 12:37 06:50 06:50 WBC 6.4 RBC 3.14 L Hgb 9.6 L D Hct 28.1 L MCV 90 MCH 30.5 MCHC 34.1 RDW 17.1 H Plt Count 143 L Seg Neutrophils % Not Reportable Lymphocytes % Not Reportable Monocytes % Not Reportable Eosinophils % Not Reportable Basophils % Not Reportable Absolute Neutrophils Not Reportable Absolute Lymphocytes Not Reportable Absolute Monocytes Not Reportable Absolute Eosinophils Not Reportable Absolute Basophils Not Reportable Sodium 135.1 L Potassium 4.0 Chloride 106 Carbon Dioxide 25 Anion Gap 4 L BUN 9 Creatinine 0.37 L Est GFR ( Amer) > 60 Est GFR (Non-Af Amer) > 60 Glucose 80 Calcium 8.3 L Prostate Specific Ag Blood Type A POSITIVE Antibody Screen NEGATIVE 06/26/18 06:50 WBC RBC Hgb Hct MCV MCH MCHC RDW Plt Count Seg Neutrophils % Lymphocytes % Monocytes % Eosinophils % Basophils % Absolute Neutrophils Absolute Lymphocytes Absolute Monocytes Absolute Eosinophils Absolute Basophils Sodium Potassium Chloride Carbon Dioxide Anion Gap BUN Creatinine Est GFR ( Amer) Est GFR (Non-Af Amer) Glucose Calcium Prostate Specific Ag 1.200 Blood Type Antibody Screen 06/23/18 13:18 Sputum Gram Stain - Final 06/23/18 13:18 Sputum Sputum Culture - Final Haemophilus Influenzae Normal Rachel 06/23/18 11:32 Troponin I < 0.012 Impressions: Lung Scan-VQ NM 06/23/18 00:00 IMPRESSION: LIMITED STUDY. THERE ARE MULTIPLE MATCHING SUBSEGMENTAL VENTILATION AND PERFUSION DEFECTS. HOWEVER, A LIMITED SET OF IMAGES WERE ACQUIRED. FINDINGS ARE INDETERMINATE. IF THERE IS STRONG CLINICAL SUSPICION, THEN MAY CONSIDER PULMONARY CTA. MAY ALSO CONSIDER VENOUS DOPPLER OF THE LOWER EXTREMITIES TO DETERMINE IF THERE IS ANY EVIDENCE OF UNDERLYING DEEP VENOUS THROMBOSIS. Chest X-Ray 06/25/18 00:00 IMPRESSION: Mild patchy right basilar opacities possibly infection or asymmetric edema. Unchanged right basilar pleural thickening. Assessment and Plan - Diagnosis (1) Sepsis Qualifiers: Sepsis type: Streptococcus, other Qualified Code(s): A40.8 - Other streptococcal sepsis Is this a current diagnosis for this admission?: Yes Plan: Sepsis resolved (2) Acute respiratory failure with hypoxia Is this a current diagnosis for this admission?: Yes Plan: Continue oxygen supplementation. Nebulizer treatments available. (3) Acute cystitis with positive culture Is this a current diagnosis for this admission?: Yes Plan: Continue levofloxacin therapy. (4) Acute congestive heart failure Qualifiers: Heart failure type: unspecified Qualified Code(s): I50.9 - Heart failure, unspecified Is this a current diagnosis for this admission?: Yes Plan: The patient is at risk for failure with the ongoing positive fluid balance. He will decrease IV fluids. His intake has been quite poor so he still may need gentle hydration. If necessary we can administer diuretic therapy. (5) Anemia Qualifiers: Anemia type: other cause Is this a current diagnosis for this admission?: Yes Plan: Anemia is likely secondary to his underlying chronic metastatic malignancy. He received 2 units of packed red blood cells and now his hemoglobin appears to be stable. (6) Hypoxia Is this a current diagnosis for this admission?: Yes Plan: Continue oxygen supplementation. Attempt to wean to room air. (7) Pain of metastatic malignancy Is this a current diagnosis for this admission?: Yes Plan: He is on scheduled long-acting morphine as well as the oxycodone for as needed pain. He also takes gabapentin. Pain appears to be reasonably controlled. (8) Paraplegia Is this a current diagnosis for this admission?: Yes Plan: Secondary to spinal metastases. Per the patient's sister does not appear that the weakness will resolve as it is due to metastatic disease. - Time Time Spent with patient: 15-24 minutes Medications reviewed and adjusted accordingly: Yes
--- NOTE | 2018-06-28 15:16 | PDOC PROGRESS REPORT ---
Subjective Progress Note for:: 06/27/18 Subjective:: The patient has a very depressed affect today. He was not making good eye contact. The patient's sister is worried about depression. Reason For Visit: ACUTE RESPIRATORY FAILURE,PROSTATE CA, UTI Physical Exam Vital Signs: Temp Pulse Resp BP Pulse Ox 100.3 F 92 18 160/93 H 94 06/28/18 11:20 06/28/18 14:00 06/28/18 12:18 06/28/18 11:20 06/28/18 12:18 Intake & Output 06/27/18 06/28/18 06/29/18 06:59 06:59 06:59 Intake Total 1070 595 150 Balance 1070 595 150 Weight 109 kg 108.9 kg General appearance: PRESENT: mild distress, obese, well-developed Respiratory exam: PRESENT: symmetrical, other - Congested breath sounds. ABSENT: accessory muscle use, stridor, tachypnea, wheezes Cardiovascular exam: PRESENT: RRR, +S1, +S2 GI/Abdominal exam: PRESENT: normal bowel sounds, soft. ABSENT: distended, guarding, tenderness Rectal exam: PRESENT: deferred Musculoskeletal exam: ABSENT: ambulatory Neurological exam: PRESENT: alert, awake, oriented to person, oriented to place, oriented to time, oriented to situation, CN II-XII grossly intact Psychiatric exam: PRESENT: depressed, flat affect. ABSENT: agitated, anxious Focused psych exam: ABSENT: delusional, restlessness Results Laboratory Results: 06/27/18 06:33 06/27/18 06:33 06/23/18 13:59 Blood Blood Culture - Final NO GROWTH IN 5 DAYS 06/23/18 11:32 Blood Blood Culture - Final NO GROWTH IN 5 DAYS 06/23/18 11:32 Troponin I < 0.012 Impressions: Lung Scan-VQ NM 06/23/18 00:00 IMPRESSION: LIMITED STUDY. THERE ARE MULTIPLE MATCHING SUBSEGMENTAL VENTILATION AND PERFUSION DEFECTS. HOWEVER, A LIMITED SET OF IMAGES WERE ACQUIRED. FINDINGS ARE INDETERMINATE. IF THERE IS STRONG CLINICAL SUSPICION, THEN MAY CONSIDER PULMONARY CTA. MAY ALSO CONSIDER VENOUS DOPPLER OF THE LOWER EXTREMITIES TO DETERMINE IF THERE IS ANY EVIDENCE OF UNDERLYING DEEP VENOUS THROMBOSIS. Chest X-Ray 06/25/18 00:00 IMPRESSION: Mild patchy right basilar opacities possibly infection or asymmetric edema. Unchanged right basilar pleural thickening. Assessment and Plan - Diagnosis (1) Sepsis Qualifiers: Sepsis type: Streptococcus, other Qualified Code(s): A40.8 - Other streptococcal sepsis Is this a current diagnosis for this admission?: Yes Plan: Resolved (2) Acute respiratory failure with hypoxia Is this a current diagnosis for this admission?: Yes Plan: Continue nebulizer treatments and wean to room air if possible (3) Acute cystitis with positive culture Is this a current diagnosis for this admission?: Yes Plan: Complete levofloxacin as ordered (4) Acute congestive heart failure Qualifiers: Heart failure type: unspecified Qualified Code(s): I50.9 - Heart failure, unspecified Is this a current diagnosis for this admission?: Yes Plan: Still with positive fluid balance. Chest x-ray did not suggest failure or pulmonary edema. If the patient worsens then I will administer furosemide. (5) Anemia Qualifiers: Anemia type: other cause Is this a current diagnosis for this admission?: Yes Plan: Hemoglobin is actually slowly improving. (6) Hypoxia Is this a current diagnosis for this admission?: Yes Plan: Continue to wean to room air if possible. In addition to heart failure and a history of COPD the patient is obese and could be experiencing obesity hypoventilation. (7) Pain of metastatic malignancy Is this a current diagnosis for this admission?: Yes Plan: Continue current pain regimen. (8) Paraplegia Is this a current diagnosis for this admission?: Yes Plan: Secondary to spinal metastases. Per the patient's sister does not appear that the weakness will resolve as it is due to metastatic disease. (9) Obesity, Class II, BMI 35-39.9 Is this a current diagnosis for this admission?: Yes Plan: As noted above the obesity could be contributing to a hypoventilation syndrome. His weight also limits some of his bed mobility. - Time Time Spent with patient: 15-24 minutes Medications reviewed and adjusted accordingly: Yes
--- NOTE | 2018-06-28 15:25 | PDOC PROGRESS REPORT ---
Subjective Progress Note for:: 06/28/18 Subjective:: The patient is a little more interactive this morning. His cough is more congested. He states that he is coughing up clear phlegm. Reason For Visit: ACUTE RESPIRATORY FAILURE,PROSTATE CA, UTI Physical Exam Vital Signs: Temp Pulse Resp BP Pulse Ox 100.3 F 92 18 160/93 H 94 06/28/18 11:20 06/28/18 14:00 06/28/18 12:18 06/28/18 11:20 06/28/18 12:18 Intake & Output 06/27/18 06/28/18 06/29/18 06:59 06:59 06:59 Intake Total 1070 595 150 Balance 1070 595 150 Weight 109 kg 108.9 kg General appearance: PRESENT: no acute distress, cooperative, obese, well- developed Head exam: PRESENT: atraumatic, normocephalic Respiratory exam: PRESENT: symmetrical, unlabored. ABSENT: accessory muscle use, clear to auscultation ana - Definite congested breath sounds bilaterally, rhonchi, stridor, wheezes Cardiovascular exam: PRESENT: RRR, +S1, +S2 GI/Abdominal exam: PRESENT: normal bowel sounds, soft. ABSENT: distended, tenderness Rectal exam: PRESENT: deferred Neurological exam: PRESENT: alert, awake, oriented to person, oriented to place, oriented to time, oriented to situation, CN II-XII grossly intact Psychiatric exam: PRESENT: depressed, flat affect. ABSENT: agitated, anxious Focused psych exam: ABSENT: delusional, restlessness Results Laboratory Results: 06/27/18 06:33 06/27/18 06:33 06/23/18 13:59 Blood Blood Culture - Final NO GROWTH IN 5 DAYS 06/23/18 11:32 Blood Blood Culture - Final NO GROWTH IN 5 DAYS 06/23/18 11:32 Troponin I < 0.012 Impressions: Lung Scan-VQ NM 06/23/18 00:00 IMPRESSION: LIMITED STUDY. THERE ARE MULTIPLE MATCHING SUBSEGMENTAL VENTILATION AND PERFUSION DEFECTS. HOWEVER, A LIMITED SET OF IMAGES WERE ACQUIRED. FINDINGS ARE INDETERMINATE. IF THERE IS STRONG CLINICAL SUSPICION, THEN MAY CONSIDER PULMONARY CTA. MAY ALSO CONSIDER VENOUS DOPPLER OF THE LOWER EXTREMITIES TO DETERMINE IF THERE IS ANY EVIDENCE OF UNDERLYING DEEP VENOUS THROMBOSIS. Chest X-Ray 06/25/18 00:00 IMPRESSION: Mild patchy right basilar opacities possibly infection or asymmetric edema. Unchanged right basilar pleural thickening. Assessment and Plan - Diagnosis (1) Sepsis Qualifiers: Sepsis type: Streptococcus, other Qualified Code(s): A40.8 - Other streptococcal sepsis Is this a current diagnosis for this admission?: Yes Plan: Resolved (2) Acute respiratory failure with hypoxia Is this a current diagnosis for this admission?: Yes Plan: The patient in fact had an oxygen saturation of 97% on room air earlier this morning. The nurse reports that he demanded to be on oxygen. He does have congested breath sounds. Some of the need could be psychological. (3) Acute cystitis with positive culture Is this a current diagnosis for this admission?: Yes Plan: Complete levofloxacin as ordered (4) Acute congestive heart failure Qualifiers: Heart failure type: unspecified Qualified Code(s): I50.9 - Heart failure, unspecified Is this a current diagnosis for this admission?: Yes Plan: We have stopped the intravenous fluids. I have ordered a single dose of IV Lasix. We will see if this helps his breathing. (5) Anemia Qualifiers: Anemia type: other cause Is this a current diagnosis for this admission?: Yes Plan: Hemoglobin continues to slowly improve. Continue to monitor. (6) Hypoxia Is this a current diagnosis for this admission?: Yes Plan: As noted above the patient requested oxygen this morning despite having an oxygen saturation of 97%. (7) Pain of metastatic malignancy Is this a current diagnosis for this admission?: Yes Plan: Reasonable pain control with current regimen. Continue same. (8) Paraplegia Is this a current diagnosis for this admission?: Yes Plan: Secondary to spinal metastases. Per the patient's sister does not appear that the weakness will resolve as it is due to metastatic disease. (9) Obesity, Class II, BMI 35-39.9 Is this a current diagnosis for this admission?: Yes Plan: As noted above the obesity could be contributing to a hypoventilation syndrome. His weight also limits some of his bed mobility. (10) COPD (chronic obstructive pulmonary disease) Qualifiers: Chronic bronchitis type: simple Is this a current diagnosis for this admission?: Yes Plan: Due to the nature of his cough and history of COPD I have started the patient on scheduled inhaler therapy. We will utilize Brio Ellipta in place of his Advair. I have also added Spiriva. This and resumption of Lasix should make a big difference in his breathing. - Time Time Spent with patient: 15-24 minutes Medications reviewed and adjusted accordingly: Yes Anticipated discharge: Home - With palliative care and home health - Plan Summary Plan Summary: Because the patient has a medical condition that requires positioning of the body in ways not feasible with a regular bed he will require a hospital bed that allows frequent repositioning to help with pain and respiratory issues including lower extremity edema and congestive heart failure. He will also benefit from repositioning due to the spine metastases of his prostate cancer.
[2018-06-28] MEDS: GUAIFENESIN 600 MG TABLET.SA PO SCH (22:03)
[2018-06-28] MEDS: SIMVASTATIN 10 MG TABLET PO SCH (22:03)
[2018-06-29] MEDS: OXYCODONE HCL IR 5 MG TABLET PO PRN ×3 (00:45→17:42)
[2018-06-29 05:22] LABS: ABSOLUTE EOSINOPHILS # (AUTO) 0.1 10^3/uL (0.0-0.6); ABSOLUTE LYMPHOCYTES (AUTO) 2.1 10^3/uL (0.5-4.7); ABSOLUTE MONOCYTES (AUTO) 0.6 10^3/uL (0.1-1.4); ABSOLUTE NEUT (AUTO) 3.4 10^3/uL (1.7-8.2); BASOPHILS % (AUTO) 0.5 % (0-2); EOSINOPHILS % (AUTO) 1.4 % (0-6); HEMATOCRIT 29.8 % (37.9-51.0); HEMOGLOBIN 10.3 g/dL (13.5-17.0); LYMPHOCYTES % (AUTO) 33.9 % (13-45); MEAN CORPUSCULAR HEMOGLOBIN 30.6 pg (27.0-33.4); MEAN CORPUSCULAR HGB CONC 34.4 g/dL (32.0-36.0); MEAN CORPUSCULAR VOLUME 89 fl (80-97); MONOCYTES % (AUTO) 9.2 % (3-13); PLATELET COUNT 138 10^3/uL (150-450); RED BLOOD COUNT 3.35 10^6/uL (4.35-5.55); RED CELL DISTRIBUTION WIDTH 16.8 % (11.5-14.0); TOTAL CELLS COUNTED % (AUTO) 100 %; WHITE BLOOD COUNT 6.1 10^3/uL (4.0-10.5)
[2018-06-29] MEDS: PANTOPRAZOLE SODIUM 40 MG TABLET.DR PO SCH (05:27)
[2018-06-29] MEDS: GABAPENTIN 300 MG CAPSULE PO SCH ×3 (05:27→21:03)
[2018-06-29 06:13] LABS: BLOOD UREA NITROGEN 11 mg/dL (7-20); CALCIUM 8.4 mg/dL (8.4-10.2); GLUCOSE 109 mg/dL (75-110); POTASSIUM 4.7 mmol/L (3.6-5.0)
[2018-06-29 06:20] LABS: ANION GAP 4 (5-19); CARBON DIOXIDE 31 mmol/L (22-30); CHLORIDE 99 mmol/L (98-107)
[2018-06-29 06:21] LABS: SODIUM 134.1 mmol/L (137-145)
[2018-06-29] MEDS: FLUTICASONE/VILANTEROL 200-25 MCG/DOSE IH SCH (10:42)
[2018-06-29] MEDS: TIOTROPIUM BROMIDE DPI 5 CAP/KIT (18 MCG/CAP) IH SCH (10:42)
[2018-06-29] MEDS: NEBIVOLOL HCL 2.5 MG TABLET PO SCH (10:43)
[2018-06-29] MEDS: MORPHINE SULFATE SR 15 MG TABLET PO SCH ×2 (10:46→21:02)
[2018-06-29] MEDS: PREDNISONE 10 MG TABLET PO SCH ×2 (10:46→17:40)
[2018-06-29] MEDS: DOCUSATE SODIUM 100 MG CAPSULE PO SCH ×2 (10:46→17:40)
[2018-06-29] MEDS: GUAIFENESIN 600 MG TABLET.SA PO SCH ×2 (10:46→21:02)
[2018-06-29] MEDS: FUROSEMIDE 40 MG TABLET PO SCH (10:46)
[2018-06-29] MEDS: ENOXAPARIN SODIUM INJ 40 MG/0.4 ML DISP.SYRIN SUBCUT SCH (10:54)
[2018-06-29] MEDS: LEVOFLOXACIN 750 MG/D5W RTU 750 MG/150 ML RTUPB IV SCH (11:23)
[2018-06-29] MEDS: ONDANSETRON HCL INJ/PF 4 MG/2 ML SDV IV PRN ×2 (11:28→16:41)
--- NOTE | 2018-06-29 14:34 | PSYCHOLOGICAL NOTE ---
Psych Note - Psych Note Date seen by psych provider: 06/29/18 Time seen by psych provider: 10:50 Psych Note: Reason for Consult:Depression Patient struggling with his diagnosis of metastatic prostate cancer. Metastatic disease to the spine with paraplegia. Decreasing appetite. Increasing weakness. Patient states he was diagnosed with cancer years ago however did go into remission. He discloses some feelings of both sadness and frustration that he did not recognize his symptoms sooner; "if I had just realized even a month earlier may be would have been a better outcome." When asked what a better outcome would be he reported having some feeling in his legs or best case being able to use them. He discloses "it is hard to prepare for the end" but wants to continue fighting. He continued to report "I am putting it in the Lord's hands I know what they are telling me but there is always a chance of a miracle." He confirms he understands that it is terminal but is trying to keep a positive outlook; "I am dying..I know that, but it is what it is...I going to keep doing what I am doing." He reports that he does not want to go into hospice yet because he is unable to continue taking his chemo medication; "I know at some point I will have to I just do not want to do it yet." When discussing if he would like to have assistance with medication he disclosed that he already takes so many medications for his treatment he is not really sure if he wants to take more. He continued to disclose concerned that there is a lot of medications out there for depression that "can make you crazy." When discussing therapeutic options he understands that when he is ready there are services through hospice that can assist him; the patient would be unable to travel to therapist office for outpatient mental health services. Patient reports that he is going to have palliative care and his sister is currently looking to hire a nurse for during the day for his care. He still discloses "I just want to go home... I spent a lot of time in hospitals lately and I know l will have to probably come back at some point but I just want to go home." Patient is alert and orientated to person, place, time and circumstance. Mood is dysphoric with blunted affect however does smile and engage with clinician. Patient denies suicidal and homicidal ideations. Delusions are absent behaviors congruent with an intact reality based presentation I organized linear thought process. Eye contact is well maintained. Conversational speech is within normal rate, tone and prosody. Intellectual abilities appear to be within the average range. Attention and concentration are good. Insight, judgment, impulse control are currently good. no medication recommendations at this time phase of life Impression/Plan: Patient is cleared from acute psychiatric services. Patient actively engaged with clinician and discussed his medical diagnosis. He was able to clearly demonstrate he understood his diagnosis is terminal. Patient was able to logically explain his reasoning was behind not wanting hospice and understands that at some point he will need to start those services; however, wants to try palliative care first. Patient does disclose both sadness and fr ustration with himself by not recognizing the symptoms of his cancer coming back. Clinician discussed different treatment options to help any depressive symptoms. Patient declines any medication and understands hospice has services that he can utilize. Dr. Finley was consulted to care and management of this patient some call attending physicians in agreement with recommendations and disposition.
[2018-06-29] MEDS: ALPRAZOLAM 0.25 MG TABLET PO SCH (17:40)
[2018-06-29] MEDS: SIMVASTATIN 10 MG TABLET PO SCH (21:02)
[2018-06-29] MEDS: SERTRALINE HCL 50 MG TABLET PO SCH ×2 (22:20→23:29)
[2018-06-29] MEDS ORDERED: SERTRALINE HCL 50 MG TABLET PO ONE (23:59)
[2018-06-30] MEDS: GABAPENTIN 300 MG CAPSULE PO SCH ×3 (05:49→22:30)
[2018-06-30] MEDS: PANTOPRAZOLE SODIUM 40 MG TABLET.DR PO SCH (05:50)
[2018-06-30] MEDS: ONDANSETRON HCL INJ/PF 4 MG/2 ML SDV IV PRN (06:00)
--- NOTE | 2018-06-30 06:45 | PDOC PROGRESS REPORT ---
Subjective Progress Note for:: 06/29/18 Subjective:: The patient reports nausea and vomiting with minimal bites of food. The smell of food makes him nauseous. He can tolerate water, Pepcid, Ensure and fruit however. He states that he took 2 bites of scrambled eggs this morning and immediately threw up. He did eat some cream of chicken soup yesterday. He just started back on his Xtandi but he states that on Xtandi this is never happened before. His stomach is fairly settled in between episodes. Reason For Visit: ACUTE RESPIRATORY FAILURE,PROSTATE CA, UTI Physical Exam Vital Signs: Temp Pulse Resp BP Pulse Ox 98.1 F 116 H 16 123/73 92 06/29/18 12:33 06/29/18 14:00 06/29/18 12:33 06/29/18 12:33 06/29/18 12:33 Intake & Output 06/28/18 06/29/18 06/30/18 06:59 06:59 06:59 Intake Total 595 1187 Balance 595 1187 Weight 108.9 kg 108.9 kg General appearance: PRESENT: cooperative, mild distress, obese, well-developed Head exam: PRESENT: normocephalic Eye exam: PRESENT: conjunctiva pale. ABSENT: scleral icterus Mouth exam: PRESENT: moist, tongue midline Respiratory exam: PRESENT: clear to auscultation ana, symmetrical, unlabored. ABSENT: accessory muscle use, rales, rhonchi, wheezes Cardiovascular exam: PRESENT: RRR, +S1, +S2 GI/Abdominal exam: PRESENT: normal bowel sounds, soft, other - Protuberant abdomen. ABSENT: distended, tenderness Rectal exam: PRESENT: deferred Neurological exam: PRESENT: alert, awake, oriented to person, oriented to place, oriented to time, oriented to situation, CN II-XII grossly intact Psychiatric exam: PRESENT: depressed, flat affect. ABSENT: agitated, anxious Focused psych exam: ABSENT: delusional, restlessness Results Laboratory Results: 06/29/18 04:55 06/29/18 04:55 06/29/18 06/29/18 04:55 04:55 WBC 6.1 RBC 3.35 L Hgb 10.3 L Hct 29.8 L MCV 89 MCH 30.6 MCHC 34.4 RDW 16.8 H Plt Count 138 L Seg Neutrophils % 55.0 Lymphocytes % 33.9 Monocytes % 9.2 Eosinophils % 1.4 Basophils % 0.5 Absolute Neutrophils 3.4 Absolute Lymphocytes 2.1 Absolute Monocytes 0.6 Absolute Eosinophils 0.1 Absolute Basophils 0.0 Sodium 134.1 L Potassium 4.7 Chloride 99 Carbon Dioxide 31 H Anion Gap 4 L BUN 11 Creatinine 0.51 L Est GFR ( Amer) > 60 Est GFR (Non-Af Amer) > 60 Glucose 109 Calcium 8.4 06/23/18 13:59 Blood Blood Culture - Final NO GROWTH IN 5 DAYS 06/23/18 11:32 Troponin I < 0.012 Impressions: Lung Scan-VQ NM 06/23/18 00:00 IMPRESSION: LIMITED STUDY. THERE ARE MULTIPLE MATCHING SUBSEGMENTAL VENTILATION AND PERFUSION DEFECTS. HOWEVER, A LIMITED SET OF IMAGES WERE ACQUIRED. FINDINGS ARE INDETERMINATE. IF THERE IS STRONG CLINICAL SUSPICION, THEN MAY CONSIDER PULMONARY CTA. MAY ALSO CONSIDER VENOUS DOPPLER OF THE LOWER EXTREMITIES TO DETERMINE IF THERE IS ANY EVIDENCE OF UNDERLYING DEEP VENOUS THROMBOSIS. Chest X-Ray 06/25/18 00:00 IMPRESSION: Mild patchy right basilar opacities possibly infection or asymmetric edema. Unchanged right basilar pleural thickening. Assessment and Plan - Diagnosis (1) Sepsis Qualifiers: Sepsis type: Streptococcus, other Qualified Code(s): A40.8 - Other streptococcal sepsis Is this a current diagnosis for this admission?: Yes Plan: Sepsis from cystitis with enterococci and Klebsiella. Treated with antibiotics. Sepsis resolved. (2) Acute respiratory failure with hypoxia Is this a current diagnosis for this admission?: Yes Plan: The patient has in fact been weaned from oxygen. He was 97% on room air this morning. He reported to the nurse that he was struggling to breathe and requested oxygen therapy. He does not have a congested cough anymore and his lungs are clear. The need for oxygen at this point might be psychological. (3) Acute cystitis with positive culture Is this a current diagnosis for this admission?: Yes Plan: Enterococcus and Klebsiella were identified. Antibiotic therapy completed. Cystitis resolved. (4) Acute congestive heart failure Qualifiers: Heart failure type: unspecified Qualified Code(s): I50.9 - Heart failure, unspecified Is this a current diagnosis for this admission?: Yes Plan: The patient is currently stable on nebivolol and furosemide. (5) Anemia Qualifiers: Anemia type: other cause Is this a current diagnosis for this admission?: Yes Plan: Since his transfusion his hemoglobin continues to improve. (6) Hypoxia Is this a current diagnosis for this admission?: Yes Plan: As noted above despite pulse oximetry revealing 97% on room air earlier today he requested oxygen. This could be psychological and related and anxiety and depression. (7) Pain of metastatic malignancy Is this a current diagnosis for this admission?: Yes Plan: Reasonable pain control on current regimen. Bone metastases likely the most painful lesions. (8) Paraplegia Is this a current diagnosis for this admission?: Yes Plan: Because patient is bedbound, I have ordered a Lonnie lift and sling for the planned discharge to home on palliative care. (9) Obesity, Class II, BMI 35-39.9 Is this a current diagnosis for this admission?: Yes Plan: As noted above the obesity could be contributing to a hypoventilation syndrome. His weight also limits some of his bed mobility. (10) COPD (chronic obstructive pulmonary disease) Qualifiers: Chronic bronchitis type: simple Is this a current diagnosis for this admission?: Yes Plan: Due to the nature of his cough and history of COPD I have started the patient on scheduled inhaler therapy. We will utilize Brio Ellipta in place of his Advair. I have also added Spiriva. This and resumption of Lasix should make a big difference in his breathing. (11) Anxiety with depression Is this a current diagnosis for this admission?: Yes Plan: I asked psychiatry to see the patient today. The patient appears very depressed and I believe he is extremely anxious about his prognosis and changing to palliative care and most likely eventually hospice. I started low-dose alprazolam as well as Zoloft at night. Hopefully this will help him. (12) Nausea and vomiting Qualifiers: Vomiting type: unspecified Vomiting Intractability: non-intractable Qualified Code(s): R11.2 - Nausea with vomiting, unspecified Is this a current diagnosis for this admission?: Yes Plan: The cycle of vomiting after several bites of food is disconcerting for an ileus but the patient has moved his bowels and he has positive bowel sounds. He also tolerates certain food and drink items such as water, Pepcid, Ensure and fruit. It certainly could be stronger smells that are turning his stomach. Anxiety could be playing a role. I am going to institute a trial of Reglan given before meals to see if this helps. - Time Time Spent with patient: 25-34 minutes Medications reviewed and adjusted accordingly: Yes - Plan Summary Plan Summary: Patient was a resident at [facility]. After palliative care consult to the wants to return home with palliative care. Plans are in the making to discharge the patient. First care must be arranged as his sister is leaving for home on Saturday. A combination of home health and private duty will be required. We are ordering appropriate equipment for home as well. The patient would be appropriate for hospice but is not psychologically ready for that change. I did have psychiatry see the patient today as well. Hopefully the addition of sertraline and alprazolam will help relax him and at least improve his levels of anxiety and depression.
[2018-06-30] MEDS: METOCLOPRAMIDE HCL INJ/PF 10 MG/2 ML SDV IV SCH ×3 (08:10→15:15)
[2018-06-30] MEDS: MORPHINE SULFATE SR 15 MG TABLET PO SCH ×2 (09:59→22:30)
[2018-06-30] MEDS: PREDNISONE 10 MG TABLET PO SCH ×2 (09:59→18:48)
[2018-06-30] MEDS: DOCUSATE SODIUM 100 MG CAPSULE PO SCH ×2 (09:59→18:48)
[2018-06-30] MEDS: ALPRAZOLAM 0.25 MG TABLET PO SCH ×2 (09:59→18:48)
[2018-06-30] MEDS: GUAIFENESIN 600 MG TABLET.SA PO SCH ×2 (09:59→22:30)
[2018-06-30] MEDS: FUROSEMIDE 40 MG TABLET PO SCH (09:59)
[2018-06-30] MEDS: FLUTICASONE/VILANTEROL 200-25 MCG/DOSE IH SCH (10:00)
[2018-06-30] MEDS: NEBIVOLOL HCL 2.5 MG TABLET PO SCH (10:00)
[2018-06-30] MEDS: TIOTROPIUM BROMIDE DPI 5 CAP/KIT (18 MCG/CAP) IH SCH (10:01)
[2018-06-30] MEDS: ENOXAPARIN SODIUM INJ 40 MG/0.4 ML DISP.SYRIN SUBCUT SCH (10:01)
[2018-06-30] MEDS: LEVOFLOXACIN 750 MG/D5W RTU 750 MG/150 ML RTUPB IV SCH (12:08)
[2018-06-30] MEDS: POLYETHYLENE GLYCOL 3350 POWDER 17 GM/1 PACKET PO SCH (16:36)
[2018-06-30] MEDS ORDERED: SERTRALINE HCL 50 MG TABLET PO SCH (22:00)
[2018-06-30] MEDS: SIMVASTATIN 10 MG TABLET PO SCH (22:31)
[2018-07-01] MEDS: ONDANSETRON HCL INJ/PF 4 MG/2 ML SDV IV PRN ×2 (04:51→09:56)
[2018-07-01] MEDS: PREDNISONE 10 MG TABLET PO SCH (09:58)
[2018-07-01] MEDS: MORPHINE SULFATE SR 15 MG TABLET PO SCH (09:58)
[2018-07-01] MEDS: FUROSEMIDE 40 MG TABLET PO SCH (09:59)
[2018-07-01] MEDS: ALPRAZOLAM 0.25 MG TABLET PO SCH (09:59)
[2018-07-01] MEDS: GUAIFENESIN 600 MG TABLET.SA PO SCH (09:59)
[2018-07-01] MEDS: PANTOPRAZOLE SODIUM 40 MG TABLET.DR PO SCH (09:59)
[2018-07-01] MEDS: NEBIVOLOL HCL 2.5 MG TABLET PO SCH (09:59)
[2018-07-01] MEDS: DOCUSATE SODIUM 100 MG CAPSULE PO SCH (09:59)
[2018-07-01] MEDS: GABAPENTIN 300 MG CAPSULE PO SCH (09:59)
[2018-07-01] MEDS: POLYETHYLENE GLYCOL 3350 POWDER 17 GM/1 PACKET PO SCH (10:00)
[2018-07-01] MEDS: FLUTICASONE/VILANTEROL 200-25 MCG/DOSE IH SCH (10:03)
[2018-07-01] MEDS: TIOTROPIUM BROMIDE DPI 5 CAP/KIT (18 MCG/CAP) IH SCH (10:03)
[2018-07-01] MEDS: ENOXAPARIN SODIUM INJ 40 MG/0.4 ML DISP.SYRIN SUBCUT SCH (10:11)
[2018-07-01] MEDS ORDERED: METOCLOPRAMIDE HCL INJ/PF 10 MG/2 ML SDV IV SCH (11:00)
[2018-07-01 12:05] VITALS: BP 142/83
--- NOTE | 2018-07-01 15:02 | PDOC PROGRESS REPORT ---
Subjective Progress Note for:: 06/30/18 Subjective:: The patient is no better after the trial of Reglan. This morning he took several bites of eggs again and threw up. He still can tolerate Ensure, water, Pepsi and fruit. He also can tolerate pudding and ice cream. Reason For Visit: ACUTE RESPIRATORY FAILURE,PROSTATE CA, UTI Physical Exam Vital Signs: Temp Pulse Resp BP Pulse Ox 98.2 F 87 16 126/79 H 95 06/30/18 11:27 06/30/18 11:27 06/30/18 11:27 06/30/18 11:27 06/30/18 11:27 Intake & Output 06/29/18 06/30/18 07/01/18 06:59 06:59 06:59 Intake Total 1187 1460 Balance 1187 1460 Weight 108.9 kg 108.9 kg General appearance: PRESENT: cooperative, mild distress, obese, well-developed Head exam: PRESENT: atraumatic, normocephalic Ear exam: PRESENT: normal external ear exam Respiratory exam: PRESENT: clear to auscultation ana, symmetrical, unlabored. ABSENT: accessory muscle use, rales, rhonchi, wheezes Cardiovascular exam: PRESENT: RRR, +S1, +S2 GI/Abdominal exam: PRESENT: normal bowel sounds, soft. ABSENT: distended, t enderness Rectal exam: PRESENT: deferred Neurological exam: PRESENT: alert, awake, oriented to person, oriented to place, oriented to time, oriented to situation, CN II-XII grossly intact Psychiatric exam: PRESENT: flat affect. ABSENT: agitated, anxious Focused psych exam: ABSENT: delusional, restlessness Results Laboratory Results: 06/29/18 04:55 06/29/18 04:55 06/23/18 11:32 Troponin I < 0.012 Impressions: Lung Scan-VQ NM 06/23/18 00:00 IMPRESSION: LIMITED STUDY. THERE ARE MULTIPLE MATCHING SUBSEGMENTAL VENTILATI ON AND PERFUSION DEFECTS. HOWEVER, A LIMITED SET OF IMAGES WERE ACQUIRED. FINDINGS ARE INDETERMINATE. IF THERE IS STRONG CLINICAL SUSPICION, THEN MAY CONSIDER PULMONARY CTA. MAY ALSO CONSIDER VENOUS DOPPLER OF THE LOWER EXTREMITIES TO DETERMINE IF THERE IS ANY EVIDENCE OF UNDERLYING DEEP VENOUS THROMBOSIS. Chest X-Ray 06/25/18 00:00 IMPRESSION: Mild patchy right basilar opacities possibly infection or asymmetric edema. Unchanged right basilar pleural thickening. Assessment and Plan - Diagnosis (1) Sepsis Qualifiers: Sepsis type: Streptococcus, other Qualified Code(s): A40.8 - Other streptococcal sepsis Is this a current diagnosis for this admission?: Yes Plan: Sepsis from cystitis with enterococci and Klebsiella. Treated with antibiotics. Sepsis resolved. (2) Acute respiratory failure with hypoxia Is this a current diagnosis for this admission?: Yes Plan: The patient is on room air again this morning. It is very possible that yesterday's need for oxygen could have been anxiety related. He appears comfortable on room air this morning. He is receiving inhaler therapy as noted below. Acute respiratory failure resolved. (3) Acute cystitis with positive culture Is this a current diagnosis for this admission?: Yes Plan: Treated with antibiotic therapy and resolved (4) Acute congestive heart failure Qualifiers: Heart failure type: unspecified Qualified Code(s): I50.9 - Heart failure, unspecified Is this a current diagnosis for this admission?: Yes Plan: The current regimen seems to be providing excellent control of his congestive failure. Continue current regimen. (5) Anemia Qualifiers: Anemia type: other cause Is this a current diagnosis for this admission?: Yes Plan: Patient's hemoglobin continues to improve. Continue to monitor the primary care provider (6) Hypoxia Is this a current diagnosis for this admission?: Yes Plan: Resolved. Back on room air. (7) Pain of metastatic malignancy Is this a current diagnosis for this admission?: Yes Plan: Reasonable control with current regimen. Monitor for constipation and/or respiratory depression. (8) Paraplegia Is this a current diagnosis for this admission?: Yes Plan: From spinal metastases. The patient will have a Lonnie lift at home. He already has a wheelchair. We have also ordered a hospital bed. (9) Obesity, Class II, BMI 35-39.9 Is this a current diagnosis for this admission?: Yes Plan: The patient will be returning home on palliative care. His morbid obesity does make it more difficult to reposition, transfer to the wheelchair and perform daily hygiene. At this point it is a clinically insignificant issue. I do expect that he may progress to hospice after several more weeks if the home with palliative care scenario does not work out. (10) COPD (chronic obstructive pulmonary disease) Qualifiers: Chronic bronchitis type: simple Is this a current diagnosis for this admission?: Yes Plan: Continue long-acting inhaler regimen including Spiriva and dual medication Brio Ellipta (11) Anxiety with depression Is this a current diagnosis for this admission?: Yes Plan: The patient is going through difficult time. Please also see psych note. I have taken liberty of starting the patient on low-dose scheduled alprazolam and low-dose sertraline. (12) Nausea and vomiting Qualifiers: Vomiting type: unspecified Vomiting Intractability: non-intractable Qualified Code(s): R11.2 - Nausea with vomiting, unspecified Is this a current diagnosis for this admission?: Yes Plan: The patient admitted that this cycle of emesis after eating several bites of certain foods, especially those with strong odors is something he has been thr ough. He admits that the cycle typically lasts about a week. He can go months without recurrence. Reglan was ineffective. - Time Time Spent with patient: 25-34 minutes Medications reviewed and adjusted accordingly: Yes Anticipated discharge: Home - Home with palliative care services
--- NOTE | 2018-07-01 16:47 | PDOC DISCHARGE SUMMARY ---
General - Admit/Disc Date/PCP Admission Date/Primary Care Provider: 06/24/18 16:23 MIRANDA LOU MD Discharge Date: 07/01/18 - Discharge Diagnosis (1) Sepsis Is this a current diagnosis for this admission?: Yes Summary: Sepsis from cystitis with enterococci and Klebsiella. Treated with antibiotics. Sepsis resolved. (2) Acute cystitis with positive culture Is this a current diagnosis for this admission?: Yes Summary: Treated with antibiotic therapy and resolved (3) Acute respiratory failure with hypoxia Is this a current diagnosis for this admission?: Yes Summary: Resolved (4) Acute congestive heart failure Is this a current diagnosis for this admission?: Yes Summary: Not overloaded after receiving some aggressive IV fluids and packed red blood cells. Responded with diuresis. This resolved and he is going home on his usual medications. (5) Nausea and vomiting Is this a current diagnosis for this admission?: Yes Summary: He goes through a cycle of this periodically. Antiemetics are usually ineffective, but thankfully this resolved before he went home. (6) Obesity, Class II, BMI 35-39.9 Is this a current diagnosis for this admission?: Yes Summary: Encouraged lifestyle modification (7) Pain of metastatic malignancy Is this a current diagnosis for this admission?: Yes Summary: He said he was actually oversedated at home, so we decreased his MS Contin to 15 mg twice a day to go along with his as needed oxycodone (8) Paraplegia Is this a current diagnosis for this admission?: Yes Summary: From spinal metastases. The patient will have a Lonnie lift at home. He already has a wheelchair. We have also ordered a hospital bed. - Additional Information Resuscitation Status: Full Code Discharge Diet: Regular Discharge Activity: Activity As Tolerated, Balance Activity w/Rest, Supervised Activity Prescriptions: Morphine Sulfate [Ms-Contin Sr 15 mg Tablet] 15 mg PO Q12 #20 tablet.sa Home Medications: Fluticasone/Salmeterol [Advair 250-50 Diskus 14 Dose/Diskus] 1 puff IH Q12 01/02/18 Furosemide [Lasix 40 mg Tablet] 40 mg PO DAILY 01/02/18 Nebivolol HCl [Bystolic 2.5 mg Tablet] 2.5 mg PO DAILY 01/02/18 Oxycodone HCl/Acetaminophen [Percocet 10-325 mg Tablet] 1 tab PO Q8HP PRN 01/02/18 Valsartan [Diovan 80 mg Tablet] 80 mg PO DAILY 01/02/18 Bisacodyl [Dulcolax 10 mg Supp.rect] 10 mg WI DAILYP PRN 06/23/18 Dexamethasone [Decadron 4 mg Tablet] 4 mg PO Q8 06/23/18 Enzalutamide [Xtandi] 160 mg PO DAILY 06/23/18 Gabapentin [Neurontin 300 mg Capsule] 900 mg PO Q8 06/23/18 Loperamide HCl [Imodium A-D] 2 mg PO PRN PRN 06/23/18 Ondansetron [Zofran Odt 4 mg Tablet] 4 mg PO Q8HP PRN 06/23/18 Pantoprazole Sodium [Protonix [address] Tablet] 40 mg PO QAM 06/23/18 Polyethylene Glycol 3350 [Miralax Powder 17 gm/Packet] 1 packet PO DAILY 06/23/18 Sennosides [Senna] 8.6 mg PO QPM 06/23/18 Simvastatin [Zocor 10 mg Tablet] 10 mg PO QHS 06/23/18 Morphine Sulfate [Ms-Contin Sr 15 mg Tablet] 15 mg PO Q12 #20 tablet.sa 07/01/18 History of Present Illness History of Present Illness: JEANNINE VALLECILLO is a 63 year old male with a a 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 His sister who's an RN is on bedside says that he had fever last Saturday but says no high temperature was actually reported. This was associated with minimally productive cough and wheezing. He was also noted to be more irritable last night. He as seen by EMS this morning and per ER provider was reportedly having wheezing and was saturating at 85% on room air. In the ER, he was reported to be tachypneic, have bilateral wheezing and rhonchi and was given breathing treatments. Hi sister says he does not have COPD but has asthma. Upon my encounter, he is saturating at 94% on nasal cannula. He is oriented x 4 and says his breathing has slightly improved with the breathing treatments. Work-up was remarkable for elevated lactic acid and pyuria. He is not able to report lower urinary tract symptoms as he says he barely can feel if he is urinating. Hospital Course Hospital Course: He received antibiotics for his sepsis and urinary tract infection which turned out to be due to enterococcus and Klebsiella he completed a course of treatment here. He required some aggressive fluids in a couple units of packed red blood cells and had to get some diuresis and he responded well to that. He did not require any oxygen at discharge. He said that he was oversedated on the extended release morphine he was on at home and so he was given a prescription for a smaller dose of extended release morphine dose less frequently. There were several pieces of DME that were arranged for him to have at home. His labs and examination were reassuring and he was discharged in fair condition. He wanted to go home on palliative care but not on hospice. Physical Exam Vital Signs: Temp Pulse Resp BP Pulse Ox 98.8 F 87 17 142/83 H 99 07/01/18 12:03 07/01/18 12:03 07/01/18 12:03 07/01/18 12:03 07/01/18 12:03 Intake & Output 06/30/18 07/01/18 07/02/18 06:59 06:59 06:59 Intake Total 1460 387 Balance 1460 387 Weight 108.9 kg 108 kg General appearance: PRESENT: cooperative, mild distress, obese, well-developed Head exam: PRESENT: atraumatic, normocephalic Ear exam: PRESENT: normal external ear exam Respiratory exam: PRESENT: clear to auscultation ana, symmetrical, unlabored. ABSENT: accessory muscle use, rales, rhonchi, wheezes Cardiovascular exam: PRESENT: RRR, +S1, +S2 GI/Abdominal exam: PRESENT: normal bowel sounds, soft. ABSENT: distended, tenderness Rectal exam: PRESENT: deferred Neurological exam: PRESENT: alert, awake, oriented to person, oriented to place, oriented to time, oriented to situation, CN II-XII grossly intact Psychiatric exam: PRESENT: flat affect. ABSENT: agitated, anxious Focused psych exam: ABSENT: delusional, restlessness Results Laboratory Results: 06/29/18 04:55 06/29/18 04:55 06/23/18 11:32 Troponin I < 0.012 Impressions: Lung Scan-VQ NM 06/23/18 00:00 IMPRESSION: LIMITED STUDY. THERE ARE MULTIPLE MATCHING SUBSEGMENTAL VENTILATION AND PERFUSION DEFECTS. HOWEVER, A LIMITED SET OF IMAGES WERE ACQUIRED. FINDINGS ARE INDETERMINATE. IF THERE IS STRONG CLINICAL SUSPICION, THEN MAY CONSIDER PULMONARY CTA. MAY ALSO CONSIDER VENOUS DOPPLER OF THE LOWER EXTREMITIES TO DETERMINE IF THERE IS ANY EVIDENCE OF UNDERLYING DEEP VENOUS THROMBOSIS. Chest X-Ray 06/25/18 00:00 IMPRESSION: Mild patchy right basilar opacities possibly infection or asymmetric edema. Unchanged right basilar pleural thickening. Qualifiers - * PATIENT BEING DISCHARGED WITH ANY OF THE FOLLOWING DIAGNOSIS: No Plan Time Spent: Greater than 30 Minutes
== END 2018-07-01 13:19 | disposition home health service (06) | DRG 871 ==
LOC: ER 10:52 → INTOOBSV 13:29 → EH 13:29 → 4N 17:49 → OBSVTOIN 06-24 16:23
PROVIDERS: ADMIT Hospitalist; ATTEND Internal Medicine
PROC: 30233N1 Transfusion of Nonautologous Red Blood Cells into Peripheral Vein, Percutaneous Approach (ICD-10-PCS; principal; 2018-06-25)
DX: A41.81 Sepsis due to Enterococcus (principal); J96.01 Acute respiratory failure with hypoxia; G82.20 Paraplegia, unspecified; C79.51 Secondary malignant neoplasm of bone; J44.1 Chronic obstructive pulmonary disease with (acute) exacerbation; N39.0 Urinary tract infection, site not specified; A41.89 Other specified sepsis; C61 Malignant neoplasm of prostate; D63.0 Anemia in neoplastic disease; I25.10 Atherosclerotic heart disease of native coronary artery without angina pectoris; G89.3 Neoplasm related pain (acute) (chronic); I50.9 Heart failure, unspecified; I11.0 Hypertensive heart disease with heart failure; E78.5 Hyperlipidemia, unspecified; R00.0 Tachycardia, unspecified; I25.2 Old myocardial infarction; Z95.1 Presence of aortocoronary bypass graft; Z87.891 Personal history of nicotine dependence
CPT/HCPCS: 36415; 36430; 36591; 71045; 78582; 80048; 80053; 81001; 82803; 83605; 84153; 84484; 85025; 85610; 86850; 86900; 86901; 86920; 87040; 87070; 87077; 87086; 87088; 87186; 87205; 93005; 93010; 94640; 96374; 99291; A9540; A9567; G0378; J0696; J1200; J1642; J1650; J1940; J1956; J2270; J2405; J2765; J3490; J7030; J7512; J7620; P9016; Q9969

== ENCOUNTER 2018-07-02 16:13 | Inpatient (IN) | payer MEDICAID ==
[2018-07-02] MEDS ORDERED: ONDANSETRON HCL INJ/PF 4 MG/2 ML SDV IV ONE ×2 (17:14→18:22)
[2018-07-02] MEDS ORDERED: ONDANSETRON HCL INJ/PF 4 MG/2 ML SDV ONE (17:15)
--- NOTE | 2018-07-02 17:24 | RADIOLOGY REPORT (SQ) ---
EXAM DESCRIPTION: CHEST SINGLE VIEW COMPLETED DATE/TIME: 07/02/2018 5:09 pm REASON FOR STUDY: sob COMPARISON: 06/25/2018. EXAM PARAMETERS: NUMBER OF VIEWS: One view. TECHNIQUE: Single frontal radiographic view of the chest acquired. RADIATION DOSE: NA LIMITATIONS: None. FINDINGS: LUNGS AND PLEURA: No opacities, masses or pneumothorax. Mild pleural thickening in the ri ght base unchanged. MEDIASTINUM AND HILAR STRUCTURES: No masses. Contour normal. HEART AND VASCULAR STRUCTURES: Heart normal in size. Normal vasculature. BONES: No acute findings. Degenerative changes in the spine and left shoulder. HARDWARE: Defibrillator, vascular port, and sternotomy wires. OTHER: No other significant finding. IMPRESSION: NO ACUTE RADIOGRAPHIC FINDING IN THE CHEST. TECHNICAL DOCUMENTATION: JOB ID: [id number] [employer]- All Rights Reserved Reading location - IP/workstation name: [email or web address]
--- NOTE | 2018-07-02 17:29 | ER Document Report ---
ED General - General Chief Complaint: Breathing Difficulty Stated Complaint: DIFFICULTY BREATHING Time Seen by Provider: 07/02/18 17:28 Mode of Arrival: Medic Information source: Patient Notes: 63-year-old male with coronary artery disease (defibrillator placed), congestive heart failure, hyperlipidemia, hypertension, metastatic cancer presents with acute onset of shortness of breath that occurred this morning. Patient was discharged from [facility] yesterday after being treated for sepsis due to a urinary tract infection. Patient also reports left lower extremity swelling without pain. Denies previous history of PE, DVT. TRAVEL OUTSIDE OF THE [place] IN LAST 30 DAYS: No - HPI Onset: This morning Onset/Duration: Sudden Quality of pain: No pain Associated symptoms: Leg swelling, Nausea, Shortness of breath Exacerbated by: Movement, Coughing, Deep breathing Relieved by: Denies Similar symptoms previously: No Recently seen / treated by doctor: Yes - Discharge yesterday from [facility] - Related Data Allergies/Adverse Reactions: lisinopril Adverse Reaction (Verified 07/02/18 18:56) cough Past Medical History - General Information source: Patient, Relative, [facility] Records - Social History Smoking Status: Former Smoker Frequency of alcohol use: None Drug Abuse: None Lives with: Family Family History: CAD Patient has suicidal ideation: No Patient has homicidal ideation: No - Past Medical History Cardiac Medical History: Reports: Hx Congestive Heart Failure, Hx Coronary Art saba Disease, Hx Heart Attack, Hx Hypercholesterolemia, Hx Hypertension Pulmonary Medical History: Denies: Hx Asthma, Hx Bronchitis, Hx COPD, Hx Pneumonia Neurological Medical History: Denies: Hx Cerebrovascular Accident, Hx Seizures Renal/ Medical History: Denies: Hx Peritoneal Dialysis Malignancy Medical History: Reports Hx Prostate Cancer - w/mets to bone. Tumor encroached on spinal cord subsequent paraplegia -2019 GI Medical History: Denies: Hx Gastroesophageal Reflux Disease Musculoskeletal Medical History: Denies Hx Arthritis Psychiatric Medical History: Reports: Hx Depression Past Surgical History: Reports: Hx Cardiac Surgery - defib, Hx Coronary Artery Bypass Graft, Hx Open Heart Surgery - x 6 v - Immunizations Hx Diphtheria, Pertussis, Tetanus Vaccination: Yes Review of Systems - Review of Systems Constitutional: Malaise - Patient, Weakness, Weight loss, Recent illness EENT: denies: Blurred vision, Difficulty swallowing Cardiovascular: denies: Chest pain, Palpitations, Dizziness Respiratory: Short of breath Gastrointestinal: Nausea. denies: Vomiting Genitourinary: denies: Flank pain Male Genitourinary: No symptoms reported Musculoskeletal: Muscle pain, Muscle stiffness, Leg swelling Skin: denies: Rash Hematologic/Lymphatic: No symptoms reported Neurological/Psychological: denies: Confusion, Lost consciousness, Headaches -: Yes All other systems reviewed and negative Physical Exam - Vital signs Vitals: Pulse Ox 94 07/02/18 16:23 Interpretation: Hypoxic - Notes Notes: PHYSICAL EXAMINATION: GENERAL: Well-appearing, well-nourished and in no acute distress. HEAD: Atraumatic, normocephalic. EYES: Pupils equal round and reactive to light, extraocular movements intact, sclera anicteric, conjunctiva are normal. ENT: Nares patent, oropharynx clear without exudates. Moist mucous membranes. NECK: Normal range of motion, supple without lymphadenopathy LUNGS: Breath sounds clear to auscultation bilaterally and equal. No wheezes rales or rhonchi. HEART: Regular rate and rhythm without murmurs ABDOMEN: Soft, nontender, nondistended abdomen. No guarding, no rebound. No masses appreciated. Musculoskeletal: Patient has no range of motion of the lower extremities left lower extremity with 1+ edema, calf nontender, no erythema. No cyanosis. NEUROLOGICAL: Cranial nerves grossly intact. Normal speech. PSYCH: Normal mood, normal affect. SKIN: Warm, Dry, normal turgor, no rashes or lesions noted. Course - Re-evaluation Re-evalutation: 07/02/18 22:08 Laboratory 07/02/18 07/02/18 07/02/18 18:10 18:10 18:10 WBC 8.7 RBC 3.41 L Hgb 10.5 L Hct 30.6 L MCV 90 MCH 30.8 MCHC 34.3 RDW 17.0 H Plt Count 159 Seg Neutrophils % 52.2 Lymphocytes % 34.6 Monocytes % 11.9 Eosinophils % 0.7 Basophils % 0.6 Absolute Neutrophils 4.6 Absolute Lymphocytes 3.0 Absolute Monocytes 1.0 Absolute Eosinophils 0.1 Absolute Basophils 0.1 VBG pH VBG pCO2 VBG HCO3 VBG Base Excess Sodium 131.8 L Potassium 4.5 Chloride 94 L Carbon Dioxide 31 H Anion Gap 7 BUN 17 Creatinine 0.57 Est GFR ( Amer) > 60 Est GFR (Non-Af Amer) > 60 Glucose 119 H Calcium 8.8 Total Bilirubin 1.0 Direct Bilirubin 0.3 Neonat Total Bilirubin Not Reportable Neonat Direct Bilirubin Not Reportable Neonat Indirect Bili Not Reportable AST 18 ALT 22 Alkaline Phosphatase 369 H Creatine Kinase 29 L CK-MB (CK-2) 0.37 Troponin I 0.029 Total Protein 5.2 L Albumin 2.8 L 07/02/18 18:10 WBC RBC Hgb Hct MCV MCH MCHC RDW Plt Count Seg Neutrophils % Lymphocytes % Monocytes % Eosinophils % Basophils % Absolute Neutrophils Absolute Lymphocytes Absolute Monocytes Absolute Eosinophils Absolute Basophils VBG pH 7.35 VBG pCO2 55.4 VBG HCO3 30.0 VBG Base Excess 3.4 Sodium Potassium Chloride Carbon Dioxide Anion Gap BUN Creatinine Est GFR ( Amer) Est GFR (Non-Af Amer) Glucose Calcium Total Bilirubin Direct Bilirubin Neonat Total Bilirubin Neonat Direct Bilirubin Neonat Indirect Bili AST ALT Alkaline Phosphatase Creatine Kinase CK-MB (CK-2) Troponin I Total Protein Albumin Chest X-Ray 07/02/18 16:51 IMPRESSION: NO ACUTE RADIOGRAPHIC FINDING IN THE CHEST. Chest/Abdomen CTA 07/02/18 17:53 IMPRESSION: Acute pulmonary embolism involving the distal right main pulmonary artery and right upper, middle, and lower lobe segmental branches. Temp Pulse Resp BP Pulse Ox 15 121/63 97 07/02/18 19:37 07/02/18 19:37 07/02/18 20:12 07/02/18 22:13 63-year-old male with coronary artery disease (defibrillator placed), congestive heart failure, hyperlipidemia, hypertension, metastatic cancer presents with acute onset of shortness of breath that occurred this morning. Patient was discharged from [facility] yesterday after being treated for sepsis due to a urinary tract infection. Patient also reports left lower extremity swelling without pain. Denies previous history of PE, DVT. Vital signs reviewed. Patient appears pale, dehydrated but is in no acute distress. Son and sister are at the bedside and sister provides the majority of the history. Previous medical records and nursing notes reviewed. After extensive talks with the sister and the patient the patient has decided to be a DNR. CTA was obtained and showed acute pulmonary embolism involving the right main pulmonary artery right upper, middle and lower lobe segmental branches. Weight- based Lovenox was administered. Patient has been accepted by the hospitalist for telemetry. 07/02/18 22:20 - Vital Signs Vital signs: Temp Pulse Resp BP Pulse Ox 15 121/63 97 07/02/18 19:37 07/02/18 19:37 07/02/18 20:12 - Laboratory Result Diagrams: 07/02/18 18:10 07/02/18 18:10 Laboratory results interpreted by me: 07/02/18 07/02/18 18:10 18:10 RBC 3.41 L Hgb 10.5 L Hct 30.6 L RDW 17.0 H Sodium 131.8 L Chloride 94 L Carbon Dioxide 31 H Glucose 119 H Alkaline Phosphatase 369 H Creatine Kinase 29 L Total Protein 5.2 L Albumin 2.8 L - Diagnostic Test Radiology reviewed: Image reviewed, Reports reviewed - EKG Interpretation by Me EKG shows normal: Sinus rhythm Rate: Tachycardia Waterman/QRS: RBBB When compared to previous EKG there are: Changes noted Critical Care Note - Critical Care Note Total time excluding time spent on procedures (mins): 40 - Minutes of critical care time spent in direct contact evaluating and reevaluating the patient, treating symptoms, reviewing labs and studies and speaking with family and consultants excluding any procedures Discharge - Discharge Clinical Impression: Prostate cancer metastatic to bone, Paraplegia, Hypoxia, DNR (do not resuscitate), Pain of metastatic malignancy Acute pulmonary embolism Qualifiers: Pulmonary embolism type: unspecified Acute cor pulmonale presence: without acute cor pulmonale Qualified Code(s): I26.99 - Other pulmonary embolism without acute cor pulmonale Condition: Fair Disposition: ADMITTED INPATIENT Admitting Provider: Solo (Hospitalist) Unit Admitted: Telemetry
[2018-07-02] MEDS ORDERED: IPRATROPIUM/ALBUTEROL 0.5-2.5 MG/3 ML AMPUL NEB ONE (17:52)
[2018-07-02] MEDS ORDERED: MORPHINE SULFATE 10 MG/ML INJ IV ONE (18:22)
[2018-07-02 18:29] LABS: ABSOLUTE BASOPHILS # (AUTO) 0.1 10^3/uL (0.0-0.2); ABSOLUTE EOSINOPHILS # (AUTO) 0.1 10^3/uL (0.0-0.6); ABSOLUTE NEUT (AUTO) 4.6 10^3/uL (1.7-8.2); BASOPHILS % (AUTO) 0.6 % (0-2); EOSINOPHILS % (AUTO) 0.7 % (0-6); HEMATOCRIT 30.6 % (37.9-51.0); HEMOGLOBIN 10.5 g/dL (13.5-17.0); LYMPHOCYTES % (AUTO) 34.6 % (13-45); MEAN CORPUSCULAR HEMOGLOBIN 30.8 pg (27.0-33.4); MEAN CORPUSCULAR HGB CONC 34.3 g/dL (32.0-36.0); MEAN CORPUSCULAR VOLUME 90 fl (80-97); MONOCYTES % (AUTO) 11.9 % (3-13); PLATELET COUNT 159 10^3/uL (150-450); RED BLOOD COUNT 3.41 10^6/uL (4.35-5.55); SEGMENTED NEUTROPHILS % (AUTO) 52.2 % (42-78); TOTAL CELLS COUNTED % (AUTO) 100 %; WHITE BLOOD COUNT 8.7 10^3/uL (4.0-10.5)
[2018-07-02 18:30] LABS: VENOUS BLOOD BASE EXCESS 3.4 mmol/L; VENOUS BLOOD PCO2 55.4 mmHg (35-63); VENOUS BLOOD PH 7.35 (7.30-7.42)
[2018-07-02 18:45] LABS: ALANINE AMINOTRANSFERASE 22 U/L (21-72); ALBUMIN 2.8 g/dL (3.5-5.0); ALKALINE PHOSPHATASE 369 U/L (38-126); ANION GAP 7 (5-19); ASPARTATE AMINO TRANSFERASE 18 U/L (17-59); BILIRUBIN,DIRECT 0.3 mg/dL (0.0-0.4); BLOOD UREA NITROGEN 17 mg/dL (7-20); CALCIUM 8.8 mg/dL (8.4-10.2); CARBON DIOXIDE 31 mmol/L (22-30); CHLORIDE 94 mmol/L (98-107); CREATINE KINASE 29 U/L (55-170); GLUCOSE 119 mg/dL (75-110); POTASSIUM 4.5 mmol/L (3.6-5.0); SODIUM 131.8 mmol/L (137-145); TOTAL PROTEIN 5.2 g/dL (6.3-8.2)
[2018-07-02 18:58] LABS: CREATINE KINASE MB 0.37 ng/mL (<4.55); TROPONIN I 0.029 ng/mL
--- NOTE | 2018-07-02 20:42 | RADIOLOGY REPORT (SQ) ---
CT CHEST ANGIOGRAPHY WITHOUT THEN WITH IV CONTRAST HISTORY: Shortness of breath. COMPARISON: 03/26/2017 TECHNIQUE: CT angiogram of the chest with IV contrast. 3-D MIP images were obtained in coronal and sagittal reconstructions. This exam was performed according to our departmental dose-optimization program, which includes automated exposure control, adjustment of the mA and/or kV according to patient size and/or use of iterative reconstruction technique. FINDINGS: There are filling defects in the distal right main pulmonary artery extending into the right upper, middle, and lower lobe segmental branches consistent with acute pulmonary embolism. There may be additional filling defects in the left lower lobe segmental branches versus artifact. No aortic aneurysm or dissection is seen. The thyroid gland is normal. No mediastinal, hilar, or axillary adenopathy is seen. The heart size is normal without pericardial effusion. There are trace bilateral pleural effusions with adjacent areas of scarring and atelectasis. No pneumothorax is seen. The visualized upper abdomen demonstrates no acute findings. Prior median sternotomy is noted. There is unchanged metastatic disease throughout the thoracic spine. IMPRESSION: Acute pulmonary embolism involving the distal right main pulmonary artery and right upper, middle, and lower lobe segmental branches.
[2018-07-02] MEDS ORDERED: RINGERS SOLUTION,LACTATED 1,000 ML IV ONE (21:08)
[2018-07-02] MEDS: ENOXAPARIN SODIUM INJ 120 MG/0.8 ML DISP.SYRIN SUBCUT SCH (21:15)
[2018-07-02] MEDS ORDERED: MAG HYDROX/AL HYDROX/SIMETH SUSP 30 ML UDCUP PO PRN (21:29)
[2018-07-02] MEDS ORDERED: ACETAMINOPHEN 325 MG TABLET PO PRN (21:29)
[2018-07-02] MEDS ORDERED: IPRATROPIUM/ALBUTEROL 0.5-2.5 MG/3 ML AMPUL NEB PRN (21:29)
[2018-07-02] MEDS ORDERED: MAGNESIUM HYDROXIDE SUSP 30 ML UDCUP PO PRN (21:29)
[2018-07-02] MEDS ORDERED: NORMAL SALINE 1000 ML 1,000 ML IV SCH (21:30)
[2018-07-02] MEDS ORDERED: NA PHOS,M-B/NA PHOS,DI-BA (ADULT) 133 ML ENEMA PR PRN (21:32)
[2018-07-02] MEDS ORDERED: FENTANYL CITRATE INJ/PF 100 MCG/2 ML AMPUL IV PRN (21:32)
[2018-07-02] MEDS ORDERED: GABAPENTIN 300 MG CAPSULE PO ONE (23:00)
[2018-07-02] MEDS ORDERED: MORPHINE SULFATE SR 15 MG TABLET PO ONE (23:00)
[2018-07-02] MEDS ORDERED: SIMVASTATIN 10 MG TABLET PO ONE (23:00)
[2018-07-03] MEDS: IPRATROPIUM/ALBUTEROL 0.5-2.5 MG/3 ML AMPUL NEB SCH ×4 (02:04→20:20)
--- NOTE | 2018-07-03 03:02 | PDOC H&P ---
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 Presents with 12 hours of left leg swelling and pain in the emergency room is found to have a deep vein thrombosis and a extensive right pulmonary artery with upper, mid and lower lobe involvement. He is hemodynamically stable he receives Lovenox and referred to the hospitalist for admission. Additional past medical history includes 6 vessel coronary artery bypass graft, congestive heart failure, hypertension and depression. Patient recalls use of Lovenox while hospitalized. Past Medical History Cardiac Medical History: Reports: Congestive Heart Failure, Coronary Artery Disease, Myocardial Infarction, Hyperlipidema, Hypertension Pulmonary Medical History: Denies: Asthma, Bronchitis, Chronic Obstructive Pulmonary Disease (COPD), Pneumonia Neurological Medical History: Denies: Seizures Malignancy Medical History: Reports: Other - Metastatic prostate cancer GI Medical History: Denies: Gastroesophageal Reflux Disease Musculoskeltal Medical History: Denies: Arthritis Psychiatric Medical History: Reports: Depression - situational Hematology: Denies: Anemia Past Surgical History Past Surgical History: Reports: Coronary Artery Bypass Graft Social History Information Source: Patient Lives with: Family Smoking Status: Former Smoker Frequency of Alcohol Use: None Hx Recreational Drug Use: No Drugs: None - Advance Directive Resuscitation Status: Do Not Resuscitate Family History Family History: CAD Parental Family History Reviewed: Yes Children Family History Reviewed: Yes Sibling(s) Family History Reviewed.: Yes Medication/Allergy Home Medications: RX: Oxycodone HCl/Acetaminophen [Percocet 10-325 mg Tablet] 1 tab PO Q8HP PRN 01/02/18 RX: Enzalutamide [Xtandi] 160 mg PO DAILY 06/23/18 RX: Loperamide HCl [Imodium A-D] 2 mg PO PRN PRN 06/23/18 RX: Polyethylene Glycol 3350 [Miralax Powder 17 gm/Packet] 1 packet PO DAILY 06/23/18 RX: Sennosides [Senna] 8.6 mg PO QPM 06/23/18 RX: Bisacodyl [Dulcolax 10 mg Supp.rect] 10 mg [place] DAILYP PRN #30 supp.rect 07/01/18 RX: Dexamethasone [Decadron 4 mg Tablet] 4 mg PO Q8 #90 tablet 07/01/18 RX: Fluticasone/Salmeterol [Advair 250-50 Diskus 14 Dose/Diskus] 1 puff IH Q12 #1 inhaler 07/01/18 RX: Furosemide [Lasix 40 mg Tablet] 40 mg PO DAILY #30 tablet 07/01/18 RX: Gabapentin [Neurontin 300 mg Capsule] 900 mg PO Q8 #120 capsule 07/01/18 RX: Morphine Sulfate [Ms-Contin Sr 15 mg Tablet] 15 mg PO Q12 #20 tablet.sa 07/01/18 RX: Nebivolol HCl [Bystolic 2.5 mg Tablet] 2.5 mg PO DAILY #30 tablet 07/01/18 RX: Ondansetron [Zofran Odt 4 mg Tablet] 4 mg PO Q8HP PRN #30 tab.rapdis 9 RX: Pantoprazole Sodium [Protonix [address] Tablet] 40 mg PO QAM #30 tablet.dr 07/01/18 RX: Simvastatin [Zocor 10 mg Tablet] 10 mg PO QHS #30 tablet 07/01/18 RX: Valsartan [Diovan 80 mg Tablet] 80 mg PO DAILY #30 tablet 07/01/18 Allergies/Adverse Reactions: lisinopril Adverse Reaction (Verified 07/02/18 18:56) cough Review of Systems Constitutional: PRESENT: as per HPI, anorexia, fatigue, weakness, weight loss Eyes: ABSENT: visual disturbances Ears: ABSENT: hearing changes Cardiovascular: ABSENT: chest pain, dyspnea on exertion, edema, orthropnea, palpitations Respiratory: PRESENT: cough, dyspnea. ABSENT: sputum Gastrointestinal: PRESENT: as per HPI, bloating, constipation, nausea. ABSENT: abdominal pain, coffee ground emesis, vomiting Genitourinary: ABSENT: dysuria, hematuria Musculoskeletal: ABSENT: joint swelling Integumentary: ABSENT: rash, wounds Neurological: PRESENT: numbness, paresthesias, weakness. ABSENT: abnormal gait, abnormal speech, confusion, dizziness, focal weakness, syncope Psychiatric: PRESENT: depression Endocrine: ABSENT: cold intolerance, heat intolerance, polydipsia, polyuria Hematologic/Lymphatic: ABSENT: easy bleeding, easy bruising Physical Exam Vital Signs: Temp Pulse Resp BP Pulse Ox 98.9 F 89 18 124/67 95 07/02/18 22:34 07/03/18 01:04 07/03/18 00:01 07/03/18 00:01 07/03/18 00:01 Intake & Output 07/01/18 07/02/18 07/03/18 11:59 11:59 11:59 Weight 105.233 kg General appearance: PRESENT: cooperative, mild distress, morbidly obese, well-d eveloped, well-nourished Head exam: PRESENT: atraumatic, normocephalic Eye exam: PRESENT: conjunctiva pink, EOMI, PERRLA. ABSENT: scleral icterus Ear exam: PRESENT: normal external ear exam Mouth exam: PRESENT: moist, tongue midline Neck exam: ABSENT: carotid bruit, JVD, lymphadenopathy, thyromegaly Respiratory exam: PRESENT: clear to auscultation ana, crackles, decreased breath sounds. ABSENT: rales, rhonchi, wheezes Cardiovascular exam: PRESENT: RRR. ABSENT: diastolic murmur, rubs, systolic murmur Vascular exam: PRESENT: normal capillary refill GI/Abdominal exam: PRESENT: distended, normal bowel sounds, soft, tenderness. ABSENT: guarding, mass, organolmegaly, rebound Rectal exam: PRESENT: deferred Extremities exam: PRESENT: full ROM, +2 edema - Left leg. ABSENT: calf tenderness, clubbing, pedal edema Neurological exam: PRESENT: alert, awake, oriented to person, oriented to place, oriented to time, oriented to situation, CN II-XII grossly intact. ABSENT: motor sensory deficit Psychiatric exam: PRESENT: appropriate affect, depressed. ABSENT: homicidal ideation, suicidal ideation Skin exam: PRESENT: dry, intact, warm, other - Enzo plethora facial complexion. ABSENT: cyanosis, rash Results Laboratory Results: 07/02/18 18:10 07/02/18 18:10 07/02/18 07/02/18 07/02/18 18:10 18:10 18:10 WBC 8.7 RBC 3.41 L Hgb 10.5 L Hct 30.6 L MCV 90 MCH 30.8 MCHC 34.3 RDW 17.0 H Plt Count 159 Seg Neutrophils % 52.2 Lymphocytes % 34.6 Monocytes % 11.9 Eosinophils % 0.7 Basophils % 0.6 Absolute Neutrophils 4.6 Absolute Lymphocytes 3.0 Absolute Monocytes 1.0 Absolute Eosinophils 0.1 Absolute Basophils 0.1 VBG pH 7.35 VBG pCO2 55.4 VBG HCO3 30.0 VBG Base Excess 3.4 Sodium 131.8 L Potassium 4.5 Chloride 94 L Carbon Dioxide 31 H Anion Gap 7 BUN 17 Creatinine 0.57 Est GFR ( Amer) > 60 Est GFR (Non-Af Amer) > 60 Glucose 119 H Calcium 8.8 Total Bilirubin 1.0 AST 18 ALT 22 Alkaline Phosphatase 369 H Total Protein 5.2 L Albumin 2.8 L 07/02/18 07/02/18 18:10 18:10 Creatine Kinase 29 L CK-MB (CK-2) 0.37 Troponin I 0.029 Impressions: Chest X-Ray 07/02/18 16:51 IMPRESSION: NO ACUTE RADIOGRAPHIC FINDING IN THE CHEST. Chest/Abdomen CTA 07/02/18 17:53 IMPRESSION: Acute pulmonary embolism involving the distal right main pulmonary artery and right upper, middle, and lower lobe segmental branches. Assessment and Plan - Diagnosis (1) Acute pulmonary embolism Qualifiers: Pulmonary embolism type: unspecified Acute cor pulmonale presence: without acute cor pulmonale Qualified Code(s): I26.99 - Other pulmonary embolism without acute cor pulmonale Is this a current diagnosis for this admission?: Yes Plan: Complicated by hypercoagulable state and paraplegia. Hemodynamically stable, 1 mg/kg Lovenox ordered. Incentive spirometry and supplemental oxygen (2) DNR (do not resuscitate) Is this a current diagnosis for this admission?: Yes Plan: Poor prognosis and palliative care, verifies CODE STATUS is DNR, hospice consult placed (3) Pain of metastatic malignancy Is this a current diagnosis for this admission?: Yes Plan: OxyContin 15 mg every 12, IV fentanyl every 4 hours as needed (4) Paraplegia Is this a current diagnosis for this admission?: Yes Plan: Specialty bed (5) Prostate cancer metastatic to bone Is this a current diagnosis for this admission?: Yes Plan: On palliative care, hospice consult - Time Time Spent with patient: 35 or more minutes - Inpatient Certification Medical Necessity: Need Close Monitoring Due to Risk of Patient Decompensation
[2018-07-03 05:36] LABS: HEMATOCRIT 26.3 % (37.9-51.0); HEMOGLOBIN 9.1 g/dL (13.5-17.0); MEAN CORPUSCULAR HEMOGLOBIN 30.7 pg (27.0-33.4); MEAN CORPUSCULAR HGB CONC 34.7 g/dL (32.0-36.0); MEAN CORPUSCULAR VOLUME 89 fl (80-97); PLATELET COUNT 139 10^3/uL (150-450); RED BLOOD COUNT 2.97 10^6/uL (4.35-5.55); RED CELL DISTRIBUTION WIDTH 17.1 % (11.5-14.0); WHITE BLOOD COUNT 5.4 10^3/uL (4.0-10.5)
[2018-07-03] MEDS: GABAPENTIN 300 MG CAPSULE PO SCH ×3 (05:44→21:20)
[2018-07-03] MEDS: NORMAL SALINE 1000 ML 1,000 ML IV PRN ×2 (05:46→09:51)
[2018-07-03 05:58] LABS: BLOOD UREA NITROGEN 15 mg/dL (7-20); CALCIUM 8.6 mg/dL (8.4-10.2); GLUCOSE 98 mg/dL (75-110)
[2018-07-03 05:59] LABS: ABSOLUTE LYMPHOCYTES# (MANUAL) 0.5 10^3/uL (0.5-4.7); ABSOLUTE MONOCYTES # (MANUAL) 0.9 10^3/uL (0.1-1.4); ABSOLUTE NEUTROPHILS# (MANUAL) 3.9 10^3/uL (1.7-8.2); BAND NEUTROPHILS % (MANUAL) 4 % (3-5); BASOPHILS % (MANUAL) 1 % (0-2); EOSINOPHILS % (MANUAL) 2 % (0-6); LYMPHOCYTES % (MANUAL) 5 % (13-45); MONOCYTES % (MANUAL) 16 % (3-13); SEGMENTED NEUTROPHILS % (MAN) 68 % (42-78); TOTAL CELLS COUNTED 100
[2018-07-03 06:00] LABS: ANISOCYTOSIS 1+; HYPOCHROMASIA 1+; PLATELET COMMENT ADEQUATE; POLYCHROMASIA 1+
[2018-07-03 06:22] LABS: CARBON DIOXIDE 31 mmol/L (22-30); CHLORIDE 95 mmol/L (98-107); SODIUM 131.8 mmol/L (137-145)
[2018-07-03 06:23] LABS: ANION GAP 6 (5-19); POTASSIUM 3.5 mmol/L (3.6-5.0)
[2018-07-03] MEDS: ONDANSETRON HCL INJ/PF 4 MG/2 ML SDV IV PRN ×2 (08:33→17:52)
[2018-07-03] MEDS: DOCUSATE SODIUM 100 MG CAPSULE PO SCH ×2 (09:53→17:46)
[2018-07-03] MEDS: MORPHINE SULFATE SR 15 MG TABLET PO SCH ×2 (09:53→21:20)
[2018-07-03] MEDS: POLYETHYLENE GLYCOL 3350 POWDER 17 GM/1 PACKET PO SCH (09:54)
[2018-07-03] MEDS: LACTULOSE SYRUP 20 GM/30 ML UDCUP PO SCH ×2 (09:54→10:02)
[2018-07-03] MEDS: NEBIVOLOL HCL 2.5 MG TABLET PO SCH (09:55)
[2018-07-03] MEDS: ENOXAPARIN SODIUM INJ 120 MG/0.8 ML DISP.SYRIN SUBCUT SCH (09:57)
--- NOTE | 2018-07-03 10:22 | EKG REPORT ---
SEVERITY:- ABNORMAL ECG - SINUS TACHYCARDIA MULTIFORM VENTRICULAR PREMATURE COMPLEXES INCOMPLETE RIGHT BUNDLE BRANCH BLOCK PROBABLE LEFT VENTRICULAR HYPERTROPHY BORDERLINE PROLONGED QT INTERVAL : Confirmed by: Gil Howell 03-Jul-2018 10:21:56
[2018-07-03] MEDS ORDERED: NYSTATIN 500000 UNIT/5 ML UDCUP PO PRN (14:30)
[2018-07-03] MEDS: RIVAROXABAN 15 MG TABLET PO SCH (17:46)
[2018-07-03] MEDS: SENNOSIDES/DOCUSATE 8.6-50 MG 1 EACH TABLET PO SCH (17:47)
[2018-07-03] MEDS ORDERED: (PENDING PHARMACY ID) (Sennosides [Senna] 8.6 MG) PO SCH (18:00)
[2018-07-03] MEDS ORDERED: ONDANSETRON 4 MG TAB.RAPDIS PO PRN (19:54)
[2018-07-03] MEDS ORDERED: BISACODYL 10 MG SUPP.RECT PR PRN (19:54)
[2018-07-03] MEDS ORDERED: (PENDING PHARMACY ID) (Oxycodone Hcl/Acetaminophen [Percocet 10-325 Mg Tablet] 1 TAB) PO PRN (19:54)
[2018-07-03] MEDS ORDERED: FENTANYL CITRATE INJ/PF 100 MCG/2 ML AMPUL IV PRN (19:57)
--- NOTE | 2018-07-03 20:08 | PDOC PROGRESS REPORT ---
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 Patient was seen on evening rounds with family members present. He was found resting in bed comfortably on supplemental oxygen at 3 L/min. Nursing had tried to wean him from oxygen earlier today; rapidly desaturated to mid- 80s while on room air with associated dyspnea. Patient states that his cancer related pain is well controlled at present. He denies dyspnea, cough, chest pain, palpitations. He does note left lower extremity edema, though without tenderness. Otherwise, he denies fever, chills, body aches, abdominal pain, nausea vomiting and diarrhea. His primary concerns are anticipated discharge; hopeful to go home with oxygen tomorrow. No concerns per nursing. Reason For Visit: ACUTE DVT PE SOB LUNG CA C METS Physical Exam Vital Signs: Temp Pulse Resp BP Pulse Ox 98.0 F 95 16 125/59 L 95 07/03/18 16:07 07/03/18 16:07 07/03/18 16:07 07/03/18 16:07 07/03/18 16:07 Intake & Output 07/02/18 07/03/18 07/04/18 06:59 06:59 06:59 Intake Total 1000 2474 Balance 1000 2474 Weight 104 kg General appearance: PRESENT: no acute distress, cooperative, morbidly obese, well-developed, well-nourished Head exam: PRESENT: atraumatic, normocephalic Eye exam: PRESENT: conjunctiva pink, EOMI, PERRLA. ABSENT: scleral icterus Ear exam: PRESENT: normal external ear exam Mouth exam: PRESENT: moist, tongue midline Neck exam: ABSENT: carotid bruit, JVD, lymphadenopathy, thyromegaly Respiratory exam: PRESENT: clear to auscultation ana, decreased breath sounds, symmetrical, unlabored, other - Supplemental oxygen by nasal cannula. ABSENT: rales, rhonchi, wheezes Cardiovascular exam: PRESENT: RRR. ABSENT: diastolic murmur, rubs, systolic murmur Pulses: PRESENT: normal dorsalis pedis pul Vascular exam: PRESENT: normal capillary refill GI/Abdominal exam: PRESENT: normal bowel sounds, soft. ABSENT: distended, guarding, mass, organolmegaly, rebound, tenderness Rectal exam: PRESENT: deferred Extremities exam: PRESENT: full ROM, +2 edema - Left lower extremity. ABSENT: calf tenderness, clubbing, pedal edema Neurological exam: PRESENT: alert, awake, oriented to person, oriented to place, oriented to time, oriented to situation, CN II-XII grossly intact. ABSENT: motor sensory deficit Psychiatric exam: PRESENT: appropriate affect, depressed. ABSENT: homicidal ideation, suicidal ideation Skin exam: PRESENT: dry, intact, warm. ABSENT: cyanosis, rash Results Laboratory Results: 07/03/18 04:32 07/03/18 04:32 07/03/18 07/03/18 04:32 04:32 WBC 5.4 RBC 2.97 L Hgb 9.1 L Hct 26.3 L MCV 89 MCH 30.7 MCHC 34.7 RDW 17.1 H Plt Count 139 L Seg Neutrophils % Not Reportable Lymphocytes % Not Reportable Monocytes % Not Reportable Eosinophils % Not Reportable Basophils % Not Reportable Absolute Neutrophils Not Reportable Absolute Lymphocytes Not Reportable Absolute Monocytes Not Reportable Absolute Eosinophils Not Reportable Absolute Basophils Not Reportable Sodium 131.8 L Potassium 3.5 L D Chloride 95 L Carbon Dioxide 31 H Anion Gap 6 BUN 15 Creatinine 0.51 L Est GFR ( Amer) > 60 Est GFR (Non-Af Amer) > 60 Glucose 98 Calcium 8.6 07/02/18 07/02/18 18:10 18:10 Creatine Kinase 29 L CK-MB (CK-2) 0.37 Troponin I 0.029 Impressions: Chest X-Ray 07/02/18 16:51 IMPRESSION: NO ACUTE RADIOGRAPHIC FINDING IN THE CHEST. Chest/Abdomen CTA 07/02/18 17:53 IMPRESSION: Acute pulmonary embolism involving the distal right main pulmonary artery and right upper, middle, and lower lobe segmental branches. Assessment and Plan - Diagnosis (1) Acute pulmonary embolism Qualifiers: Pulmonary embolism type: unspecified Acute cor pulmonale presence: without acute cor pulmonale Qualified Code(s): I26.99 - Other pulmonary embolism without acute cor pulmonale Is this a current diagnosis for this admission?: Yes Plan: CTA of the chest reveals Acute pulmonary embolism involving the distal right main pulmonary artery with right upper, middle, lower lobe segmental branches affected. Complicated by hypercoagulable state and paraplegia. Hemodynamically stable. The patient was initially placed on 1 mg/kg Lovenox; did not receive morning dose as the patient's family members were concerned about a drop in his p latelets (159->139) and are requesting a heparin drip. As the patient is interested in a rapid discharged home with palliative care services; have initiated Xarelto 15 mg twice daily times 21 days with transition to 20 mg once daily thereafter. Given the patient's likelihood of recurrent DVT (paraplegia, hypercoagulable state, malignancy) he was informed that he may require lifelong anticoagulation; length of therapy determined by his oncologist/maxillofacial pathology. Continue supplemental oxygen as needed to maintain oxygen saturations >90%. Incentive spirometry Discharge planning is consulted to arrange for home O2. (2) Acute respiratory failure with hypoxia Is this a current diagnosis for this admission?: Yes Plan: Secondary to #1, management as above. (3) DNR (do not resuscitate) Is this a current diagnosis for this admission?: Yes Plan: Poor prognosis and palliative care CODE STATUS is DNR Hospice consult pending. (4) Pain of metastatic malignancy Is this a current diagnosis for this admission?: Yes Plan: Continue the patient's home regiment of MS Contin 15 mg every 12 hours, O xycodone/APAP 10 mg every 8 prn, and gabapentin, IV fentanyl every 4 hours as needed for breakthrough pain. (5) Paraplegia Is this a current diagnosis for this admission?: Yes Plan: Specialty bed (6) Prostate cancer metastatic to bone Is this a current diagnosis for this admission?: Yes Plan: On palliative care, hospice consult - Time Time Spent with patient: 25-34 minutes Medications reviewed and adjusted accordingly: Yes Anticipated discharge: Home with Homehealth Within: within 24 hours
[2018-07-03] MEDS ORDERED: OXYCODONE-ACETAMINOPHEN 5-325 MG TABLET PO PRN (20:44)
[2018-07-03] MEDS ORDERED: OXYCODONE HCL IR 5 MG TABLET PO PRN (20:45)
[2018-07-03] MEDS: DEXAMETHASONE 4 MG TABLET PO SCH (21:20)
[2018-07-03] MEDS ORDERED: (PENDING PHARMACY ID) (Fluticasone/Salmeterol 1 PUFF) IH SCH (22:00)
[2018-07-03] MEDS ORDERED: SIMVASTATIN 10 MG TABLET PO SCH (22:00)
[2018-07-04] MEDS: IPRATROPIUM/ALBUTEROL 0.5-2.5 MG/3 ML AMPUL NEB SCH ×3 (02:23→14:32)
[2018-07-04 05:00] LABS: HEMOGLOBIN 9.7 g/dL (13.5-17.0); MEAN CORPUSCULAR HEMOGLOBIN 30.8 pg (27.0-33.4); MEAN CORPUSCULAR HGB CONC 34.6 g/dL (32.0-36.0); MEAN CORPUSCULAR VOLUME 89 fl (80-97); PLATELET COUNT 140 10^3/uL (150-450); RED BLOOD COUNT 3.15 10^6/uL (4.35-5.55); RED CELL DISTRIBUTION WIDTH 16.8 % (11.5-14.0); WHITE BLOOD COUNT 5.9 10^3/uL (4.0-10.5)
[2018-07-04 05:25] LABS: ANION GAP 6 (5-19); BLOOD UREA NITROGEN 11 mg/dL (7-20); CARBON DIOXIDE 27 mmol/L (22-30); CHLORIDE 102 mmol/L (98-107); GLUCOSE 116 mg/dL (75-110); POTASSIUM 4.2 mmol/L (3.6-5.0); SODIUM 134.7 mmol/L (137-145)
[2018-07-04] MEDS: DEXAMETHASONE 4 MG TABLET PO SCH ×2 (05:33→13:24)
[2018-07-04] MEDS: GABAPENTIN 300 MG CAPSULE PO SCH ×2 (05:33→13:24)
[2018-07-04] MEDS: ONDANSETRON HCL INJ/PF 4 MG/2 ML SDV IV PRN (07:36)
[2018-07-04] MEDS ORDERED: PANTOPRAZOLE SODIUM 40 MG TABLET.DR PO SCH (08:00)
[2018-07-04] MEDS: ENZALUTAMIDE 160 MG PO SCH ×2 (08:08→09:22)
[2018-07-04] MEDS: MORPHINE SULFATE SR 15 MG TABLET PO SCH (09:20)
[2018-07-04] MEDS: RIVAROXABAN 15 MG TABLET PO SCH ×2 (09:20→17:17)
[2018-07-04] MEDS: POLYETHYLENE GLYCOL 3350 POWDER 17 GM/1 PACKET PO SCH (09:20)
[2018-07-04] MEDS: LACTULOSE SYRUP 20 GM/30 ML UDCUP PO SCH (09:22)
[2018-07-04] MEDS: DOCUSATE SODIUM 100 MG CAPSULE PO SCH ×2 (09:22→17:17)
[2018-07-04] MEDS: NEBIVOLOL HCL 2.5 MG TABLET PO SCH (09:22)
[2018-07-04] MEDS ORDERED: FUROSEMIDE 40 MG TABLET PO SCH (10:00)
[2018-07-04] MEDS ORDERED: VALSARTAN 80 MG TABLET PO SCH (10:00)
[2018-07-04] MEDS ORDERED: FLUTICASONE/VILANTEROL 200-25 MCG/DOSE IH SCH (10:00)
[2018-07-04 12:02] VITALS: BP 121/56
[2018-07-04] MEDS: SENNOSIDES/DOCUSATE 8.6-50 MG 1 EACH TABLET PO SCH (17:17)
--- NOTE | 2018-07-08 11:52 | PDOC DISCHARGE SUMMARY ---
General - Admit/Disc Date/PCP Admission Date/Primary Care Provider: 07/02/18 21:33 MIRANDA LOU MD Discharge Date: 07/04/18 - Discharge Diagnosis (1) Acute pulmonary embolism Is this a current diagnosis for this admission?: Yes Summary: CTA of the chest reveals Acute pulmonary embolism involving the distal right main pulmonary artery with right upper, middle, lower lobe segmental branches affected. Complicated by hypercoagulable state and paraplegia. Hemodynamically stable. The patient was initially placed on 1 mg/kg Lovenox; have transitioned to Xarelto 15 mg twice daily x21 days with transition to 20 mg once daily thereafter. 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 Continue supplemental oxygen as needed to maintain oxygen saturations >90%; he continues to become hypoxic on room air. Discharge planning has arranged for patient to receive home O2. On day of discharge, patient is in fair, but stable condition (overall poor prognosis) and maintaining oxygen saturations on supplemental oxygen via NC without increased work of breathing. He is discharged to home with home health services. He is advised to follow up with his PCP within 1 week. He is advised to keep his follow-up appointment with his oncologist as scheduled next week. Patient and family have been educated on how to arrange for wheelchair or stretcher transportation to outpatient appointments and are provided the contact information to [facility] ambulance transport. Recommend continued discussions with Palliative Care and Oncologist regarding Hospice services. Return to the emergency department as needed for concerning symptoms. (2) Acute respiratory failure with hypoxia Is this a current diagnosis for this admission?: Yes Summary: Improved; continues to require supplemental oxygen. Secondary to #1, management as above. (3) Pain of metastatic malignancy Is this a current diagnosis for this admission?: Yes Summary: Continue the patient's home regiment of MS Contin 15 mg every 12 hours, Oxycodone/APAP 10 mg every 8 prn, and gabapentin, IV fentanyl was provided every 4 hours as needed for breakthrough pain. Outpatient Palliative Care referral. (4) Paraplegia Is this a current diagnosis for this admission?: Yes Summary: Secondary to randolph metastasis. He was placed on a specialty mattress. Have discussed medical transportation needs/arrangements with family members for outpatient appointments. Recommend frequent repositioning to prevent skin breakdown. (5) Prostate cancer metastatic to bone Is this a current diagnosis for this admission?: Yes Summary: Follow up without establish Oncologist as scheduled. Palliative Care follow up. (6) DNR (do not resuscitate) Is this a current diagnosis for this admission?: Yes Summary: Poor prognosis CODE STATUS is DNR Palliative Care/Hospice consult placed; patient wishes to meet with oncologist prior to making any further advance care planning choices. - Additional Information Resuscitation Status: Do Not Resuscitate Discharge Diet: As Tolerated Discharge Activity: Activity As Tolerated Prescriptions: Albuterol Sulfate [Proair Hfa Inhalation Aerosol 8.5 gm Mdi] 1 puff IH Q4HP PRN #1 mdi PRN Reason: Shortness Of Breath Nystatin [Mycostatin 500,000 Unit/5 ml Susp Udcup] 500,000 unit PO Q4HP PRN #120 udc PRN Reason: Rivaroxaban [Xarelto 15 mg Tablet] 15 mg PO BID #42 tablet Rivaroxaban [Xarelto] 20 mg PO DAILY #30 tablet Home Medications: Oxycodone HCl/Acetaminophen [Percocet 10-325 mg Tablet] 1 tab PO Q8HP PRN 01/02/18 Enzalutamide [Xtandi] 160 mg PO DAILY 06/23/18 Loperamide HCl [Imodium A-D] 2 mg PO PRN PRN 06/23/18 Polyethylene Glycol 3350 [Miralax Powder 17 gm/Packet] 1 packet PO DAILY 06/23/18 Sennosides [Senna] 8.6 mg PO QPM 06/23/18 Bisacodyl [Dulcolax 10 mg Supp.rect] 10 mg [place] DAILYP PRN #30 supp.rect 07/01/18 Dexamethasone [Decadron 4 mg Tablet] 4 mg PO Q8 #90 tablet 07/01/18 Fluticasone/Salmeterol [Advair 250-50 Diskus 14 Dose/Diskus] 1 puff IH Q12 #1 inhaler 07/01/18 Furosemide [Lasix 40 mg Tablet] 40 mg PO DAILY #30 tablet 07/01/18 Gabapentin [Neurontin 300 mg Capsule] 900 mg PO Q8 #120 capsule 07/01/18 Morphine Sulfate [Ms-Contin Sr 15 mg Tablet] 15 mg PO Q12 #20 tablet.sa 07/01/18 Nebivolol HCl [Bystolic 2.5 mg Tablet] 2.5 mg PO DAILY #30 tablet 07/01/18 Ondansetron [Zofran Odt 4 mg Tablet] 4 mg PO Q8HP PRN #30 tab.rapdis 07/01/18 Pantoprazole Sodium [Protonix [address] Tablet] 40 mg PO QAM #30 tablet.dr 07/01/18 Simvastatin [Zocor 10 mg Tablet] 10 mg PO QHS #30 tablet 07/01/18 Valsartan [Diovan 80 mg Tablet] 80 mg PO DAILY #30 tablet 07/01/18 Acetaminophen [Tylenol 325 mg Tablet] 650 mg PO Q4HP PRN tablet 07/04/18 Albuterol Sulfate [Proair Hfa Inhalation Aerosol 8.5 gm Mdi] 1 puff IH Q4HP PRN #1 mdi 07/04/18 Docusate Sodium [Colace 100 mg Capsule] 100 mg PO BID capsule 07/04/18 Nystatin [Mycostatin 500,000 Unit/5 ml Susp Udcup] 500,000 unit PO Q4HP PRN #120 udc 07/04/18 Rivaroxaban [Xarelto 15 mg Tablet] 15 mg PO BID #42 tablet 07/04/18 Rivaroxaban [Xarelto] 20 mg PO DAILY #30 tablet 07/04/18 History of Present Illness History of Present Illness: Per H&P by Dr. 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 Presents with 12 hours of left leg swelling and pain in the emergency room is found to have a deep vein thrombosis and a extensive right pulmonary artery with upper, mid and lower lobe involvement. He is hemodynamically stable he receives Lovenox and referred to the hospitalist for admission. Additional past medical history includes 6 vessel coronary artery bypass graft, congestive heart failure, hypertension and depression. P atient recalls use of Lovenox while hospitalized. Physical Exam Vital Signs: Temp Pulse Resp BP Pulse Ox 98.2 F 81 14 121/56 L 95 07/04/18 16:03 07/04/18 16:03 07/04/18 16:03 07/04/18 11:24 07/04/18 16:03 General appearance: PRESENT: no acute distress, cooperative, morbidly obese, well-developed, well-nourished Head exam: PRESENT: atraumatic, normocephalic Eye exam: PRESENT: conjunctiva pink, EOMI, PERRLA. ABSENT: scleral icterus Ear exam: PRESENT: normal external ear exam Mouth exam: PRESENT: moist, tongue midline Neck exam: ABSENT: carotid bruit, JVD, lymphadenopathy, thyromegaly Respiratory exam: PRESENT: clear to auscultation ana, decreased breath sounds - bibasilar; secondary to positioning, body habitus, and poor inspiratory effort, other - supplemental oxygen. ABSENT: rales, rhonchi, wheezes Cardiovascular exam: PRESENT: RRR. ABSENT: diastolic murmur, rubs, systolic murmur Pulses: PRESENT: normal dorsalis pedis pul Vascular exam: PRESENT: normal capillary refill GI/Abdominal exam: PRESENT: normal bowel sounds, soft. ABSENT: distended, guarding, mass, organolmegaly, rebound, tenderness Rectal exam: PRESENT: deferred Extremities exam: PRESENT: +1 edema - LLE; slight improvement from yesterday, other - paraplegia; sensation intact to BLE. ABSENT: calf tenderness, clubbing, pedal edema Neurological exam: PRESENT: alert, awake, oriented to person, oriented to place, oriented to time, oriented to situation, CN II-XII grossly intact. ABSENT: motor sensory deficit Psychiatric exam: PRESENT: appropriate affect, normal mood. ABSENT: homicidal ideation, suicidal ideation Skin exam: PRESENT: dry, warm. ABSENT: cyanosis, rash Results Laboratory Results: 07/04/18 04:28 07/04/18 04:28 07/02/18 07/02/18 18:10 18:10 Creatine Kinase 29 L CK-MB (CK-2) 0.37 Troponin I 0.029 Impressions: Chest X-Ray 07/02/18 16:51 IMPRESSION: NO ACUTE RADIOGRAPHIC FINDING IN THE CHEST. Chest/Abdomen CTA 07/02/18 17:53 IMPRESSION: Acute pulmonary embolism involving the distal right main pulmonary artery and right upper, middle, and lower lobe segmental branches. Qualifiers - * PATIENT BEING DISCHARGED WITH ANY OF THE FOLLOWING DIAGNOSIS: No Plan Discharge Plan: Follow up with primary care provider within 1 week. Follow up with Oncologist as scheduled. Continue Xarelto 15 mg twice a day for 21 days, then start 20 mg once daily thereafter. Length of therapy to be determined by Oncologist (likely lifelong) Return to the Emergency Department as needed for concerning symptoms. Outpatient Palliative Care referral; recommend continued discussions regarding Hospice services. Time Spent: Greater than 30 Minutes
== END 2018-07-04 19:40 | disposition home health service (06) | DRG 175 ==
LOC: ER 16:13 → EH 21:33 → 3W 07-03 00:45
PROVIDERS: ADMIT Internal Medicine; ATTEND Internal Medicine
PROC: 3E0F73Z Introduction of Anti-inflammatory into Respiratory Tract, Via Natural or Artificial Opening (ICD-10-PCS; principal; 2018-07-03)
DX: I26.99 Other pulmonary embolism without acute cor pulmonale (principal); J96.01 Acute respiratory failure with hypoxia; G82.20 Paraplegia, unspecified; C79.51 Secondary malignant neoplasm of bone; Z66 Do not resuscitate; G89.3 Neoplasm related pain (acute) (chronic); C61 Malignant neoplasm of prostate; I25.10 Atherosclerotic heart disease of native coronary artery without angina pectoris; I11.0 Hypertensive heart disease with heart failure; I50.9 Heart failure, unspecified; I25.2 Old myocardial infarction; Z79.899 Other long term (current) drug therapy; Z95.1 Presence of aortocoronary bypass graft; Z87.891 Personal history of nicotine dependence; Z88.8 Allergy status to other drugs, medicaments and biological substances; Z99.81 Dependence on supplemental oxygen; Z82.49 Family history of ischemic heart disease and other diseases of the circulatory system
CPT/HCPCS: 36415; 71045; 71275; 80048; 80053; 82550; 82553; 82803; 84484; 85025; 85027; 93005; 93010; 94640; 94799; 96374; 96376; 99291; J1650; J2270; J2405; J3490; J7030; J7120; J7620

== ENCOUNTER → 2018-09-10 | Outpatient (CLI) | payer MEDICAID | LOC: RAD 08:01 | PROVIDERS: ATTEND Internal Medicine Hematology & Oncology | DX: C61 Malignant neoplasm of prostate (principal) | CPT/HCPCS: A9561 ==

== ENCOUNTER → 2018-10-03 | Outpatient (CLI) | payer MEDICAID ==
--- NOTE | 2018-10-03 16:20 | RADIOLOGY REPORT (SQ) ---
EXAM DESCRIPTION: CT CHEST WITH COMPLETED DATE/TIME: 10/03/2018 10:01 am REASON FOR STUDY: C61 MALIGNANT NEOPLASM OF PROSTATE C61 MALIGNANT NEOPLASM OF PROSTATE COMPARISON: 07/02/2018 TECHNIQUE: CT scan of the chest performed using helical scanning technique with dynamic intravenous contrast injection. Images reviewed with lung, soft tissue and bone windows. Reconstructed coronal and sagittal MPR and MIP images reviewed. All images stored on PACS. All CT scanners at this facility use dose modulation, iterative reconstruction, and/or weight based d osing when appropriate to reduce radiation dose to as low as reasonably achievable (ALARA). [facility]: Dose Right [facility]: CareDose [facility]: Dose Right [facility]: Teradose 4D [facility]: Impossible Software CONTRAST TYPE AND DOSE: contrast/concentration: Isovue 350.00 mg/ml; Total Contrast Delivered: 100.0 ml; Total Saline Delivered: 72.0 ml RENAL FUNCTION: GFR > 60. RADIATION DOSE: . LIMITATIONS: None. FINDINGS: LUNGS AND PLEURA: Pleural thickening in the lung bases posteriorly. Trace pleural effusio ns. Stable 10 mm pleural-based nodule posterior left apex image 20. HILAR AND MEDIASTINAL STRUCTURES: No identified masses or abnormal nodes. HEART AND VASCULAR STRUCTURES: No aneurysm or dissection. No central pulmonary emboli. No pericardi al effusion. HARDWARE: Defibrillator. UPPER ABDOMEN: See separate report of the CT of the abdomen. THYROID AND OTHER SOFT TISSUES: No masses. No adenopathy. BONES: Diffuse sclerotic and lytic lesions in the spine without pathologic fracture. Prior posterior decompression multiple levels. OTHER: No other significant finding. IMPRESSION: Bone metastasis. Stable left apical pulmonary nodule. No new nodules. TECHNICAL DOCUMENTATION: JOB ID: [id number] Quality ID # 436: Final reports with documentation of one or more dose reduction techniques (e.g., Au tomated exposure control, adjustment of the mA and/or kV according to patient size, use of iterative reconstruction technique) 2010 [employer]- All Rights Reserved Reading location - IP/workstation name: [email or web address]
--- NOTE | 2018-10-03 16:25 | RADIOLOGY REPORT (SQ) ---
EXAM DESCRIPTION: CT ABD/PELVIS WITH IV ORAL COMPLETED DATE/TIME: 10/03/2018 10:01 am REASON FOR STUDY: C61 MALIGNANT NEOPLASM OF PROSTATE C61 MALIGNANT NEOPLASM OF PROSTATE COMPARISON: None. TECHNIQUE: CT scan of the abdomen and pelvis performed with intravenous and oral contrast using jennifer lilian scanning technique with dynamic intravenous contrast injection. Images reviewed with lung, soft t issue, and bone windows. Reconstructed coronal and sagittal MPR images reviewed. Delayed images for e valuation of the urinary system also acquired. All images stored on PACS. All CT scanners at this facility use dose modulation, iterative reconstruction, and/or weight based d osing when appropriate to reduce radiation dose to as low as reasonably achievable (ALARA). [facility]: Dose Right [facility]: CareDose [facility]: Dose Right [facility]: Teradose 4D [facility]: Smart i[employer] CONTRAST TYPE AND DOSE: See separate report of the same date. RENAL FUNCTION: See separate report. RADIATION DOSE: CT Rad equipment meets quality standard of care and radiation dose reduction techniq ues were employed. CTDIvol: 11.6 - 18.8 mGy. DLP: 2434 mGy-cm. . LIMITATIONS: Artifact from lumbar fusion. FINDINGS: LOWER CHEST: See separate report of the CT of the chest. LIVER: Normal size. No masses. No dilated ducts. SPLEEN: Normal size. No focal lesions. PANCREAS: No masses. No significant calcifications. No adjacent inflammation or peripancreatic fluid collections. Pancreatic duct not dilated. GALLBLADDER: No identified stones by CT criteria. No inflammatory changes to suggest cholecystitis. ADRENAL GLANDS: No significant masses or asymmetry. RIGHT KIDNEY AND URETER: No solid masses. No significant calcifications. No hydronephrosis or hyd roureter. LEFT KIDNEY AND URETER: No solid masses. No significant calcifications. No hydronephrosis or hydr oureter. AORTA AND VESSELS: No aneurysm. RETROPERITONEUM: No retroperitoneal adenopathy, hemorrhage or masses. BOWEL AND PERITONEAL CAVITY: No obstruction. No visualized masses. No free fluid. No inflammatory ch anges or thickening of bowel wall. APPENDIX: Normal. PELVIS: No significant masses. Normal bladder. No free fluid. ABDOMINAL WALL: No masses. No hernias. BONES: Increase in number sclerotic and lytic lesions in the skeleton. Pathologic fracture of the ri ght sacrum, left acetabular roof and posterior left iliac crest. OTHER: No other significant finding. IMPRESSION: Progression of skeletal metastasis. Pathologic fractures as described above. TECHNICAL DOCUMENTATION: JOB ID: [id number] Quality ID # [id number]: Final reports with documentation of one or more dose reduction techniques (e.g., Au tomated exposure control, adjustment of the mA and/or kV according to patient size, use of iterative reconstruction technique) 2010 [employer]- All Rights Reserved Reading location - IP/workstation name: [email or web address] LICENSE [email or web address]
--- NOTE | 2018-10-03 16:53 | RADIOLOGY REPORT (SQ) ---
EXAM DESCRIPTION: NM WHOLE BODY BONE SCAN COMPLETED DATE/TIME: 10/03/2018 2:09 pm REASON FOR STUDY: C61 MALIGNANT NEOPLASM OF PROSTATE C61 MALIGNANT NEOPLASM OF PROSTATE COMPARISON: 01/08/2018 RADIONUCLIDE AND DOSE: 21.8 millicuries Tc99m HDP. The route of agent administration: Intravenous. ADDITIONAL DRUGS AND DOSES: None. TECHNIQUE: Routine delayed images at 3 hour post radionuclide injection acquired of the bony skeleto n including anterior and posterior whole-body projections and additional focused images as needed. LIMITATIONS: None. FINDINGS: BONES: More extensive uptake throughout the axial and appendicular skeleton, especially in the pelvis. KIDNEYS: Symmetric excretion without obstruction. OTHER: No other significant finding. IMPRESSION: Progression of skeletal metastasis. COMMENT: Quality measure 147: Current bone scan is compared with any available plain radiographs, p rior bone scans, and CT/MRI. TECHNICAL DOCUMENTATION: JOB ID: [id number] 2010 [employer]- All Rights Reserved Reading location - IP/workstation name: [email or web address]
== END ==
LOC: RAD 09:07
PROVIDERS: ATTEND Internal Medicine Hematology & Oncology
DX: C61 Malignant neoplasm of prostate (principal); C79.51 Secondary malignant neoplasm of bone
CPT/HCPCS: 82565; 78306; 71260; 74177; A9561; Q9969

== ENCOUNTER 2018-11-07 10:51 | Emergency (ER) | payer MEDICAID ==
[2018-11-07] MEDS ORDERED: HYDROMORPHONE HCL INJ/PF 2 MG/ML AMPULE IV ONE (11:25)
[2018-11-07 11:26] VITALS: BP 131/82
--- NOTE | 2018-11-07 11:27 | ER Document Report ---
Addendum entered and electronically signed by EVANS BLANDON NP 11/07/18 12:43: Course - Re-evaluation Re-evalutation: 11/07/18 12:43 Patient's preliminary Doppler study negative for DVT per Doppler software technician. - Vital Signs Vital signs: Temp Pulse Resp BP Pulse Ox 98.0 F 17 131/82 H 96 11/07/18 11:20 11/07/18 11:20 11/07/18 11:20 11/07/18 11:20 Original Note: ED Medical Screen (RME) - General Chief Complaint: Leg Pain Stated Complaint: LEG PAIN Time Seen by Provider: 11/07/18 11:16 Primary Care Provider: KHRIS CANTRELL MD [Primary Care Provider] - Follow up as needed Notes: Patient presents with a history of metastatic prostate cancer. Patient is presently a paraplegic due to a mass. Patient complains of right hip and leg pain. Patient reports occasional improvement of his discomfort when the leg is flexed. Patient denies any recent trauma. I have greeted and performed a rapid initial assessment of this patient. A comprehensive ED assessment and evaluation of the patient, analysis of test results and completion of the medical decision making process will be conducted by additional ED providers. TRAVEL OUTSIDE OF THE [place] IN LAST 30 DAYS: No - Related Data Allergies/Adverse Reactions: lisinopril Adverse Reaction (Verified 07/02/18 18:56) cough Past Medical History - Past Medical History Cardiac Medical History: Reports: Hx Congestive Heart Failure, Hx Coronary Artery Disease, Hx Heart Attack, Hx Hypercholesterolemia, Hx Hypertension Pulmonary Medical History: Denies: Hx Asthma, Hx Bronchitis, Hx COPD, Hx Pneumonia Neurological Medical History: Denies: Hx Cerebrovascular Accident, Hx Seizures Renal/ Medical History: Denies: Hx Peritoneal Dialysis Malignancy Medical History: Reports Hx Prostate Cancer - w/mets to bone. Tumor encroached on spinal cord subsequent paraplegia -2019 GI Medical History: Denies: Hx Gastroesophageal Reflux Disease Musculoskeltal Medical History: Denies Hx Arthritis Psychiatric Medical History: Reports: Hx Depression - situational Past Surgical History: Reports: Hx Cardiac Surgery - defib, Hx Coronary Artery Bypass Graft, Hx Open Heart Surgery - x 6 v - Immunizations Hx Diphtheria, Pertussis, Tetanus Vaccination: Yes Physical Exam - General Notes: Right hip and lower extremity pain. Patient with weakness to bilateral lower extremities Doctor's Discharge - Discharge Referrals: KHRIS CANTRELL MD [Primary Care Provider] - Follow up as needed
--- NOTE | 2018-11-07 12:38 | RADIOLOGY REPORT (SQ) ---
EXAM DESCRIPTION: HIP RIGHT AP/LATERAL COMPLETED DATE/TIME: 11/07/2018 12:15 pm REASON FOR STUDY: R hip, leg pain COMPARISON: None. NUMBER OF VIEWS: Two views. TECHNIQUE: AP pelvis and additional frog-leg view of the right hip. LIMITATIONS: None. FINDINGS: MINERALIZATION: Normal. RIGHT HIP: No fracture or dislocation. No contour deformity. No joint space narrowing. LEFT HIP: No fracture or dislocation. PUBIS AND ISCHIUM: No fracture. PELVIS: No fracture. SACRUM: No fracture or dislocation. No worrisome bone lesions. LOWER LUMBAR SPINE: No fracture or dislocation. Chronic degenerative changes and surgical changes wi th hardware. SOFT TISSUES: No findings. OTHER: Heterogenous sclerotic appearance throughout the visualized bony structures. IMPRESSION: DIFFUSE BONY METASTASES. NO FRACTURE OR OTHER ACUTE FINDINGS. TECHNICAL DOCUMENTATION: JOB ID: [id number] [employer]- All Rights Reserved Reading location - IP/workstation name: [email or web address]
[2018-11-07] MEDS ORDERED: HYDROMORPHONE HCL INJ/PF 2 MG/ML AMPULE IM ONE (13:27)
--- NOTE | 2018-11-07 16:06 | XCELERA REPORT ---
[address] [place] [facility] [address] Lower Extremity Venous Evaluation Procedure: Color flow and duplex imaging of the veins of the right lower extremity as well as the left Common Femoral vein. Right Sided Venous Evaluation Normal vessel filling wall to wall, compression and augmentation as well as Colour flow down to the infrageniculate veins. Left Sided Venous Evaluation The left common femoral vein is fully compressible. Spontaneous and phasic flow is present in the left common femoral vein. Interpretation Summary No duplex evidence of DVT or obstruction in the right lower extremity nor in the left Common Femoral vein. Name: JEANNINE VALLECILLO Akhil Age: 63 yrs Gender: Male : 1955 Patient Status: Emergency Patient Location: ER Study Date: 11/07/2018 12:24 PM Reason For Study: RLE pain Ordering Physician: EVANS BLANDON Performed By: Shiraz Holcomb : EVANS BLANDON > Farhat Cota
--- NOTE | 2018-11-09 10:38 | ER Document Report ---
Entered by ERICA AYALA SCRIBE 11/07/18 1311 Acting as scribe for:JEANNINE MORALES MD ED General - General Chief Complaint: Leg Pain Stated Complaint: LEG PAIN Time Seen by Provider: 11/07/18 11:16 Primary Care Provider: KHRIS CANTRELL MD [Primary Care Provider] - Follow up as needed Notes: Patient is a 63-year-old male with history of stage IV metastatic prostate cancer presenting to the emergency department complaining of hip pain. Patient states that the pain is a burning sensation that radiates down his right leg. Discovered in triage the patient does have metastatic disease to his right hip, with a negative Doppler. Patient is currently taking gabapentin 300 mg, oxycodone 10 mg as needed. Patient denies having any fevers, being ill recently, undergoing chemo. TRAVEL OUTSIDE OF THE [place] IN LAST 30 DAYS: No - Related Data Allergies/Adverse Reactions: lisinopril Adverse Reaction (Verified 11/07/18 11:27) cough Past Medical History - General Information source: Patient - Social History Smoking Status: Former Smoker Cigarette use (# per day): No Chew tobacco use (# tins/day): No Frequency of alcohol use: None Drug Abuse: None Family History: CAD Patient has suicidal ideation: No Patient has homicidal ideation: No - Past Medical History Cardiac Medical History: Reports: Hx Congestive Heart Failure, Hx Coronary Artery Disease, Hx Heart Attack, Hx Hypercholesterolemia, Hx Hypertension Malignancy Medical History: Reports Hx Prostate Cancer - w/mets to bone. Tumor encroached on spinal cord subsequent paraplegia -2019 Psychiatric Medical History: Reports: Hx Depression - situational Past Surgical History: Reports: Hx Cardiac Surgery - defib, Hx Coronary Artery Bypass Graft, Hx Open Heart Surgery - x 6 v - Immunizations Hx Diphtheria, Pertussis, Tetanus Vaccination: Yes Review of Systems - Review of Systems Constitutional: No symptoms reported. denies: Fever EENT: No symptoms reported Cardiovascular: No symptoms reported Respiratory: No symptoms reported Gastrointestinal: No symptoms reported Genitourinary: No symptoms reported Male Genitourinary: No symptoms reported Musculoskeletal: See HPI, Other - Right hip pain Skin: No symptoms reported Hematologic/Lymphatic: No symptoms reported Neurological/Psychological: No symptoms reported -: Yes All other systems reviewed and negative Physical Exam - Vital signs Vitals: Pulse Ox 96 11/07/18 11:18 - Notes Notes: Physical Exam: General: Alert, appears well. HEENT: Normocephalic. Atraumatic. PERRL. Extraocular movements intact. Oropharynx clear. Neck: Supple. Non-tender. Respiratory: No respiratory distress. Clear and equal breath sounds bilaterally. Cardiovascular: Regular rate and rhythm. Abdominal: Normal Inspection. Non-tender. No distension. Normal Bowel Sounds. Back: Non-tender. No deformity or step off. Extremities: Moves all four extremities. Upper extremities: Normal inspection. Normal ROM. Lower extremities: Normal inspection. No edema. Normal ROM. Neurological: Normal cognition. AAOx4. Normal speech. Psychological: Normal affect. Normal Mood. Skin: Warm. Dry. Normal color. Course - Re-evaluation Re-evalutation: 11/07/18 13:33 Patient shows metastatic disease to hips with a negative Doppler of right lower extremity. Patient well-appearing with stable vitals. Discussed increasing his gabapentin from 300 3 times daily to 600 3 times daily. We will also provide prescription of Robaxin if symptoms not improving the next 3 to 4 days to augment his gabapentin. He is to follow-up with his oncologist next week. - Vital Signs Vital signs: Temp Pulse Resp BP Pulse Ox 98.0 F 17 131/82 H 96 11/07/18 11:20 11/07/18 11:20 11/07/18 11:20 11/07/18 11:20 Discharge - Discharge Clinical Impression: Radiculopathy of leg, Prostate cancer metastatic to bone Disposition: HOME, SELF-CARE Instructions: Radiculopathy ([facility]) Additional Instructions: Please increase your Robaxin from 300 mg to 600 mg 3 times a day. A prescription for Robaxin was also provided in the next 3 to 5 days if symptoms are not improving please discuss with your oncologist and begin using this medication. Prescriptions: Methocarbamol [Robaxin 500 mg Tablet] 500 mg PO TID #30 tablet Referrals: KHRIS CANTRELL MD [Primary Care Provider] - Follow up as needed I personally performed the services described in the documentation, reviewed and edited the documentation which was dictated to the scribe in my presence, and it accurately records my words and actions.
== END 2018-11-07 15:30 | disposition home or self-care (01) ==
LOC: ER 10:51
DX: M54.10 Radiculopathy, site unspecified (principal); C61 Malignant neoplasm of prostate; C79.51 Secondary malignant neoplasm of bone; M25.551 Pain in right hip; I50.9 Heart failure, unspecified; E78.00 Pure hypercholesterolemia, unspecified; I11.0 Hypertensive heart disease with heart failure; Z87.891 Personal history of nicotine dependence; Z95.810 Presence of automatic (implantable) cardiac defibrillator; Z95.1 Presence of aortocoronary bypass graft; I25.2 Old myocardial infarction
CPT/HCPCS: 99285; 96372; 93971 ×2; 73502; J1170

== ENCOUNTER 2018-11-13 18:45 | Inpatient (IN) | payer MEDICAID ==
[2018-11-13] MEDS ORDERED: ACETAMINOPHEN 325 MG TABLET PO ONE (18:56)
[2018-11-13] MEDS: NORMAL SALINE 1000 ML 1,000 ML IV PRN ×2 (19:04→19:06)
[2018-11-13 19:09] LABS: VENOUS BLOOD BASE EXCESS -1.6 mmol/L; VENOUS BLOOD HCO3 25.1 mmol/L (20-32); VENOUS BLOOD PCO2 50.2 mmHg (35-63); VENOUS BLOOD PH 7.32 (7.30-7.42)
[2018-11-13 19:10] LABS: ABSOLUTE EOSINOPHILS # (AUTO) 0.2 10^3/uL (0.0-0.6); ABSOLUTE LYMPHOCYTES (AUTO) 1.4 10^3/uL (0.5-4.7); ABSOLUTE MONOCYTES (AUTO) 0.6 10^3/uL (0.1-1.4); ABSOLUTE NEUT (AUTO) 5.2 10^3/uL (1.7-8.2); BASOPHILS % (AUTO) 0.3 % (0-2); EOSINOPHILS % (AUTO) 3.1 % (0-6); HEMATOCRIT 23.8 % (37.9-51.0); LYMPHOCYTES % (AUTO) 18.7 % (13-45); MEAN CORPUSCULAR HEMOGLOBIN 29.5 pg (27.0-33.4); MEAN CORPUSCULAR HGB CONC 32.3 g/dL (32.0-36.0); MEAN CORPUSCULAR VOLUME 91 fl (80-97); MONOCYTES % (AUTO) 8.4 % (3-13); PLATELET COUNT 255 10^3/uL (150-450); RED BLOOD COUNT 2.61 10^6/uL (4.35-5.55); RED CELL DISTRIBUTION WIDTH 16.7 % (11.5-14.0); SEGMENTED NEUTROPHILS % (AUTO) 69.5 % (42-78); TOTAL CELLS COUNTED % (AUTO) 100 %; WHITE BLOOD COUNT 7.5 10^3/uL (4.0-10.5)
[2018-11-13 19:11] LABS: HEMOGLOBIN 7.7 g/dL (13.5-17.0)
[2018-11-13 19:15] LABS: INTERNATIONAL RATION (INR) 2.46; PROTHROMBIN TIME 27.1 SEC (11.4-15.4)
[2018-11-13 19:26] LABS: ALBUMIN 2.3 g/dL (3.5-5.0); ALKALINE PHOSPHATASE 567 U/L (38-126); ANION GAP 5 (5-19); ASPARTATE AMINO TRANSFERASE 24 U/L (17-59); BILIRUBIN,DIRECT 0.4 mg/dL (0.0-0.4); BILIRUBIN,TOTAL 0.6 mg/dL (0.2-1.3); BLOOD UREA NITROGEN 45 mg/dL (7-20); CARBON DIOXIDE 28 mmol/L (22-30); CHLORIDE 100 mmol/L (98-107); GLUCOSE 128 mg/dL (75-110); POTASSIUM 3.7 mmol/L (3.6-5.0); TOTAL PROTEIN 4.5 g/dL (6.3-8.2)
[2018-11-13 19:34] LABS: CALCIUM 4.9 mg/dL (8.4-10.2)
[2018-11-13] MEDS ORDERED: CALCIUM CHLORIDE 10% PF/INJ 1000 MG/10 ML SDV IV ONE (19:44)
--- NOTE | 2018-11-13 19:54 | RADIOLOGY REPORT (SQ) ---
EXAM DESCRIPTION: CHEST SINGLE VIEW COMPLETED DATE/TIME: 11/13/2018 7:31 pm REASON FOR STUDY: Fever COMPARISON: 07/02/2018 TECHNIQUE: Single frontal radiographic view of the chest acquired. NUMBER OF VIEWS: One view. LIMITATIONS: None. FINDINGS: LUNGS AND PLEURA: No pneumothorax. No consolidation or pleural effusion. MEDIASTINUM AND HILAR STRUCTURES: Stable. HEART AND VASCULAR STRUCTURES: Stable. BONES: No acute findings. HARDWARE: Cardiac defibrillator. CABG. Right chest port. OTHER: No other significant finding. IMPRESSION: NO ACUTE FINDINGS. TECHNICAL DOCUMENTATION: JOB ID: [id number] [place]-72 2010 [employer]- All Rights Reserved Reading location - IP/workstation name: [email or web address]
--- NOTE | 2018-11-13 20:37 | EKG REPORT ---
SEVERITY:- DEFECTIVE ECG - SINUS TACHYCARDIA VENTRICULAR BIGEMINY ABNRM R PROG, CONSIDER ASMI OR LEAD PLACEMENT NONSPECIFIC T ABNORMALITIES, LATERAL LEADS BASELINE ARTIFACTS.REPEAT EKG : Confirmed by: Fany Preston MD 13-Nov-2018 20:36:42
[2018-11-13] MEDS ORDERED: CALCIUM GLUCONATE 1000 MG/10 ML INJ IV ONE (20:40)
[2018-11-13] MEDS ORDERED: CEFEPIME 2 GM/D5W RTU 2 GM/50 ML RTUPB IV ONE (20:42)
[2018-11-13] MEDS ORDERED: NORMAL SALINE 250 ML IV PRN (21:48)
--- NOTE | 2018-11-13 21:53 | ER Document Report ---
ED General - General Chief Complaint: Weakness Stated Complaint: WEAKNESS Time Seen by Provider: 11/13/18 18:56 Primary Care Provider: KHRIS CANTRELL MD [Primary Care Provider] - Follow up as needed TRAVEL OUTSIDE OF THE [place] IN LAST 30 DAYS: No - HPI Notes: Patient is a 63-year-old male with a history of metastatic prostate cancer, with metastasis to the spine and resultant paraplegia, who presents to the emergency department for evaluation of abnormal vital signs, altered mental status. Patient is not very forthcoming historian. Patient's son and fianc are off for the great majority of information. Evidently over the last several days he has been acting more confused. He has been cold all the time, asking that the air conditioning be turned off. During a period of respite, a nurse's aide was present with the patient today. Vital signs were taken and he was found to be significantly hypotensive, as well as tachycardic. EMS arrived and found the patient's temperature to be 100.6. He was administered Tylenol and transported here for further evaluation. The patient denies any pain to me at this time. Patient's family notes that he is really not eating or drinking much. He is currently on Zytiga, which according the family and oncology is a last resort for his cancer. - Related Data Allergies/Adverse Reactions: lisinopril Adverse Reaction (Verified 11/07/18 11:27) cough Past Medical History - General Information source: Patient, Relative - Social History Smoking Status: Former Smoker Family History: CAD Patient has suicidal ideation: No Patient has homicidal ideation: No - Past Medical History Cardiac Medical History: Reports: Hx Congestive Heart Failure, Hx Coronary Artery Disease, Hx DVT, Hx Heart Attack, Hx Hypercholesterolemia, Hx Hypertension, Hx Pulmonary Embolism Pulmonary Medical History: Denies: Hx Asthma, Hx Bronchitis, Hx COPD, Hx Pneumonia Neurological Medical History: Reports: Other - Paraplegia. Denies: Hx Cerebrovascular Accident, Hx Seizures Renal/ Medical History: Denies: Hx Peritoneal Dialysis Malignancy Medical History: Reports Hx Prostate Cancer - w/mets to bone. Tumor encroached on spinal cord subsequent paraplegia -2019 GI Medical History: Denies: Hx Gastroesophageal Reflux Disease Musculoskeletal Medical History: Denies Hx Arthritis Psychiatric Medical History: Reports: Hx Depression - situational Past Surgical History: Reports: Hx Cardiac Surgery - defib, Hx Coronary Artery Bypass Graft, Hx Open Heart Surgery - x 6 v - Immunizations Hx Diphtheria, Pertussis, Tetanus Vaccination: Yes Review of Systems - Review of Systems Constitutional: See HPI EENT: No symptoms reported Cardiovascular: See HPI Respiratory: No symptoms reported Gastrointestinal: See HPI Genitourinary: No symptoms reported Musculoskeletal: No symptoms reported Skin: No symptoms reported Neurological/Psychological: See HPI Physical Exam - Vital signs Vitals: Resp BP 15 76/54 L 11/13/18 18:48 11/13/18 18:48 - Notes Notes: This is a 63-year-old male who appears his stated age in no acute distress. He is frail in appearance, lying in the hospital bed. He is very pale. Pupils are equal round, reactive to light. Oral mucosa is moist. Heart is regular rate and rhythm, lungs are clear to oscillation bilaterally. Abdomen is soft, nontender, normoactive bowel sounds. Calves are nontender, peripheral pulses are equal. No cyanosis or clubbing. Patient is awake and alert. He has sensory and motor deficits corresponding with his paraplegia from metastatic involvement. Course - Re-evaluation Re-evalutation: 11/13/18 22:19 Patient presents to the emergency department for evaluation. On arrival he was found to be markedly tachycardic and hypotensive. He was afebrile here, but an elevated temperature was treated in route by EMS. A septic work-up was initiated. I did speak with the patient in regards to his advanced directives. He does wish to be a DNR, but he is not ready for comfort measures at this time. He was given aggressive IV fluid resuscitation. His blood pressure and heart rate did respond. Given his vital signs and elevated temperature prior to arrival, he meets sepsis criteria. He is given IV cefepime. I am still awaiting urinalysis. His calcium was found to be markedly low. Calcium gluconate was ordered IV as well. I had extensive conversation with the patient, the patient's son, who is M POA, the patient's [id number]. I also discussed findings with the patient's fianc. I am concerned that his current status is very serious, and this was communicated to family. They voiced understanding. I spoke with Dr. Anna, on-call internal medicine physician, he will admit the patient for further care. - Vital Signs Vital signs: Temp Pulse Resp BP Pulse Ox 98.6 F 16 91/56 L 97 11/13/18 19:20 11/13/18 21:36 11/13/18 21:36 11/13/18 21:36 - Laboratory Result Diagrams: 11/13/18 18:50 11/13/18 18:50 Laboratory results interpreted by me: 11/13/18 11/13/18 11/13/18 18:50 18:50 18:50 RBC 2.61 L Hgb 7.7 L Hct 23.8 L RDW 16.7 H PT 27.1 H Sodium 133.2 L BUN 45 H Glucose 128 H Calcium 4.9 L* Magnesium 2.4 H Alkaline Phosphatase 567 H Total Protein 4.5 L Albumin 2.3 L Crossmatch 11/13/18 18:50 RBC Hgb Hct RDW PT Sodium BUN Glucose Calcium Magnesium Alkaline Phosphatase Total Protein Albumin Crossmatch See Detail - Diagnostic Test Radiology reviewed: Reports reviewed Radiology results interpreted by me: 11/13/18 22:19 Chest X-Ray 11/13/18 18:56 IMPRESSION: NO ACUTE FINDINGS. - EKG Interpretation by Me Additional EKG results interpreted by me: 11/13/18 22:19 Sinus tachycardia with a rate of 117 bpm. Frequent PVCs/borderline bigeminy. Normal axis, IVCD. Nonspecific ST changes, but no acute changes concerning for acute infarction. No significant change, with the exception of the bigeminy, when compared to prior study. Critical Care Note - Critical Care Note Total time excluding time spent on procedures (mins): 40 Discharge - Discharge Clinical Impression: Prostate cancer metastatic to bone, Hypocalcemia Sepsis Qualifiers: Sepsis type: sepsis due to unspecified organism Sepsis acute organ dysfunction status: unspecified Qualified Code(s): A41.9 - Sepsis, unspecified organism Hypotension Qualifiers: Hypotension type: unspecified hypotension type Qualified Code(s): I95.9 - Hypotension, unspecified Altered mental status Qualifiers: Altered mental status type: unspecified Qualified Code(s): R41.82 - Altered mental status, unspecified Condition: Serious Disposition: ADMITTED INPATIENT Admitting Provider: Shoshana (Hospitalist) Unit Admitted: IMCU Referrals: KHRIS CANTRELL MD [Primary Care Provider] - Follow up as needed
[2018-11-13] MEDS ORDERED: MEROPENEM 1 GM VIAL IV PRN (23:45)
[2018-11-13] MEDS ORDERED: MAGNESIUM HYDROXIDE SUSP 30 ML UDCUP PO PRN (23:52)
[2018-11-13] MEDS ORDERED: RINGERS SOLUTION,LACTATED 1,000 ML IV PRN (23:52)
[2018-11-13] MEDS ORDERED: MAG HYDROX/AL HYDROX/SIMETH SUSP 30 ML UDCUP PO PRN (23:52)
[2018-11-13] MEDS ORDERED: LEVALBUTEROL HCL NEB 0.63 MG/3 ML AMPUL NEB PRN (23:52)
[2018-11-14] MEDS ORDERED: VANCOMYCIN HCL INJ 1000 MG VIAL IV SCH
[2018-11-14] MEDS ORDERED: IBUPROFEN 800 MG TABLET PO PRN (00:04)
[2018-11-14] MEDS ORDERED: ACETAMINOPHEN 325 MG TABLET PO PRN (00:04)
[2018-11-14] MEDS ORDERED: ACETAMINOPHEN 650 MG SUPP.RECT PR PRN (00:04)
[2018-11-14] MEDS ORDERED: MORPHINE SULFATE 10 MG/ML INJ IV PRN ×2 (00:04→00:14)
[2018-11-14] MEDS ORDERED: NORMAL SALINE 1000 ML 1,000 ML IV ONE (00:09)
[2018-11-14] MEDS ORDERED: VANCOMYCIN HCL INJ 1000 MG VIAL IV PRN (00:18)
[2018-11-14] MEDS: IPRATROPIUM BROMIDE 0.02% NEB 0.5 MG/2.5 ML AMPUL NEB SCH ×3 (00:42→16:33)
[2018-11-14] MEDS: LEVALBUTEROL HCL NEB 1.25 MG/3 ML AMPUL NEB SCH ×3 (00:42→16:33)
[2018-11-14] MEDS: PROMETHAZINE HCL INJ 25 MG/1 ML VIAL IV PRN ×2 (00:50→05:36)
[2018-11-14] MEDS: MORPHINE SULFATE 10 MG/ML INJ IV PRN ×3 (00:51→21:37)
[2018-11-14] MEDS ORDERED: MEROPENEM 1 GM VIAL ONE (02:50)
[2018-11-14] MEDS ORDERED: VANCOMYCIN HCL 1,500 MG in DEXTROSE 5%-WATER 250 ML IV ONE (03:00)
[2018-11-14] MEDS: MEROPENEM 1 GM in NORMAL SALINE 50 ML IV SCH ×3 (03:10→17:53)
[2018-11-14] MEDS ORDERED: DOPAMINE HCL/DEXTROSE 5%-WATER 800 MG/250 ML RTUINJ IV PRN (03:24)
[2018-11-14 05:05] LABS: AMORPHOUS SEDIMENT,URINE TRACE /HPF; APPEARANCE,URINE CLOUDY; BILIRUBIN,URINE NEGATIVE (NEGATIVE); COLOR,URINE DARK YELLOW; GLUCOSE, URINE NEGATIVE (NEGATIVE); KETONES,URINE NEGATIVE (NEGATIVE); LEUKOCYTE ESTERASE,URINE NEGATIVE (NEGATIVE); NITRITE,URINE NEGATIVE (NEGATIVE); PROTEIN,URINE NEGATIVE (NEGATIVE); URINE SPECIFIC GRAVITY 1.016; UROBILINOGEN,URINE NEGATIVE mg/dL (<2.0)
--- NOTE | 2018-11-14 06:16 | PDOC H&P ---
History of Present Illness Admission Date/PCP: 11/13/2018 22:44 KHRIS CANTRELL MD Patient complains of: AMS History of Present Illness: BIRD VALLECILLO is a 63 year old male who presented to the emergency room with a four-day history of altered mental status (lethargy and confusion). The patient and his significant other relate that for the last 4 days he has been increasingly confused and lethargic. He has been noted to have a decreased appetite and poor oral intake of fluids, additionally he has complained of feeling cold (possible chills) and has required them to turn off the air co nditioner in order to make him comfortable. They deny prior similar episodes and have not identified any aggravating or ameliorating factors for his lethargy and confusion. Patient was seen by his nurses aide today and was found to be hypotensive and tachycardic resulting in EMS coming to the home. EMS found the patient to have a temperature of 100.6 F and administered acetaminophen. They also found the patient to have a blood pressure of 70's systolic and initiated transport to the emergency room. In the ER he was found to be hypotensive and tachycardic both of which responded to administration of IV fluids. No obvious source of infection was found although it was noted that the patient is on oral chemotherapy (Zytiga) for his stage IV metastatic prostate carcinoma. The patient will be DNR status and will be admitted for further evaluation. 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 Denies: Hemorrhagic CVA, Ischemic CVA, Seizures Endocrine Medical History: Reports: Obesity Denies: Diabetes Mellitus Type 1, Diabetes Mellitus Type 2, Hyperthyroidism, Hypothyroidism Renal/ Medical History: Reports: Other - Stage IV metastatic prostatic carcinoma Denies: Chronic Kidney Disease, Nephrolithiasis Malignancy Medical History: Reports: Other - Prostate cancer with metastasis GI Medical History: Denies: Cirrhosis, Crohn's Disease, Gastroesophageal Reflux Disease, Hepatitis, Ulcerative Colitis Musculoskeltal Medical History: Denies: Arthritis, Gout Psychiatric Medical History: Reports: Depression - situational, Tobacco Dependency Denies: Alcohol Dependency, Substance Abuse Traumatic Medical History: Reports: None Hematology: Denies: Anemia, Bleeding Tendencies Infectious Medical History: Reports: None Past Surgical History Past Surgical History: Reports: Cardiac Catheterization, Coronary Artery Bypass Graft Social History Information Source: Patient, Relative Lives with: Spouse/Significant other Smoking Status: Former Smoker Frequency of Alcohol Use: None Hx Recreational Drug Use: No Drugs: None Hx Prescription Drug Abuse: No - Advance Directive Resuscitation Status: Do Not Resuscitate Surrogate healthcare decision maker:: Bird Vallecillo Family History Family History: CAD Parental Family History Reviewed: Yes Children Family History Reviewed: No Sibling(s) Family History Reviewed.: Yes Medication/Allergy Home Medications: Oxycodone HCl/Acetaminophen [Percocet 10-325 mg Tablet] 1 tab PO Q8HP PRN 01/02/18 Enzalutamide [Xtandi] 160 mg PO DAILY 06/23/18 Loperamide HCl [Imodium A-D] 2 mg PO PRN PRN 06/23/18 Polyethylene Glycol 3350 [Miralax Powder 17 gm/Packet] 1 packet PO DAILY 06/23/18 Sennosides [Senna] 8.6 mg PO QPM 06/23/18 Bisacodyl [Dulcolax 10 mg Supp.rect] 10 mg [place] DAILYP PRN #30 supp.rect 07/01/18 Dexamethasone [Decadron 4 mg Tablet] 4 mg PO Q8 #90 tablet 07/01/18 Fluticasone/Salmeterol [Advair 250-50 Diskus 14 Dose/Diskus] 1 puff IH Q12 #1 inhaler 07/01/18 Furosemide [Lasix 40 mg Tablet] 40 mg PO DAILY #30 tablet 07/01/18 Gabapentin [Neurontin 300 mg Capsule] 900 mg PO Q8 #120 capsule 07/01/18 Morphine Sulfate [Ms-Contin Sr 15 mg Tablet] 15 mg PO Q12 #20 tablet.sa 07/01/18 Nebivolol HCl [Bystolic 2.5 mg Tablet] 2.5 mg PO DAILY #30 tablet 07/01/18 Ondansetron [Zofran Odt 4 mg Tablet] 4 mg PO Q8HP PRN #30 tab.rapdis 07/01/18 Pantoprazole Sodium [Protonix [address] Tablet] 40 mg PO QAM #30 tablet.dr 07/01/18 Simvastatin [Zocor 10 mg Tablet] 10 mg PO QHS #30 tablet 07/01/18 Valsartan [Diovan 80 mg Tablet] 80 mg PO DAILY #30 tablet 07/01/18 Acetaminophen [Tylenol 325 mg Tablet] 650 mg PO Q4HP PRN tablet 07/04/18 Albuterol Sulfate [Proair Hfa Inhalation Aerosol 8.5 gm Mdi] 1 puff IH Q4HP PRN #1 mdi 07/04/18 Docusate Sodium [Colace 100 mg Capsule] 100 mg PO BID capsule 07/04/18 Nystatin [Mycostatin 500,000 Unit/5 ml Susp Udcup] 500,000 unit PO Q4HP PRN #120 udc 07/04/18 Rivaroxaban [Xarelto 15 mg Tablet] 15 mg PO BID #42 tablet 07/04/18 Rivaroxaban [Xarelto] 20 mg PO DAILY #30 tablet 07/04/18 Methocarbamol [Robaxin 500 mg Tablet] 500 mg PO TID #30 tablet 11/07/18 Allergies/Adverse Reactions: lisinopril Adverse Reaction (Verified 11/07/18 11:27) cough Review of Systems Constitutional: PRESENT: as per HPI, anorexia, chills, fatigue - Lethargy, fever(s) Eyes: ABSENT: visual disturbances, other - Eye pain Ears: ABSENT: hearing changes, other - Ear pain Nose, Mouth, and Throat: ABSENT: mouth pain, sore throat Cardiovascular: ABSENT: chest pain, palpitations Respiratory: ABSENT: cough, dyspnea Gastrointestinal: ABSENT: abdominal pain, constipation, diarrhea, nausea, vomiting Genitourinary: ABSENT: dysuria, hematuria Musculoskeletal: ABSENT: back pain, joint swelling Integumentary: ABSENT: pruritus, rash Neurological: PRESENT: as per HPI, confusion. ABSENT: convulsions, focal weakness, memory loss, syncope Psychiatric: ABSENT: anxiety, depression Endocrine: PRESENT: as per HPI, cold intolerance. ABSENT: heat intolerance Hematologic/Lymphatic: ABSENT: easy bleeding, easy bruising Allergic/Immunologic: ABSENT: seasonal rhinorrhea Physical Exam Vital Signs: Temp Pulse Resp BP Pulse Ox 98.6 F 16 91/56 L 97 11/13/18 19:20 11/13/18 21:36 11/13/18 21:36 11/13/18 21:36 Intake & Output 11/11/18 11/12/18 11/13/18 23:59 23:59 23:59 Intake Total 1999 Balance 1999 Weight 94.6 kg General appearance: PRESENT: no acute distress, cooperative Head exam: PRESENT: atraumatic, normocephalic Eye exam: PRESENT: conjunctiva pink. ABSENT: conjunctival injection, scleral icterus Ear exam: PRESENT: normal external ear exam. ABSENT: bleeding, drainage Mouth exam: PRESENT: dry mucosa, neck supple Neck exam: ABSENT: JVD, thyromegaly, tracheal deviation Respiratory exam: PRESENT: clear to auscultation ana, symmetrical, unlabored Cardiovascular exam: PRESENT: RRR, tachycardia. ABSENT: clicks, gallop, rubs Pulses: PRESENT: normal radial pulses, normal dorsalis pedis pul Vascular exam: ABSENT: normal capillary refill - Capillary refill delayed at 3 to 4 seconds, pallor GI/Abdominal exam: PRESENT: normal bowel sounds, soft Rectal exam: PRESENT: deferred Extremities exam: ABSENT: joint swelling, pedal edema, tenderness Musculoskeletal exam: PRESENT: other - Paraplegia of the lower extremities noted. ABSENT: deformity, dislocation Neurological exam: PRESENT: altered - Slightly drowsy and lethargic with mild confusion, oriented to person, oriented to place, oriented to time, CN II-XII grossly intact, motor sensory deficit - Paraplegia of bilateral lower extremities Psychiatric exam: PRESENT: depressed, flat affect Skin exam: PRESENT: dry, intact, warm. ABSENT: jaundice, rash, urticaria Results Laboratory Results: 11/13/18 18:50 11/13/18 18:50 11/13/18 11/13/18 11/13/18 18:50 18:50 18:50 WBC 7.5 RBC 2.61 L Hgb 7.7 L Hct 23.8 L MCV 91 MCH 29.5 MCHC 32.3 RDW 16.7 H Plt Count 255 Seg Neutrophils % 69.5 VBG pH VBG pCO2 VBG HCO3 VBG Base Excess Sodium 133.2 L Potassium 3.7 Chloride 100 Carbon Dioxide 28 Anion Gap 5 BUN 45 H Creatinine 0.96 Est GFR ( Amer) > 60 Glucose 128 H Lactic Acid 1.4 Calcium 4.9 L* Magnesium 2.4 H Total Bilirubin 0.6 AST 24 Alkaline Phosphatase 567 H Total Protein 4.5 L Albumin 2.3 L Blood Type Antibody Screen 11/13/18 11/13/18 18:50 18:50 WBC RBC Hgb Hct MCV MCH MCHC RDW Plt Count Seg Neutrophils % VBG pH 7.32 VBG pCO2 50.2 VBG HCO3 25.1 VBG Base Excess -1.6 Sodium Potassium Chloride Carbon Dioxide Anion Gap BUN Creatinine Est GFR ( Amer) Glucose Lactic Acid Calcium Magnesium Total Bilirubin AST Alkaline Phosphatase Total Protein Albumin Blood Type A POSITIVE Antibody Screen NEGATIVE Impressions: Chest X-Ray 11/13/18 18:56 IMPRESSION: NO ACUTE FINDINGS. Assessment and Plan - Diagnosis (1) SIRS (systemic inflammatory response syndrome) Is this a current diagnosis for this admission?: Yes Plan: Blood and urine cultures will be obtained. Patient will be treated empirically with intravenous antibiotics utilizing a broad-spectrum agent such as meropenem while awaiting results of the cultures. Patient did have an elevated temperature at home and has been hypotensive and tachycardic. He will be obs erved for any further changes as well as improvement in status. Serial lactic acids will be obtained. (2) Coronary artery disease Qualifiers: Coronary Disease-Associated Artery/Lesion type: [place] artery [place] vs. transplanted heart: [place] heart Associated angina: without angina Qualified Code(s): I25.10 - Atherosclerotic heart disease of [place] coronary artery without angina pectoris Is this a current diagnosis for this admission?: Yes Plan: Patient will be observed for any changes in his cardiac status throughout his hospital course. He will be continued on his usual cardiac medications as practical when his blood pressure and heart rate have improved. (3) COPD (chronic obstructive pulmonary disease) Qualifiers: Chronic bronchitis type: unspecified Is this a current diagnosis for this admission?: Yes Plan: Patient be continued on his usual treatment for COPD. His O2 sat will be followed on a regular basis throughout his hospital course. (4) Prostate cancer metastatic to bone Is this a current diagnosis for this admission?: Yes Plan: Patient will be continued on his current oral chemotherapy. Daily CBCs, metabolic profiles, ionized calcium and magnesium levels will be obtained. (5) Tachycardia Is this a current diagnosis for this admission?: Yes Plan: Patient be treated with IV fluids for initial therapy of his tachycardia and hypotension. Response to treatment will be observed and further intervention will be based upon his initial responses. (6) Hypotension Qualifiers: Hypotension type: unspecified hypotension type Qualified Code(s): I95.9 - Hypotension, unspecified Is this a current diagnosis for this admission?: Yes Plan: Patient be treated with IV fluids for initial therapy of his tachycardia and hypotension. Response to treatment will be observed and further intervention will be based upon his initial responses. (7) Altered mental status Qualifiers: Altered mental status type: unspecified Qualified Code(s): R41.82 - Altered mental status, unspecified Is this a current diagnosis for this admission?: Yes Plan: Patient's mental status to be followed closely throughout his hospital course with every 4 hours neurochecks. Further evaluation be entertained as required. - Time Time Spent with patient: 25-34 minutes Medications reviewed and adjusted accordingly: Yes Anticipated discharge: Home, Hospice - Inpatient Certification Based on my medical assessment, after consideration of the patient's comorbidities, presenting symptoms, or acuity I expect that the services needed warrant INPATIENT care.: Yes I certify that my determination is in accordance with my understanding of Medicare's requirements for reasonable and necessary INPATIENT services [42 CFR 412.3e].: Yes Medical Necessity: Significant Comorbidiites Make Outpatient Treatment Too Risky, Need Close Monitoring Due to Risk of Patient Decompensation, Need For IV Fluids, Need For Continuous Telemetry Monitoring, Need for Neurological Checks, Need for IV Antibiotics, Risk of Complication if Not Cared For in Hospital, Risk of Diagnosis Which Will Require Inpatient Eval/Care/Monitoring
[2018-11-14] MEDS: PANTOPRAZOLE SODIUM 40 MG TABLET.DR PO SCH ×2 (06:36→17:23)
[2018-11-14] MEDS ORDERED: BUDESONIDE NEB 0.5 MG/2 ML AMPUL NEB SCH (08:00)
[2018-11-14] MEDS: DOCUSATE SODIUM 100 MG CAPSULE PO SCH ×2 (10:07→17:23)
[2018-11-14] MEDS ORDERED: NORMAL SALINE 1000 ML 1,000 ML IV PRN (10:11)
--- NOTE | 2018-11-14 10:27 | Progress Note Acknowledgement ---
Progress Note Acknowledgement Progess Note Acknowledgement: I, the undersigned member of the medical staff with appropriate privileges and with supervisory authority over [Bird Phillips], a dependent practice allied health professional, acknowledge that I have reviewed the progress notes entered on this patient, and in my professional judgment believe that the assessment made and/or any care evidenced was appropriate
--- NOTE | 2018-11-14 10:36 | PDOC PROGRESS REPORT ---
Subjective Progress Note for:: 11/14/18 Subjective:: November 14, 2018-chills Reason For Visit: AMS,SIRS Physical Exam Vital Signs: Temp Pulse Resp BP Pulse Ox 98.0 F 125 H 20 141/82 H 97 11/14/18 09:57 11/14/18 09:57 11/14/18 09:57 11/14/18 09:57 11/14/18 09:57 Intake & Output 11/13/18 11/14/18 11/15/18 06:59 06:59 06:59 Intake Total 3400 1650 Balance 3400 1650 Weight 95.6 kg General appearance: PRESENT: no acute distress, well-developed, well-nourished Neck exam: ABSENT: carotid bruit, JVD, lymphadenopathy, thyromegaly Respiratory exam: PRESENT: decreased breath sounds, tachypnea, unlabored Cardiovascular exam: PRESENT: RRR. ABSENT: diastolic murmur, rubs, systolic murmur Pulses: PRESENT: normal dorsalis pedis pul Vascular exam: PRESENT: normal capillary refill GI/Abdominal exam: PRESENT: normal bowel sounds, soft. ABSENT: distended, guarding, mass, organolmegaly, rebound, tenderness Extremities exam: PRESENT: full ROM. ABSENT: calf tenderness, clubbing, pedal edema Neurological exam: PRESENT: alert, awake, oriented to person, oriented to place, oriented to time, oriented to situation, CN II-XII grossly intact. ABSENT: motor sensory deficit Psychiatric exam: PRESENT: appropriate affect, normal mood. ABSENT: homicidal ideation, suicidal ideation Skin exam: PRESENT: pallor Results Laboratory Results: 11/13/18 18:50 11/13/18 18:50 11/13/18 11/13/18 11/13/18 18:50 18:50 18:50 WBC 7.5 RBC 2.61 L Hgb 7.7 L Hct 23.8 L MCV 91 MCH 29.5 MCHC 32.3 RDW 16.7 H Plt Count 255 Seg Neutrophils % 69.5 VBG pH VBG pCO2 VBG HCO3 VBG Base Excess Sodium 133.2 L Potassium 3.7 Chloride 100 Carbon Dioxide 28 Anion Gap 5 BUN 45 H Creatinine 0.96 Est GFR ( Amer) > 60 Glucose 128 H Lactic Acid 1.4 Calcium 4.9 L* Ionized Calcium Rafiq Magnesium 2.4 H Total Bilirubin 0.6 AST 24 Alkaline Phosphatase 567 H Total Protein 4.5 L Albumin 2.3 L Free T3 pg/mL Urine Color Urine Appearance Urine pH Ur Specific [place] Urine Protein Urine Glucose (UA) Urine Ketones Urine Blood Urine Nitrite Ur Leukocyte Esterase Urine WBC (Auto) Urine RBC (Auto) Blood Type Antibody Screen 11/13/18 11/13/18 11/13/18 18:50 18:50 18:50 WBC RBC Hgb Hct MCV MCH MCHC RDW Plt Count Seg Neutrophils % VBG pH 7.32 VBG pCO2 50.2 VBG HCO3 25.1 VBG Base Excess -1.6 Sodium Potassium Chloride Carbon Dioxide Anion Gap BUN Creatinine Est GFR ( Amer) Glucose Lactic Acid Calcium Ionized Calcium Rafiq Magnesium Total Bilirubin AST Alkaline Phosphatase Total Protein Albumin Free T3 pg/mL 3.52 Urine Color Urine Appearance Urine pH Ur Specific [place] Urine Protein Urine Glucose (UA) Urine Ketones Urine Blood Urine Nitrite Ur Leukocyte Esterase Urine WBC (Auto) Urine RBC (Auto) Blood Type A POSITIVE Antibody Screen NEGATIVE 11/14/18 11/14/18 01:00 04:30 WBC RBC Hgb Hct MCV MCH MCHC RDW Plt Count Seg Neutrophils % VBG pH VBG pCO2 VBG HCO3 VBG Base Excess Sodium Potassium Chloride Carbon Dioxide Anion Gap BUN Creatinine Est GFR ( Amer) Glucose Lactic Acid Calcium Ionized Calcium Rafiq 0.76 L Magnesium Total Bilirubin AST Alkaline Phosphatase Total Protein Albumin Free T3 pg/mL Urine Color DARK YELLOW Urine Appearance CLOUDY Urine pH 5.0 Ur Specific [place] 1.016 Urine Protein NEGATIVE Urine Glucose (UA) NEGATIVE Urine Ketones NEGATIVE Urine Blood NEGATIVE Urine Nitrite NEGATIVE Ur Leukocyte Esterase NEGATIVE Urine WBC (Auto) 7 Urine RBC (Auto) 4 Blood Type Antibody Screen Impressions: Chest X-Ray 11/13/18 18:56 IMPRESSION: NO ACUTE FINDINGS. Assessment and Plan - Diagnosis (1) SIRS (systemic inflammatory response syndrome) Is this a current diagnosis for this admission?: Yes Plan: Blood and urine cultures will be obtained. Patient will be treated empirically with intravenous antibiotics utilizing a broad-spectrum agent such as meropenem while awaiting results of the cultures. Patient did have an elevated temperature at home and has been hypotensive and tachycardic. He will be observed for any further changes as well as improvement in status. Serial lactic acids will be obtained. November 14, 2018-improved. No fever at this time blood pressure is stable. Patient does still have a little tachycardia could be volume dependent patient is getting 2 units packed cells and will continue with IV hydration. (2) Coronary artery disease Qualifiers: Coronary Disease-Associated Artery/Lesion type: [place] artery [place] vs. transplanted heart: [place] heart Associated angina: without angina Qualified Code(s): I25.10 - Atherosclerotic heart disease of [place] coronary artery without angina pectoris Is this a current diagnosis for this admission?: Yes Plan: Patient will be observed for any changes in his cardiac status throughout his hospital course. He will be continued on his usual cardiac medications as practical when his blood pressure and heart rate have improved. November 14, 2018-continue to monitor with telemetry. Blood pressure normalized at this time. Will DC IV dopamine as this could be having a negative effect on his heart rate. (3) COPD (chronic obstructive pulmonary disease) Qualifiers: Chronic bronchitis type: unspecified Is this a current diagnosis for this admission?: Yes Plan: Patient be continued on his usual treatment for COPD. His O2 sat will be followed on a regular basis throughout his hospital course. November 14, 2018-continue with home COPD treatment. O2 per protocol. (4) Prostate cancer metastatic to bone Is this a current diagnosis for this admission?: Yes Plan: Patient will be continued on his current oral chemotherapy. Daily CBCs, metabolic profiles, ionized calcium and magnesium levels will be obtained. November 14, 2018-continue oral chemotherapy. Continue to follow CBCs and chemistry panels. Patient did have a low magnesium on admission and repeating that at this time. (5) Tachycardia Is this a current diagnosis for this admission?: Yes Plan: Patient be treated with IV fluids for initial therapy of his tachycardia and hypotension. Response to treatment will be observed and further intervention will be based upon his initial responses. November 14, 2018-continue IV hydration, DC dopamine at this time as blood pressure is normalized and this could be adding to tachycardia. (6) Hypotension Qualifiers: Hypotension type: unspecified hypotension type Qualified Code(s): I95.9 - Hypotension, unspecified Is this a current diagnosis for this admission?: Yes Plan: Patient be treated with IV fluids for initial therapy of his tachycardia and hypotension. Response to treatment will be observed and further intervention will be based upon his initial responses. November 14, 2018-resolved continue to follow (7) Altered mental status Qualifiers: Altered mental status type: unspecified Qualified Code(s): R41.82 - Altered mental status, unspecified Is this a current diagnosis for this admission?: Yes Plan: Patient's mental status to be followed closely throughout his hospital course with every 4 hours neurochecks. Further evaluation be entertained as required. November 14, 2018-resolved at this time patient is answering questions appropriately. - Time Time Spent with patient: 15-24 minutes - Inpatient Certification Based on my medical assessment, after consideration of the patient's comorbidities, presenting symptoms, or acuity I expect that the services needed warrant INPATIENT care.: Yes I certify that my determination is in accordance with my understanding of Medic are's requirements for reasonable and necessary INPATIENT services [42 CFR 412.3e].: Yes Medical Necessity: Other - IV fluids, IV antibiotics
[2018-11-14 11:38] LABS: HEMATOCRIT 31.6 % (37.9-51.0); MEAN CORPUSCULAR HEMOGLOBIN 30.2 pg (27.0-33.4); MEAN CORPUSCULAR HGB CONC 33.2 g/dL (32.0-36.0); MEAN CORPUSCULAR VOLUME 91 fl (80-97); PLATELET COUNT 271 10^3/uL (150-450); RED BLOOD COUNT 3.47 10^6/uL (4.35-5.55)
[2018-11-14 11:41] LABS: HEMOGLOBIN 10.5 g/dL (13.5-17.0)
[2018-11-14 11:57] LABS: ANION GAP 8 (5-19); BLOOD UREA NITROGEN 36 mg/dL (7-20); CARBON DIOXIDE 23 mmol/L (22-30); CHLORIDE 104 mmol/L (98-107); GLUCOSE 102 mg/dL (75-110); POTASSIUM 3.7 mmol/L (3.6-5.0)
[2018-11-14 12:08] LABS: CALCIUM 5.4 mg/dL (8.4-10.2)
[2018-11-14] MEDS ORDERED: CALCIUM GLUCONATE 2,000 MG in DEXTROSE 5%-WATER 100 ML IV ONE (14:30)
[2018-11-14] MEDS ORDERED: VANCOMYCIN HCL 1,500 MG in DEXTROSE 5%-WATER 250 ML IV SCH (18:00)
[2018-11-14] MEDS ORDERED: ATROPINE SULFATE 1% OPH SOLN 5 ML BOTTLE SL PRN ×3 (18:17→19:30)
[2018-11-14] MEDS: LORAZEPAM INJ 2 MG/1 ML VIAL IV PRN ×2 (20:28→22:10)
[2018-11-15] MEDS: LORAZEPAM INJ 2 MG/1 ML VIAL IV PRN ×5 (03:05→22:25)
[2018-11-15] MEDS: MORPHINE SULFATE 10 MG/ML INJ IV PRN ×4 (10:11→22:24)
--- NOTE | 2018-11-15 10:24 | Progress Note Acknowledgement ---
Progress Note Acknowledgement Progess Note Acknowledgement: I, the undersigned member of the medical staff with appropriate privileges and with supervisory authority over [ PAC ], a dependent practice allied health professional, acknowledge that I have reviewed the progress notes entered on this patient, and in my professional judgment believe that the assessment made and/or any care evidenced was appropriate
--- NOTE | 2018-11-15 10:31 | PDOC PROGRESS REPORT ---
Subjective Progress Note for:: 11/15/18 Subjective:: Patient was admitted on 11/13/2017 for what appears to be sepsis and stage IV metastatic prostate cancer. At this time he appears to be comfort measures only, Ativan atropine and morphine. Antibiotics appear to be discontinued Reason For Visit: AMS,SIRS Physical Exam Vital Signs: Temp Pulse Resp BP Pulse Ox 99.0 F 117 H 20 93/49 L 99 11/14/18 20:02 11/14/18 20:02 11/14/18 20:02 11/14/18 20:02 11/14/18 20:02 Intake & Output 11/14/18 11/15/18 11/16/18 06:59 06:59 06:59 Intake Total 3400 1742 Output Total 850 Balance 3400 892 Weight 95.6 kg 95.5 kg General appearance: PRESENT: no acute distress, other - Patient sleeping when I entered the room arouses easily. Family has just stepped out to go for breakfast Respiratory exam: PRESENT: clear to auscultation ana. ABSENT: rales, rhonchi, wheezes Cardiovascular exam: PRESENT: RRR. ABSENT: diastolic murmur, rubs, systolic murmur Results Laboratory Results: 11/14/18 11:22 11/14/18 11:22 11/14/18 11/14/18 11/14/18 11:22 11:22 11:22 WBC 8.0 RBC 3.47 L Hgb 10.5 L D Hct 31.6 L MCV 91 MCH 30.2 MCHC 33.2 RDW 16.0 H Plt Count 271 Sodium 135.1 L Potassium 3.7 Chloride 104 Carbon Dioxide 23 Anion Gap 8 BUN 36 H Creatinine 0.64 Est GFR ( Amer) > 60 Glucose 102 Calcium 5.4 L* Ionized Calcium Rafiq 0.80 L Magnesium 2.2 Impressions: Chest X-Ray 11/13/18 18:56 IMPRESSION: NO ACUTE FINDINGS. Assessment and Plan - Diagnosis (2) Sepsis Qualifiers: Sepsis type: sepsis due to unspecified organism Sepsis acute organ dysfunction status: unspecified Qualified Code(s): A41.9 - Sepsis, unspecified organism Is this a current diagnosis for this admission?: Yes Plan: 11/15/2018 on admission patient was empirically started on antibiotics blood cultures have showed gram-positive cocci on a preliminary report. However at this time patient is comfort measures only and antibiotics have been discon tinued Yesterday's WBCs were 8000 which were about the same as admission, admission INR was 2.46, yesterday's electrolytes showed sodium 135 potassium 3.7 BUN of 8 creatinine 36 calcium is still low at 5.4 [place] 2.2 Lactic acid on admission was 1.4 (3) COPD (chronic obstructive pulmonary disease) Qualifiers: Chronic bronchitis type: unspecified Is this a current diagnosis for this admission?: Yes Plan: Patient be continued on his usual treatment for COPD. His O2 sat will be followed on a regular basis throughout his hospital course. November 14, 2018-continue with home COPD treatment. O2 per protocol. 11/15/2018 O2 saturation is 99% 2 L nasal cannula. No respiratory distress patient sleeping (4) Pain of metastatic malignancy Is this a current diagnosis for this admission?: Yes Plan: [id number] patient is being maintained on morphine and Ativan. Both PRN - Time Time Spent with patient: 25-34 minutes
[2018-11-16] MEDS: MORPHINE SULFATE 10 MG/ML INJ IV PRN ×5 (00:18→21:24)
--- NOTE | 2018-11-16 11:03 | PDOC PROGRESS REPORT ---
Subjective Progress Note for:: 11/16/18 Subjective:: Patient was admitted on 11/13/2018 for what appears to be sepsis and stage IV metastatic prostate cancer. At this time he appears to be comfort measures only, Ativan atropine and morphine. Antibiotics appear to be discontinued. 11/16/2018 patient is on comfort measures only secondary to stage IV metastatic prostate cancer and sepsis. I adjusted his morphine yesterday and made it q. one hour. Patient is resting more comfortably now. Family seems satisfied. Reason For Visit: AMS,SIRS Physical Exam Vital Signs: Temp Pulse Resp BP Pulse Ox 98.6 F 108 H 14 101/60 98 11/16/18 07:57 11/16/18 07:57 11/16/18 07:57 11/16/18 07:57 11/16/18 07:57 Intake & Output 11/15/18 11/16/18 11/17/18 06:59 06:59 06:59 Intake Total 1742 25 Output Total 850 625 Balance 892 -600 Weight 95.5 kg 95.3 kg General appearance: PRESENT: no acute distress, well-developed, well-nourished Respiratory exam: PRESENT: clear to auscultation ana. ABSENT: rales, rhonchi, wheezes Cardiovascular exam: PRESENT: RRR. ABSENT: diastolic murmur, rubs, systolic murmur Neurological exam: PRESENT: other - Patient sleeping due to morphine and Ativan Psychiatric exam: PRESENT: other - Patient sleeping secondary to morphine and Ativan Results Laboratory Results: 11/14/18 11:22 11/14/18 11:22 Impressions: Chest X-Ray 11/13/18 18:56 IMPRESSION: NO ACUTE FINDINGS. Assessment and Plan - Diagnosis (1) Prostate cancer metastatic to bone Is this a current diagnosis for this admission?: Yes Plan: 11/15/2018 patient is complaining of breakthrough pain. Prior to come to the hospital he was on slow release morphine twice daily as well as gabapentin. Increase the frequency he can have his medication. Family is in agreement. 11/16/2018 morphine dosing and Ativan appear to be adequate now. Patient resting comfortably. Patient comfort care only (2) Sepsis Qualifiers: Sepsis type: sepsis due to unspecified organism Sepsis acute organ dysfunction status: unspecified Qualified Code(s): A41.9 - Sepsis, unspecified organism Is this a current diagnosis for this admission?: Yes Plan: 11/15/2018 on admission patient was empirically started on antibiotics blood cultures have showed gram-positive cocci on a preliminary report. However at this time patient is comfort measures only and antibiotics have been discontinued Yesterday's WBCs were 8000 which were about the same as admission, admission INR was 2.46, yesterday's electrolytes showed sodium 135 potassium 3.7 BUN of 8 creatinine 36 calcium is still low at 5.4 Elysium 2.2 Lactic acid on admission was 1.4 11/16/2018 no labs are being checked due to comfort care only. Vital signs remained stable temperature 98.6, pulse 108, blood pressure 101/60 ,O2 sat 98% on 2 L nasal cannula (3) COPD (chronic obstructive pulmonary disease) Qualifiers: Chronic bronchitis type: unspecified Is this a current diagnosis for this admission?: Yes Plan: Patient be continued on his usual treatment for COPD. His O2 sat will be followed on a regular basis throughout his hospital course. November 14, 2018-continue with home COPD treatment. O2 per protocol. 11/15/2018 O2 saturation is 99% 2 L nasal cannula. No respiratory distress patient sleeping 11/16/2018 patient resting secondary to morphine and Ativan. No respiratory problems. Patient on 2 L nasal cannula (4) Pain of metastatic malignancy Is this a current diagnosis for this admission?: Yes Plan: 11-15-18 patient is being maintained on morphine and Ativan. Both PRN. Will increase in frequency of his medications patient is on comfort care. 11/16/2018 since pain is being managed now with IV morphine, with good control - Time Time Spent with patient: 25-34 minutes - Comfort measures only
[2018-11-16] MEDS ORDERED: DIPHENHYDRAMINE HCL 50 MG/ML VIAL ONE (14:42)
[2018-11-16] MEDS: DIPHENHYDRAMINE HCL 50 MG/ML VIAL IV PRN (21:29)
[2018-11-17] MEDS: MORPHINE SULFATE 10 MG/ML INJ IV PRN ×5 (01:37→21:58)
[2018-11-17] MEDS: DIPHENHYDRAMINE HCL 50 MG/ML VIAL IV PRN (08:26)
--- NOTE | 2018-11-17 14:31 | PDOC PROGRESS REPORT ---
Subjective Progress Note for:: 11/17/18 Subjective:: Patient was admitted on 11/13/2018 for what appears to be sepsis and stage IV metastatic prostate cancer. At this time he appears to be comfort measures only, Ativan atropine and morphine. Antibiotics appear to be discontinued. 11/16/2018 patient is on comfort measures only secondary to stage IV metastatic prostate cancer and sepsis. I adjusted his morphine yesterday and made it q. one hour. Patient is resting more comfortably now. Family seems satisfied. 11/17/2018 as above note states patient is comfort care. Discharge planning has seen the patient today and is looking at long-term displacement talking to the family family will make a decision concerning treatment issues. Patient is being maintained on IV morphine and IV Ativan. Patient uses Benadryl due to the side effects he has a morphine. This appears to be working Reason For Visit: AMS,SIRS Physical Exam Vital Signs: Temp Pulse Resp BP Pulse Ox 98.7 F 132 H 16 113/60 97 11/17/18 07:24 11/17/18 07:24 11/17/18 07:24 11/17/18 07:24 11/17/18 07:24 Intake & Output 11/16/18 11/17/18 11/18/18 06:59 06:59 06:59 Intake Total 25 0 240 Output Total 625 310 500 Balance -600 -310 -260 Weight 95.3 kg 95.1 kg General appearance: PRESENT: no acute distress, other - Arouses easily to voice follows commands Respiratory exam: PRESENT: clear to auscultation ana. ABSENT: rales, rhonchi, wheezes Cardiovascular exam: PRESENT: RRR. ABSENT: diastolic murmur, rubs, systolic murmur Neurological exam: PRESENT: oriented to person, oriented to place, oriented to situation, other - Patient sleeps most of the time due to medication Psychiatric exam: PRESENT: flat affect - Flat affect even when patient is awake not under the influence of medicines Results Laboratory Results: 11/14/18 11:22 11/14/18 11:22 11/13/18 20:23 Blood Blood Culture - Final Staphylococcus Epidermidis 11/13/18 18:50 Blood Blood Culture - Final Micrococcus Species 11/14/18 04:30 Catheterized Urine Urine Culture - Final NO GROWTH 2 DAYS Impressions: Chest X-Ray 11/13/18 18:56 IMPRESSION: NO ACUTE FINDINGS. Assessment and Plan - Diagnosis (1) Prostate cancer metastatic to bone Is this a current diagnosis for this admission?: Yes Plan: 11/15/2018 patient is complaining of breakthrough pain. Prior to come to the hospital he was on slow release morphine twice daily as well as gabapentin. Increase the frequency he can have his medication. Family is in agreement. 11/16/2018 morphine dosing and Ativan appear to be adequate now. Patient resting comfortably. Patient comfort care only. 11/17/2018 morphine and Ativan (2) Sepsis Qualifiers: Sepsis type: sepsis due to unspecified organism Sepsis acute organ dysfunction status: unspecified Qualified Code(s): A41.9 - Sepsis, unspecified organism Is this a current diagnosis for this admission?: Yes Plan: 11/15/2018 on admission patient was empirically started on antibiotics blood c ultures have showed gram-positive cocci on a preliminary report. However at this time patient is comfort measures only and antibiotics have been discontinued Yesterday's WBCs were 8000 which were about the same as admission, admission INR was 2.46, yesterday's electrolytes showed sodium 135 potassium 3.7 BUN of 8 creatinine 36 calcium is still low at 5.4 Elysium 2.2 Lactic acid on admission was 1.4 11/16/2018 no labs are being checked due to comfort care only. Vital signs remained stable temperature 98.6, pulse 108, blood pressure 101/60 ,O2 sat 98% on 2 L nasal cannula 11/18/1979 no treatment for sepsis poor prognosis (3) COPD (chronic obstructive pulmonary disease) Qualifiers: Chronic bronchitis type: unspecified Is this a current diagnosis for this admission?: Yes Plan: Patient be continued on his usual treatment for COPD. His O2 sat will be followed on a regular basis throughout his hospital course. November 14, 2018-continue with home COPD treatment. O2 per protocol. 11/15/2018 O2 saturation is 99% 2 L nasal cannula. No respiratory distress patient sleeping 11/16/2018 patient resting secondary to morphine and Ativan. No respiratory problems. Patient on 2 L nasal cannula 11 17 18 patient is able to maintain his sats at 97% on room air (4) Pain of metastatic malignancy Is this a current diagnosis for this admission?: Yes Plan: 11-15-18 patient is being maintained on morphine and Ativan. Both PRN. Will increase in frequency of his medications patient is on comfort care. 11/16/2018 since pain is being managed now with IV morphine, with good control 11/17/2018 patient is using morphine 7.5 mg IV every 2 hours, patient occasionally uses ativan 1 mg IV every 2 hours - Time Time Spent with patient: 25-34 minutes - Family discussing long-term care with discharge planning. Family does not want the patient's girlfriend be involved in the decision-making process
[2018-11-18] MEDS: MORPHINE SULFATE 10 MG/ML INJ IV PRN ×5 (01:02→21:45)
[2018-11-18] MEDS ORDERED: BENZOCAINE/MENTHOL SORE THROAT LOZENGE BUCCAL PRN (04:51)
[2018-11-18] MEDS: DIPHENHYDRAMINE HCL 50 MG/ML VIAL IV PRN (10:13)
--- NOTE | 2018-11-18 18:02 | PDOC PROGRESS REPORT ---
Subjective Progress Note for:: 11/18/18 Subjective:: The patient is a 63-year-old male with a past medical history significant for CHF, CAD, DVT, [place], HTN, HLD, PE, COPD, metastatic prostate CA, obesity, and depression who was admitted 11/13/18 for AMS now on comfort measures only. Patient was seen on afternoon rounds with his adult son present. Patient was found resting in bed comfortably on supplemental oxygen via nasal cannula. He is sleeping soundly; I did not make attempts to wake him today. Per patient's son, he does have significant pain but has not noted any other symptoms/complaints. Long discussion had regarding recommendations for discharge to home with hospice services versus SNF with hospice versus inpatient hospice facility. We did discuss the patient was appropriate for inpatient hospice services and at this time is medically stable for such a transfer. All questions answered to his satisfaction; to discuss with his sister and then will follow up with discharge planning. No concerns per nursing. Reason For Visit: AMS,SIRS Physical Exam Vital Signs: Temp Pulse Resp BP Pulse Ox 97.3 F 125 H 14 102/63 98 11/18/18 11:04 11/18/18 11:04 11/18/18 11:04 11/18/18 11:04 11/18/18 11:04 Intake & Output 11/17/18 11/18/18 11/19/18 06:59 06:59 06:59 Intake Total 0 240 Output Total 310 1175 Balance -310 -935 Weight 95.1 kg 94 kg General appearance: PRESENT: no acute distress, well-developed, well-nourished Head exam: PRESENT: atraumatic, normocephalic Eye exam: ABSENT: scleral icterus Ear exam: PRESENT: normal external ear exam Mouth exam: PRESENT: dry mucosa, tongue midline Teeth exam: PRESENT: poor dentation Respiratory exam: PRESENT: clear to auscultation ana, symmetrical, unlabored, other - supplemental oxygen via NC. ABSENT: rales, rhonchi, wheezes Cardiovascular exam: PRESENT: RRR. ABSENT: diastolic murmur, rubs, systolic murmur Pulses: PRESENT: normal dorsalis pedis pul Vascular exam: PRESENT: pallor Rectal exam: PRESENT: deferred Neurological exam: PRESENT: CN II-XII grossly intact, other - Sleeping soundly; did not wake patient for exam. ABSENT: motor sensory deficit Skin exam: PRESENT: dry, intact, pallor, warm. ABSENT: cyanosis, rash Results Laboratory Results: 11/14/18 11:22 11/14/18 11:22 11/13/18 20:23 Blood Blood Culture - Final Staphylococcus Epidermidis 11/13/18 18:50 Blood Blood Culture - Final Micrococcus Species Impressions: Chest X-Ray 11/13/18 18:56 IMPRESSION: NO ACUTE FINDINGS. Assessment and Plan - Diagnosis (1) Prostate cancer metastatic to bone Is this a current diagnosis for this admission?: Yes Plan: Now on comfort care measures only. Continue IV morphine, ativan, benadryl and atropine SL gtts as needed for symptom management. Discharge planning is consulted for disposition; family now interested in inpatient hospice services. (2) SIRS (systemic inflammatory response syndrome) Is this a current diagnosis for this admission?: Yes Plan: Patient was admitted with fever, tachycardia, hypotension, tachypnea, altered mental status, with normal urinalysis and chest x-ray. Blood cultures were positive, however, determined to be contaminants. He did empirically receive IV meropenem; this is since been discontinued. Patient is now comfort care measures only. (3) COPD (chronic obstructive pulmonary disease) Qualifiers: Chronic bronchitis type: unspecified Is this a current diagnosis for this admission?: Yes Plan: Stable and without acute exacerbation at this time. Continue supplemental oxygen for comfort. Comfort care measures only. (4) Pain of metastatic malignancy Is this a current diagnosis for this admission?: Yes Plan: Continue as needed IV morphine sliding scale and IV Ativan as needed for pain management. Patient now on comfort care measures only; limit interventions, position for comfort. - Time Time Spent with patient: 25-34 minutes Medications reviewed and adjusted accordingly: Yes Anticipated discharge: Hospice Within: when bed available
--- NOTE | 2018-11-18 18:02 | Progress Note Acknowledgement ---
Progress Note Acknowledgement Progess Note Acknowledgement: I, the undersigned member of the medical staff with appropriate privileges and with supervisory authority over Nathalia Andrews, a [facility] practice allied health professional, acknowledge that I have reviewed the progress notes entered on this patient, and in my professional judgment believe that the assessment made and/or any care evidenced was appropriate
[2018-11-19] MEDS: MORPHINE SULFATE 10 MG/ML INJ IV PRN ×5 (04:32→20:06)
[2018-11-19] MEDS: LORAZEPAM INJ 2 MG/1 ML VIAL IV PRN ×2 (08:24→21:53)
--- NOTE | 2018-11-19 19:48 | PDOC PROGRESS REPORT ---
Subjective Progress Note for:: 11/19/18 Subjective:: The patient is a 63-year-old male with a past medical history significant for CHF, CAD, DVT, [place], HTN, HLD, PE, COPD, metastatic prostate CA, obesity, and depression who was admitted 11/13/18 for AMS now on comfort measures only. Patient was seen on afternoon rounds with his adult son present. Patient was found resting in bed comfortably on supplemental oxygen via nasal cannula. He is sleeping but woke easily when I said his name. Patient reports continued pain but declines adjustments to medications. Otherwise, no new questions or concerns. No concerns per nursing. Reason For Visit: AMS,SIRS Physical Exam Vital Signs: Temp Pulse Resp BP Pulse Ox 97.5 F 106 H 16 123/64 98 11/19/18 15:39 11/19/18 15:39 11/19/18 15:39 11/19/18 15:39 11/19/18 15:39 Intake & Output 11/18/18 11/19/18 11/20/18 06:59 06:59 06:59 Intake Total 240 120 Output Total 1175 450 Balance -935 -450 120 Weight 94 kg 94 kg General appearance: PRESENT: no acute distress, well-developed, well-nourished Head exam: PRESENT: atraumatic, normocephalic Eye exam: PRESENT: conjunctiva pale, EOMI, PERRLA Mouth exam: PRESENT: dry mucosa, tongue midline Respiratory exam: PRESENT: clear to auscultation ana, other - supplemental oxyg en via NC. ABSENT: rales, rhonchi, wheezes Cardiovascular exam: PRESENT: RRR. ABSENT: diastolic murmur, rubs, systolic murmur Vascular exam: PRESENT: pallor Neurological exam: PRESENT: alert, awake, oriented to person, oriented to place, oriented to time, oriented to situation, CN II-XII grossly intact, other - fatigue. ABSENT: motor sensory deficit Skin exam: PRESENT: dry, intact, pallor, warm. ABSENT: cyanosis, rash Results Laboratory Results: 11/14/18 11:22 11/14/18 11:22 Impressions: Chest X-Ray 11/13/18 18:56 IMPRESSION: NO ACUTE FINDINGS. Assessment and Plan - Diagnosis (1) Prostate cancer metastatic to bone Is this a current diagnosis for this admission?: Yes Plan: Now on comfort care measures only. Continue IV morphine, ativan, benadryl and atropine SL gtts as needed for symptom management. Discharge planning is consulted for disposition; family now interested in inpatient hospice services. (2) SIRS (systemic inflammatory response syndrome) Is this a current diagnosis for this admission?: Yes Plan: Patient was admitted with fever, tachycardia, hypotension, tachypnea, altered mental status, with normal urinalysis and chest x-ray. Blood cultures were positive, however, determined to be contaminants. He did empirically receive IV meropenem; this is since been discontinued. Patient is now comfort care measures only. (3) COPD (chronic obstructive pulmonary disease) Qualifiers: Chronic bronchitis type: unspecified Is this a current diagnosis for this admission?: Yes Plan: Stable and without acute exacerbation at this time. Continue supplemental oxygen for comfort. Comfort care measures only. (4) Pain of metastatic malignancy Is this a current diagnosis for this admission?: Yes Plan: Continue as needed IV morphine sliding scale and IV Ativan as needed for pain management. Patient now on comfort care measures only; limit interventions, position for c omfort.
[2018-11-20] MEDS: MORPHINE SULFATE 10 MG/ML INJ IV PRN ×6 (03:17→19:50)
[2018-11-20] MEDS: DIPHENHYDRAMINE HCL 50 MG/ML VIAL IV PRN ×3 (03:17→17:24)
[2018-11-20] MEDS ORDERED: DIPHENHYDRAMINE HCL 50 MG/ML VIAL IV SCH (10:00)
--- NOTE | 2018-11-20 12:31 | PDOC TRANSFER SUMMARY ---
General - Admit/Disc Date/PCP Admission Date/Primary Care Provider: 11/14/18 00:10 KHRIS CANTRELL MD Discharge Date: 11/20/18 - Discharge Diagnosis (1) Prostate cancer metastatic to bone Is this a current diagnosis for this admission?: Yes Summary: Now on comfort care measures only. Continue IV morphine, ativan, benadryl and atropine SL gtts as needed for symptom management. Has been accepted at [facility]; awaiting room assignment. (2) SIRS (systemic inflammatory response syndrome) Is this a current diagnosis for this admission?: Yes Summary: Patient was admitted with fever, tachycardia, hypotension, tachypnea, altered mental status, with normal urinalysis and chest x-ray. Blood cultures were positive, however, determined to be contaminants. He did empirically receive IV meropenem; this is since been discontinued. Patient is now comfort care measures only. (3) COPD (chronic obstructive pulmonary disease) Is this a current diagnosis for this admission?: Yes Summary: Stable and without acute exacerbation at this time. Continue supplemental oxygen for comfort. Comfort care measures only. (4) Pain of metastatic malignancy Is this a current diagnosis for this admission?: Yes Summary: Continue as needed IV morphine sliding scale and IV Ativan as needed for pain management. Patient now on comfort care measures only; limit interventions, position for comfort. (5) Need for comfort care Is this a current diagnosis for this admission?: Yes Summary: Has been accepted at [facility]; awaiting room assignment. Currently stable for discharge ; Vital signs obtained last night show heart rate 100, BP 96/71, RR 12, 100% on nasal cannula - Additional Information Resuscitation Status: Do Not Resuscitate Home Medications: No Home Medications 11/18/18 History of Present Illness Admission Date/PCP: 11/14/18 00:10 KHRIS CANTRELL MD History of Present Illness: Per H&P by Dr. Anna: JEANNINE VALLECILLO is a 63 year old male who presented to the emergency room with a four-day history of altered mental status (lethargy and confusion). The patient and his significant other relate that for the last 4 days he has been increasingly confused and lethargic. He has been noted to have a decreased appetite and poor oral intake of fluids, additionally he has complained of feeling cold (possible chills) and has required them to turn off the air conditioner in order to make him comfortable. They deny prior similar episodes and have not identified any aggravating or ameliorating factors for his lethargy and confusion. Patient was seen by his nurses aide today and was found to be hypotensive and tachycardic resulting in EMS coming to the home. EMS found the patient to have a temperature of 100.6 F and administered acetaminophen. They also found the patient to have a blood pressure of 70's sy stolic and initiated transport to the emergency room. In the ER he was found to be hypotensive and tachycardic both of which responded to administration of IV fluids. No obvious source of infection was found although it was noted that the patient is on oral chemotherapy (Zytiga) for his stage IV metastatic prostate carcinoma. The patient will be DNR status and will be admitted for further evaluation. Physical Exam Vital Signs: Temp Pulse Resp BP Pulse Ox 97.4 F 106 H 12 96/71 L 100 11/19/18 19:50 11/20/18 07:00 11/19/18 19:50 11/19/18 19:50 11/19/18 19:50 Intake & Output 11/19/18 11/20/18 11/21/18 06:59 06:59 06:59 Intake Total 120 Output Total 450 375 Balance -450 -255 Weight 94 kg 93.8 kg General appearance: PRESENT: no acute distress, cooperative, well-developed, well-nourished Head exam: PRESENT: atraumatic, normocephalic Eye exam: PRESENT: conjunctiva pale, EOMI, PERRLA Mouth exam: PRESENT: dry mucosa, tongue midline Respiratory exam: PRESENT: decreased breath sounds - Bibasilar, prolonged expiratory phas, symmetrical, unlabored Cardiovascular exam: PRESENT: RRR Vascular exam: PRESENT: pallor Neurological exam: PRESENT: alert, awake, oriented to person, oriented to place, oriented to time, oriented to situation, CN II-XII grossly intact. ABSENT: motor sensory deficit Skin exam: PRESENT: dry, intact, pallor, warm Results Laboratory Results: 11/14/18 11:22 11/14/18 11:22 Impressions: Chest X-Ray 11/13/18 18:56 IMPRESSION: NO ACUTE FINDINGS. Transfer Plan - Time Spent with Patient Time spent with patient: Less than 30 Minutes Qualifiers - * PATIENT BEING DISCHARGED WITH ANY OF THE FOLLOWING DIAGNOSIS: No Plan Discharge Plan: Transfer to inpatient hospice services for continued care. Time Spent: Greater than 30 Minutes
[2018-11-20] MEDS: LORAZEPAM INJ 2 MG/1 ML VIAL IV PRN ×3 (13:09→20:22)
[2018-11-21] MEDS: MORPHINE SULFATE 10 MG/ML INJ IV PRN ×7 (00:29→19:20)
[2018-11-21] MEDS: LORAZEPAM INJ 2 MG/1 ML VIAL IV PRN ×4 (00:30→15:06)
[2018-11-21] MEDS: DIPHENHYDRAMINE HCL 50 MG/ML VIAL IV PRN ×4 (00:31→19:21)
--- NOTE | 2018-11-21 15:15 | PDOC PROGRESS REPORT ---
Subjective Progress Note for:: 11/21/18 Subjective:: The patient is a 63-year-old male with a past medical history significant for CHF, CAD, DVT, [place], HTN, HLD, PE, COPD, metastatic prostate CA, obesity, and depression who was admitted 11/13/18 for AMS now on comfort measures only. Patient was seen on morning rounds. Patient was found resting in bed comfortably on room air. He is sleeping soundly; did not make attempts to wake him. No concerns per nursing. Reason For Visit: AMS,SIRS Physical Exam Vital Signs: Temp Pulse Resp BP Pulse Ox 98.5 F 103 H 18 106/69 91 L 11/21/18 08:02 11/21/18 08:02 11/21/18 08:02 11/21/18 08:02 11/21/18 08:02 Intake & Output 11/20/18 11/21/18 11/22/18 06:59 06:59 06:59 Intake Total 120 110 0 Output Total 375 425 Balance -255 -315 0 Weight 93.8 kg 93 kg General appearance: PRESENT: no acute distress, obese, well-developed, well- nourished Head exam: PRESENT: atraumatic, normocephalic Respiratory exam: PRESENT: symmetrical, unlabored, other - shallow Cardiovascular exam: PRESENT: irregular rhythm Vascular exam: PRESENT: pallor Skin exam: PRESENT: dry, intact, pallor Results Laboratory Results: 11/14/18 11:22 11/14/18 11:22 Impressions: Chest X-Ray 11/13/18 18:56 IMPRESSION: NO ACUTE FINDINGS. Assessment and Plan - Diagnosis (1) Prostate cancer metastatic to bone Is this a current diagnosis for this admission?: Yes Plan: Now on comfort care measures only. Continue IV morphine, ativan, benadryl and atropine SL gtts as needed for symptom management. Discharge planning is consulted for disposition; family now interested in inpatient hospice services. (2) SIRS (systemic inflammatory response syndrome) Is this a current diagnosis for this admission?: Yes Plan: Patient was admitted with fever, tachycardia, hypotension, tachypnea, altered mental status, with normal urinalysis and chest x-ray. Blood cultures were positive, however, determined to be contaminants. He did empirically receive IV meropenem; this is since been discontinued. Patient is now comfort care measures only. (3) COPD (chronic obstructive pulmonary disease) Qualifiers: Chronic bronchitis type: unspecified Is this a current diagnosis for this admission?: Yes Plan: Stable and without acute exacerbation at this time. Continue supplemental oxygen for comfort. Comfort care measures only. (4) Pain of metastatic malignancy Is this a current diagnosis for this admission?: Yes Plan: Continue as needed IV morphine sliding scale and IV Ativan as needed for pain management. Patient now on comfort care measures only; limit interventions, position for comfort. (5) Need for comfort care Is this a current diagnosis for this admission?: Yes Plan: Has been accepted at [facility]; awaiting room assignment. Currently stable for transfer. - Time Time Spent with patient: Less than 15 minutes Medications reviewed and adjusted accordingly: Yes Anticipated discharge: Hospice Within: when bed available
[2018-11-22] MEDS: DIPHENHYDRAMINE HCL 50 MG/ML VIAL IV PRN ×4 (00:30→17:38)
[2018-11-22] MEDS: MORPHINE SULFATE 10 MG/ML INJ IV PRN ×6 (00:32→20:37)
[2018-11-22] MEDS ORDERED: MORPHINE SULFATE 10 MG/ML INJ IV PRN (12:04)
[2018-11-22] MEDS: LORAZEPAM INJ 2 MG/1 ML VIAL IV PRN ×3 (12:17→20:40)
--- NOTE | 2018-11-22 14:41 | PDOC PROGRESS REPORT ---
Subjective Progress Note for:: 11/22/18 Subjective:: The patient is a 63-year-old male with a past medical history significant for CHF, CAD, DVT, [place], HTN, HLD, PE, COPD, metastatic prostate CA, obesity, and depression who was admitted 11/13/18 for AMS now on comfort measures only. Patient was seen on morning rounds. Patient was found resting in bed comfortably on room air. He was sleeping, but woke easily when I said his name. He says he's comfortable and declines any needs. Nursing reports increased confusion this morning. Reason For Visit: AMS,SIRS Physical Exam Vital Signs: Temp Pulse Resp BP Pulse Ox 99.0 F 132 H 17 118/81 94 11/22/18 07:45 11/22/18 14:00 11/22/18 07:45 11/22/18 07:45 11/22/18 07:45 Intake & Output 11/21/18 11/22/18 11/23/18 06:59 06:59 06:59 Intake Total 110 120 100 Output Total 425 375 50 Balance -315 -255 50 Weight 93 kg 90.9 kg General appearance: PRESENT: no acute distress, well-developed, well-nourished Head exam: PRESENT: atraumatic, normocephalic Eye exam: PRESENT: conjunctiva pale, EOMI, PERRLA Respiratory exam: PRESENT: symmetrical, unlabored, other - shallow Cardiovascular exam: PRESENT: irregular rhythm, tachycardia Vascular exam: PRESENT: pallor Skin exam: PRESENT: dry, intact, pallor. ABSENT: warm - cool extremities Results Laboratory Results: 11/14/18 11:22 11/14/18 11:22 Impressions: Chest X-Ray 11/13/18 18:56 IMPRESSION: NO ACUTE FINDINGS. Assessment and Plan - Diagnosis (1) Prostate cancer metastatic to bone Is this a current diagnosis for this admission?: Yes Plan: Now on comfort care measures only. Continue IV morphine, ativan, benadryl and atropine SL gtts as needed for symptom management. Discharge planning is consulted for disposition; family now interested in inpatient hospice services. (2) SIRS (systemic inflammatory response syndrome) Is this a current diagnosis for this admission?: Yes Plan: Patient was admitted with fever, tachycardia, hypotension, tachypnea, altered mental status, with normal urinalysis and chest x-ray. Blood cultures were positive, however, determined to be contaminants. He did empirically receive IV meropenem; this is since been discontinued. Patient is now comfort care measures only. (3) COPD (chronic obstructive pulmonary disease) Qualifiers: Chronic bronchitis type: unspecified Is this a current diagnosis for this admission?: Yes Plan: Stable and without acute exacerbation at this time. Continue supplemental oxygen for comfort. Comfort care measures only. (4) Pain of metastatic malignancy Is this a current diagnosis for this admission?: Yes Plan: Continue as needed IV morphine sliding scale and IV Ativan as needed for pain management. Patient now on comfort care measures only; limit interventions, position for comfort. (5) Need for comfort care Is this a current diagnosis for this admission?: Yes Plan: Has been accepted at [facility]; awaiting room assignment. Currently stable for transfer. - Time Time Spent with patient: Less than 15 minutes Medications reviewed and adjusted accordingly: Yes Anticipated discharge: Hospice Within: when bed available
[2018-11-23] MEDS: DIPHENHYDRAMINE HCL 50 MG/ML VIAL IV PRN ×3 (03:57→13:17)
[2018-11-23] MEDS: LORAZEPAM INJ 2 MG/1 ML VIAL IV PRN ×3 (03:58→13:17)
[2018-11-23] MEDS: MORPHINE SULFATE 10 MG/ML INJ IV PRN ×3 (06:39→13:17)
[2018-11-23 08:41] VITALS: BP 105/66
--- NOTE | 2018-11-23 10:21 | PDOC PROGRESS REPORT ---
Subjective Progress Note for:: 11/23/18 Subjective:: The patient is a 63-year-old male with a past medical history significant for CHF, CAD, DVT, [place], HTN, HLD, PE, COPD, metastatic prostate CA, obesity, and depression who was admitted 11/13/18 for AMS now on comfort measures only. Patient was seen on morning rounds. Patient was found resting in bed comfortably on room air. He was sleeping, but woke easily when I said his name. He mumbles incoherently. Recently received pain medication. No concerns per nursing. Reason For Visit: AMS,SIRS Physical Exam Vital Signs: Temp Pulse Resp BP Pulse Ox 98.9 F 115 H 22 H 105/66 95 11/23/18 07:37 11/23/18 07:37 11/23/18 07:37 11/23/18 07:37 11/23/18 07:37 Intake & Output 11/22/18 11/23/18 11/24/18 06:59 06:59 06:59 Intake Total 120 322 Output Total 375 1000 Balance -255 -678 Weight 90.9 kg 91.1 kg General appearance: PRESENT: no acute distress, well-developed, well-nourished Head exam: PRESENT: atraumatic, normocephalic Eye exam: PRESENT: conjunctiva pale, EOMI, PERRLA Respiratory exam: PRESENT: symmetrical, unlabored Cardiovascular exam: PRESENT: +S1, +S2 Vascular exam: PRESENT: pallor Neurological exam: PRESENT: altered Skin exam: PRESENT: dry, intact, warm Results Laboratory Results: 11/14/18 11:22 11/14/18 11:22 Impressions: Chest X-Ray 11/13/18 18:56 IMPRESSION: NO ACUTE FINDINGS. Assessment and Plan - Diagnosis (1) Prostate cancer metastatic to bone Is this a current diagnosis for this admission?: Yes Plan: Now on comfort care measures only. Continue IV morphine, ativan, benadryl and atropine SL gtts as needed for symptom management. Discharge planning is consulted for disposition; family now interested in inpatient hospice services. Has received room assignment to [facility] hosp[facility] facility; to transfer into their care today. (2) SIRS (systemic inflammatory response syndrome) Is this a current diagnosis for this admission?: Yes Plan: Patient was admitted with fever, tachycardia, hypotension, tachypnea, altered mental status, with normal urinalysis and chest x-ray. Blood cultures were positive, however, determined to be contaminants. He did empirically receive IV meropenem; this is since been discontinued. Patient is now comfort care measures only. (3) COPD (chronic obstructive pulmonary disease) Qualifiers: Chronic bronchitis type: unspecified Is this a current diagnosis for this admission?: Yes Plan: Stable and without acute exacerbation at this time. Continue supplemental oxygen for comfort. Comfort care measures only. (4) Pain of metastatic malignancy Is this a current diagnosis for this admission?: Yes Plan: Continue as needed IV morphine sliding scale and IV Ativan as needed for pain management. Patient now on comfort care measures only; limit interventions, position for comfort. (5) Need for comfort care Is this a current diagnosis for this admission?: Yes Plan: Has been accepted at [facility]; has received room assignment. Currently stable for transfer. - Time Time Spent with patient: 15-24 minutes Medications reviewed and adjusted accordingly: Yes Anticipated discharge: Hospice Within: within 24 hours
== END 2018-11-23 14:03 | disposition hospice, inpatient (51) | DRG 723 ==
LOC: ER 18:45 → EH 11-14 00:10 → 3W 11-14 05:55
PROVIDERS: ADMIT Emergency Medicine; ATTEND Emergency Medicine
DX: C61 Malignant neoplasm of prostate (principal); C79.51 Secondary malignant neoplasm of bone; G82.20 Paraplegia, unspecified; R65.10 Systemic inflammatory response syndrome (SIRS) of non-infectious origin without acute organ dysfunction; Z51.5 Encounter for palliative care; J44.9 Chronic obstructive pulmonary disease, unspecified; Z66 Do not resuscitate; E78.5 Hyperlipidemia, unspecified; R00.0 Tachycardia, unspecified; I95.9 Hypotension, unspecified; G89.3 Neoplasm related pain (acute) (chronic); I50.9 Heart failure, unspecified; Z79.899 Other long term (current) drug therapy; Z95.1 Presence of aortocoronary bypass graft; Z87.891 Personal history of nicotine dependence; Z88.8 Allergy status to other drugs, medicaments and biological substances; Z99.81 Dependence on supplemental oxygen; I25.10 Atherosclerotic heart disease of native coronary artery without angina pectoris; I25.2 Old myocardial infarction; Z86.711 Personal history of pulmonary embolism; Z86.718 Personal history of other venous thrombosis and embolism
CPT/HCPCS: 36415; 36430; 71045; 80048; 80053; 81001; 82330; 82803; 83605; 83735; 84481; 85025; 85610; 86850; 86900; 86901; 86920; 87040; 87077; 87086; 87186; 93005; 93010; 94640; 96361; 96365; 96375; 99291; J0610; J0692; J1200; J1265; J2060; J2185; J2270; J2550; J3370; J3490; J7030; J7060; J7120; P9016